=== PATIENT | female | born 1970 ===

== ENCOUNTER 2021-06-30 11:03 | Inpatient (IN) | payer OTHER, SELFPAY ==
--- NOTE | ~2021-06-30 | FL_ITS ---
EXAMINATION: XR FLUOROSCOPY WITH IMAGES CLINICAL INFORMATION: Left ureteral stone COMPARISON: None. TECHNIQUE: Fluoroscopy performed by Dr. Abner Michaud. Fluoroscopy time: 36.4 seconds Images: 2 FINDINGS: There is initially a wire extending into the left ureter. On the final image a left ureteral stent is partially visualized. FL/FL guidance in OR IMPRESSION: Fluoroscopic guidance a pyelogram with left ureteral stent placement.
--- NOTE | ~2021-06-30 | CT_ITS ---
EXAMINATION: CT ABDOMEN AND PELVIS WITHOUT CONTRAST CLINICAL INFORMATION: pt c left flank pain/hematuria hx of stones . COMPARISON: No pertinent prior studies are available for comparison. TECHNIQUE: Multidetector volumetric imaging was performed from the superior aspect of the liver through the pubic symphysis without contrast per renal stone protocol. Sagittal and coronal reformatted images were obtained on the technologist workstation. This CT examination was performed using dose optimization techniques as appropriate, variously including the following: *Automated exposure control *Adjustment of mA and/or kV according to patient size (this includes techniques or standardized protocols for targeted exams where dose is matched to indication/reason for exam; i.e. extremities or head) *Use of iterative reconstruction technique DLP: 895 mGy-cm. FINDINGS: LUNG BASES: The visualized lung bases are unremarkable. LIVER, GALLBLADDER, BILIARY TREE: The non-contrast liver is normal in size, shape, and attenuation. No focal hepatic lesion or biliary ductal dilatation is present. Gallbladder surgically absent PANCREAS: Unremarkable. SPLEEN: Unremarkable. ADRENAL GLANDS: Unremarkable. KIDNEYS AND URETERS: Left-sided hydronephrosis and hydroureter extending up to a 8 mm calcification in the mid left ureter at the level of L5/S1. Contralateral ureter is unremarkable. There are several small intrarenal calculi incidentally seen in the contralateral right kidney the largest of these measures 8 mm in maximal diameter in the mid calyx. BLADDER: Unremarkable. GASTROINTESTINAL TRACT: The small and large bowel are unremarkable. The appendix is nonvisualized and possibly surgically absent. ABDOMINAL WALL: No significant hernia is appreciated. LYMPHOVASCULAR STRUCTURES: No lymphadenopathy. The aorta is unremarkable.. PELVIC VISCERA: Surgically absent OSSEUS STRUCTURES: Multilevel degenerative changes in the spine CT/CT abdomen pelvis wo con IMPRESSION: Left-sided hydronephrosis and hydroureter extending up to an 8 mm calcification in the mid left ureter at the level of the pelvic brim. Nonobstructive intrarenal calculi seen in the contralateral right kidney..
[2021-06-30 12:24] VITALS: BP 156/96; PULSE 77; RESP 18; TEMP 35.9; O2SAT 98; BMI 44.9
[2021-06-30 12:40] LABS: MANUAL DIFF FLAG NO
[2021-06-30 12:46] LABS: Appearance Urine CLEAR; Color Urine YELLOW; Glucose Urine UA NEG (NEG); Leukocyte Esterase Urine NEG (NEG); Nitrite Urine NEG (NEG); Specific Gravity - Urine >= 1.030 (1.005-1.025); UACC Culture Trigger NO; Urine Blood 3+ (NEG); Urine Ketones NEG (NEG); Urine Protein 1+ MG/DL (NEG-TRACE)
[2021-06-30 12:47] LABS: Basophils Percent Auto 0.3 % (0-2); Eosinophils Absolute Auto 0.1 X10*3/uL (0.0-0.4); Hematocrit 41.4 % (37.0-47.0); Hemoglobin 13.4 g/dl (12.0-16.0); Imm Gran Abs Auto 0.04 X10*3/uL (0.00-0.03); Imm Gran Pct Auto 0.3 % (0.0-0.4); Lymphocytes Absolute Auto 2.5 X10*3/uL (1.2-4.9); Lymphocytes Percent Auto 18.2 % (20-40); Mean Corpuscular HGB Conc 32.4 g/dl (31.0-35.0); Mean Corpuscular Hemoglobin 27.5 pg (27.0-33.0); Mean Platelet Volume 10.3 fL (9.4-12.3); Monocytes Absolute Auto 0.7 X10*3/uL (0.1-1.2); Monocytes Percent Auto 5.4 % (2-11); Neutrophils Absolute Auto 10.2 x10*3/uL (2.0-8.3); Neutrophils Percent Auto 74.8 % (45-73); Platelet Count 320 X10*3/uL (160-400); Red Blood Count 4.87 X10*6/uL (4.20-5.50); Red Cell Distribution Width 12.9 % (11.0-16.0); White Blood Count 13.6 X10*3/uL (4.8-10.8)
[2021-06-30 12:58] LABS: Anion Gap 11 (12-20); Blood Urea Nitrogen 15 mg/dL (9-16); Calcium 9.7 mg/dL (8.4-10.2); Carbon Dioxide 27 mmol/L (22-29); Chloride 105 mmol/L (96-108); Creatinine Clr Calc Pharmacy 84.3; Estimated Glomerular Filt Rate > 60; Glucose Random 183 mg/dL (60-115); Potassium 4.2 mmol/L (3.3-5.1); Sodium 139 mmol/L (135-145)
[2021-06-30 13:11] LABS: RBC Urine 50-75 /HPF (0); Squamous Epithelial Cell Urine 2+ /LPF; UACC CULT YES
[2021-06-30 21:21] VITALS: BP 143/96; PULSE 79; RESP 18; TEMP 36.1; O2SAT 98
--- NOTE | 2021-06-30 21:28 | ED.ABDPAIN ---
HPI - Abdominal Pain General Chief Complaint: Abdominal Pain Stated Complaint: back and abd pain , nasuea Time Seen by Provider: 06/30/21 21:22 Source: patient Mode of arrival: ambulatory Limitations: no limitations History of Present Illness HPI narrative: 51-year-old Kitt[place]-speaking female with a past medical history of kidney stones, diabetes, hypertension, hyperlipidemia presenting to the ED with complaints of atraumatic left back/flank/left lower quadrant/left groin pain with associated nausea/vomiting for the past 2 days. Reports that she seen her primary care provider on Wednesday and was called reporting that she had blood in her urine and that if she developed any back pain or abdominal pain that she should come to the emergency department for further evaluation treatment. She denies any fevers, chills, dizziness, headaches, neck pain/stiffness, trouble swallowing or breathing, chest pain or shortness of breath, dyspnea on exertion, orthopnea, palpitations, paresthesias, dysuria, hematuria, abnormal vaginal discharge, black or bloody stools, rashes, recent falls, trauma, IV drug use, recent travel or sick contacts or any other symptoms complaints or concerns at this time. MD elicited complaint: abdominal pain and flank pain Pertinent past history: kidney stones Onset (ago): day(s) (2) Pain Consistency: constant Location: LLQ and L flank Severity: moderate Quality: sharp Radiation: back Exacerbating factors: nothing Relieving factors: nothing Associated symptoms: nausea and vomiting Related Data Allergies Allergy/AdvReac Type Severity Reaction Status Date / Time No Known Allergies Allergy Verified 06/30/21 12:23 [No Known Allergies*] Review of Systems Review of Systems Constitutional : No Fever, No Chills, No Night Sweats, No Fatigue, No Malaise Cardiovascular : No Chest Pain, No SOB Respiratory : No Cough, No Sputum, No Wheezing, No Dyspnea Gastrointestinal : + Nausea, + Vomiting, + abdominal Pain, + Flank pain, No Hematochezia, No Melena, No Diarrhea Genitourinary : No irregular bleeding, No Dysuria, No Urinary Frequency, No Hematuria,No Urinary Incontinence, No Urgency, No Flank Pain Musculoskeletal : No joint pain, No Myalgias, No Joint Swelling Skin : No Skin Lesions, No rash Neuro : No Weakness, No Numbness, No Paresthesias, No Loss of Consciousness, No Dizziness, No Headache Heme/Lymph: No Lymphadenopathy Endocrine : No Temperature Intolerance Yes all other systems are reviewed and are negative [facility] Past Medical History Attestation statement: The following information was validated with the patient. Social History Social History Advance Directives: No Advance Directives Information Provided: No Physical Exam ED Vital Signs: Vital Signs - 24 hr 06/30/21 12:24 06/30/21 21:21 Temperature 96.6 F L 97.0 F Pulse Rate 77 79 Respiratory Rate 18 18 Blood Pressure 156/96 H 143/96 H Pulse Oximetry 98 98 BMI result Body Mass Index 44.9 Vital signs have been reviewed and blood pressure 156/96. Pulse 77. Respiration 18. Temperature 96.6 degrees orally. Oxygen saturation 98% on room air. Appearance: Alert. Oriented X3. No acute distress. Head: Normal external exam. Normocephalic. Eyes: PERRLA. EOMI. Conjunctiva and sclera normal. Eyelids normal. ENT: Pharynx normal. Uvula midline. Moist mucous membranes. No trismus noted. No drooling noted. No muffled voice noted. Neck: Normal inspection. Neck supple. FROM. No adenopathy. No meningeal signs. CVS: Normal heart rate and rhythm. Heart sound normal. No murmurs noted. Pulses normal throughout. Respiratory: No respiratory distress. Painless inspiration. Breath sounds normal. No wheezes/rales/rhonchi noted. Chest nontender. No accessory muscle usage noted or decreased air movement noted. Abdomen: Soft and moderate tenderness palpation to the left flank/left lower quadrant/left groin with guarding. Nondistended. No rigidity. Bowel sounds normal in all 4 quadrants. No distention noted. No organomegaly noted. No visible injury noted. No rebound tenderness. Negative Rovsing sign. Negative obturator's sign. Negative psoas sign. Negative [place] sign. Back: + left sided CVA tenderness. No right-sided CVA tenderness noted. Full range of motion noted. No rashes/lesion/induration/fluctuance or signs of infection noted. Patient has a normal steady gait. Patient neuro intact bilateral and distally on all 4 extremities. Reflexes intact bilaterally and distally in all 4 extremities. Skin: Skin warm and dry. Normal skin color. Normal skin turgor. No rashes/lesions/lacerations noted. Extremities: Extremities exhibit normal range of motion. Extremities nontender. Neuro: Oriented X 3. No motor deficit. No sensory deficit. Reflexes normal. Normal steady gait. CN's II-XII intact bilaterally? Course Course Course Narrative: 21:20pm - 51-year-old [place]-speaking female with a past medical history of kidney stones, diabetes, hypertension, hyperlipidemia presenting to the ED with complaints of atraumatic left back/flank/left lower quadrant/left groin pain with associated nausea/vomiting for the past 2 days. Reports that she seen her primary care provider on Wednesday and was called reporting that she had blood in her urine and that if she developed any back pain or abdominal pain that she should come to the emergency department for further evaluation treatment Labs were obtained while the patient was in the waiting room and she had an elevated white blood cell count at 13,000. Anion gap 11. Random glucose 183. Otherwise all other labs are within normal limits. UA revealed +1 protein and lots of red blood cells and 5-white blood cells. Plan: Therefore at this time will obtain a CT scan abdomen pelvis without IV contrast. Provide p.o. Zofran and IM Toradol and re-evaluate. Reevaluation(s) Reevaluation #1: - WBC 13,000 otherwise all other labs WNL. UA revealed blood otherwise negative nitrates/negative leukocytes. She has 5-9 white blood cells and 2 epithelial cells she denies any dysuria therefore most likely not a UTI or pyelonephritis at this time. Patient is tolerating p.o. fluids she was able to drink orange juice. Although her CT scan of her abdomen and pelvis without IV contrast revealed a 8 mm stone with left-sided hydronephrosis and hydroureter therefore I consulted with Dr. Michaud and he recommended admitting the patient to the hospitalist service due to her history of diabetes and being over the age of 48. Therefore I spoke to Dr. Villanueva and he will admit at this time. Patient understands agrees with this plan. Will give a L of IV fluids, 125 mg of IV Solu-Medrol and 0.8 mg of Flomax and plan to admit. Time: 22:21 MDM - Abdominal Pain Medical Records Attestation: I reviewed the patient's medical records. Lab Data Attestation: I reviewed the patient's lab results. Result diagrams: 06/30/21 12:36 06/30/21 12:36 Labs: Lab Results 06/30/21 06/30/21 06/30/21 Range/Units 12:36 12:36 12:36 WBC 13.6 H (4.8-10.8) X10*3/uL RBC 4.87 (4.20-5.50) X10*6/uL Hgb 13.4 (12.0-16.0) g/dl Hct 41.4 (37.0-47.0) % MCV 85.0 (80.0-98.0) fL MCH 27.5 (27.0-33.0) pg MCHC 32.4 (31.0-35.0) g/dl RDW 12.9 (11.0-16.0) % Plt Count 320 (160-400) X10*3/uL MPV 10.3 (9.4-12.3) fL Immature Gran % (Auto) 0.3 (0.0-0.4) % Neut % (Auto) 74.8 H (45-73) % Lymph % (Auto) 18.2 L (20-40) % [place] % (Auto) 5.4 (2-11) % Eos % (Auto) 1.0 (0-4) % Baso % (Auto) 0.3 (0-2) % Lymph # (Auto) 2.5 (1.2-4.9) X10*3/uL [place] # (Auto) 0.7 (0.1-1.2) X10*3/uL Eos # (Auto) 0.1 (0.0-0.4) X10*3/uL Baso # (Auto) 0.0 (0.0-0.2) X10*3/uL Abs Immat Gran (auto) 0.04 H (0.00-0.03) X10*3/uL Absolute Neuts (auto) 10.2 H (2.0-8.3) x10*3/uL Absolute Nucleated RBC 0.000 (0.0-0.012) X10*3/uL Nucleated RBC % (auto) 0.0 (0.0-0.2) /100WBC Sodium 139 (135-145) mmol/L Potassium 4.2 (3.3-5.1) mmol/L Chloride 105 (96-108) mmol/L Carbon Dioxide 27 (22-29) mmol/L Anion Gap 11 L (12-20) BUN 15 (9-16) mg/dL Creatinine 0.84 (0.5-1.4) mg/dL Estim Creat Clear Calc 84.3 Estimated GFR > 60 Random Glucose 183 H (60-115) mg/dL Calcium 9.7 (8.4-10.2) mg/dL Urine Color YELLOW Urine Appearance CLEAR Urine pH 6.0 (5.0-8.0) Ur Specific [place] >= 1.030 H (1.005-1.025) Urine Protein 1+ H (NEG-TRACE) MG/DL Urine Glucose (UA) NEG (NEG) MG/DL Urine Ketones NEG (NEG) MG/DL Urine Blood 3+ H (NEG) Urine Nitrite NEG (NEG) Ur Leukocyte Esterase NEG (NEG) Urine RBC 50-75 H (0) /HPF Urine WBC 5-9 H (0-4) /HPF Ur Squamous Epith Cells 2+ /LPF Urine Bacteria NONE /LPF Imaging Data CT scan abdomen pelvis without IV contrast: Attestation: I personally reviewed and interpreted this imaging study as follows: Radiologist's impression: FINDINGS: LUNG BASES: The visualized lung bases are unremarkable. LIVER, GALLBLADDER, BILIARY TREE: The non-contrast liver is normal in size, shape, and attenuation. No focal hepatic lesion or biliary ductal dilatation is present.? Gallbladder surgically absent PANCREAS: Unremarkable. SPLEEN: Unremarkable. ADRENAL GLANDS: Unremarkable. KIDNEYS AND URETERS: Left-sided hydronephrosis and hydroureter extending up to a 8 mm calcification in the mid left ureter at the level of L5/S1. Contralateral ureter is unremarkable. There are several small intrarenal calculi incidentally seen in the contralateral right kidney the largest of these measures 8 mm in maximal diameter in the mid calyx. BLADDER: Unremarkable. GASTROINTESTINAL TRACT: The small and large bowel are unremarkable. The appendix is nonvisualized and possibly surgically absent. ABDOMINAL WALL: No significant hernia is appreciated. LYMPHOVASCULAR STRUCTURES: No lymphadenopathy.? The aorta is unremarkable.. PELVIC VISCERA: Surgically absent OSSEUS STRUCTURES: Multilevel degenerative changes in the spine CT/CT abdomen pelvis wo con IMPRESSION: Left-sided hydronephrosis and hydroureter extending up to an 8 mm calcification in the mid left ureter at the level of the pelvic brim. Nonobstructive intrarenal calculi seen in the contralateral right kidney.. Critical Care Time Critical Care Time Critical Care Time: Yes Total Critical Care Time: 60 Attestation: I personally attest to this time spent taking care of the patient Discharge Plan Discharge Clinical Impression: Kidney calculus, Hydronephrosis, Hydroureter on left Patient Disposition: Admitted As Inpatient
[2021-06-30] MEDS: Ketorolac Tromethamine 60 MG/2 ML VIAL IM (21:53)
[2021-06-30] MEDS: Ondansetron ODT 4 MG TAB.RAPDIS TRANSLINGU (21:53)
--- NOTE | 2021-06-30 22:27 | P.HPHOSP_ITS ---
History of Present Illness Date of Service: 06/30/21 Chief Complaint: flank pain/back pain 51-year-old female with a past medical history of hypertension, hyperlipidemia, diabetes, history of kidney stones presented to the hospital with a chief complaint of blood in the urine. Patient reported she went to PCP's office for routine blood work noted to have blood in the urine; when asked patient complained of low back pains his flank pain/ low back pain for the past 2 days. Denies any associated fevers. Denies any burning or frequency. Denies any lower abdominal pain. Patient denies any numbness tingling or focal weakness. Denies any chest pain or palpitations. Review of all other systems is negative except mentioned above ER course: Per ER team patient noted to have mild leukocytosis; on the CT abdomen noted to have left-sided hydronephrosis with hydroureter with 8 mm calcification in the left ureter; spoke to Dr. Michaud who suggested admission to the medicine service. PMFSH Pertinent family history: Denies any family history of kidney stones Social History Advance Directives: No Advance Directives Information Provided: No Meds Allergies Allergy/AdvReac Type Severity Reaction Status Date / Time No Known Allergies Allergy Verified 06/30/21 12:23 [No Known Allergies*] Active Medications: Current Medications Sodium Chloride (Ns) 1,000 mls @ 999 mls/hr IVCONT .Q1H1M MALI Stop: 06/30/21 23:30 Pharmacy Consult (Consult Rx Perform Med Rec) 1 each MISCELLANE ONCE PRN PRN Reason: Consult order Physical Exam Vital Signs and Narrative: Vital Signs: Last Vital Signs Temp 97.0 F 06/30/21 21:21 Pulse 79 06/30/21 21:21 Resp 18 06/30/21 21:21 BP 143/96 H 06/30/21 21:21 Pulse Ox 98 06/30/21 21:21 BMI result Body Mass Index 44.9 Results Labs CBC and Chem 7: 06/30/21 12:36 06/30/21 12:36 Labs: Laboratory Results - last 24 hr 06/30/21 06/30/21 06/30/21 12:36 12:36 12:36 MCV 85.0 MCH 27.5 MCHC 32.4 RDW 12.9 Plt Count 320 MPV 10.3 Immature Gran % (Auto) 0.3 Neut % (Auto) 74.8 H Lymph % (Auto) 18.2 L [place] % (Auto) 5.4 Eos % (Auto) 1.0 Baso % (Auto) 0.3 Lymph # (Auto) 2.5 [place] # (Auto) 0.7 Eos # (Auto) 0.1 Baso # (Auto) 0.0 Abs Immat Gran (auto) 0.04 H Absolute Neuts (auto) 10.2 H Absolute Nucleated RBC 0.000 Nucleated RBC % (auto) 0.0 Anion Gap 11 L Estim Creat Clear Calc 84.3 Estimated GFR > 60 Random Glucose 183 H Calcium 9.7 Urine Color YELLOW Urine Appearance CLEAR Urine pH 6.0 Ur Specific [place] >= 1.030 H Urine Protein 1+ H Urine Glucose (UA) NEG Urine Ketones NEG Urine Blood 3+ H Urine Nitrite NEG Ur Leukocyte Esterase NEG Urine RBC 50-75 H Urine WBC 5-9 H Ur Squamous Epith Cells 2+ Urine Bacteria NONE Imaging Radiologist's Impressions: Impressions Abdomen/Pelvis CT 06/30/21 21:35 IMPRESSION: Left-sided hydronephrosis and hydroureter extending up to an 8 mm calcification in the mid left ureter at the level of the pelvic brim. Nonobstructive intrarenal calculi seen in the contralateral right kidney.. Assessment and Plan (1) Kidney stones: Status: Acute Plan 51-year-old female with a past medical history of hypertension, hyperlipidemia, diabetes, history of kidney stones presented to the hospital with a chief complaint of blood in the urine/ Flank pain/back pain. Noted to have ureteral calculus with hydronephrosis. Admitted for further management. Left ureteral calculus/left hydroureteronephrosis; Dr. Michaud from urology was notified Pain control IV fluids NPO after midnight UA showed 5-9 wbc's dizzy but negative for leukocyte esterase and nitrite. Microscopic hematuria -the setting of Calculus. History of diabetes: Insulin sliding scale History of hypertension / hyperlipidemia: Continue home medications DVT prophylaxis: Subcu heparin Code status: Full code Quality Stroke Does the patient have a stroke diagnosis?: No VTE Prior VTE?: No VTE Risk Level:: Medical - moderate - high VTE Device Contraindication: Treatment Not Indicated VTE Drug Contraindication: N/A - Med Ordered
[2021-06-30] MEDS: 0.9 % Sodium Chloride 1,000 ML 999 ML IVCONT (22:32)
[2021-06-30] MEDS: methylPREDNISolone Sod Succ 125 MG/2 ML VIAL IVPUSH (22:41)
[2021-06-30 22:42] LABS: Glucose, Whole Blood 234 mg/dL (60-115)
[2021-06-30] MEDS: Tamsulosin HCL 0.4 MG CAPSULE 0.8 MG PO (22:42)
[2021-06-30] MEDS: Heparin Sodium,Porcine 5,000 UNIT/ML VIAL 5000 UNIT SUBCUT (22:42)
[2021-06-30 22:54] LABS: COVID-19 Test Negative (Negative)
[2021-07-01] VITALS (13 sets, daily range): BP systolic 132–160; BP diastolic 71–97; PULSE 82–144; RESP 16–28; TEMP 36.1–37.8; O2SAT 91–97; BMI 47.3
--- NOTE | 2021-07-01 | ECG_ITS ---
Test Reason : tachy Blood Pressure : / mmHG Vent. Rate : 133 BPM Atrial Rate : 133 BPM P-R Int : 150 ms QRS Dur : 076 ms QT Int : 288 ms P-R-T Axes : 040 031 022 degrees QTc Int : 428 ms Sinus tachycardia Otherwise normal ECG When compared with ECG of 18-FEB-2018 19:58, Vent. rate has increased BY 49 BPM Referred By: Katerin Mcdaniel Electronically Signed By:PAVEL BLANCO
[2021-07-01] MEDS: Dextrose 5 % and 0.9 % NaCl 1,000 ML 50 ML IVCONT (03:00)
[2021-07-01] MEDS: Morphine Sulfate 2 MG/ML CARTRIDGE 1 MG IVPUSH (06:53)
[2021-07-01] MEDS: 0.9 % Sodium Chloride 500 ML IV (07:05)
[2021-07-01 07:23] LABS: MANUAL DIFF FLAG NO
[2021-07-01 07:26] LABS: Hemoglobin 13.4 g/dl (12.0-16.0); Imm Gran Abs Auto 0.02 X10*3/uL (0.00-0.03); Imm Gran Pct Auto 0.2 % (0.0-0.4); Lymphocytes Absolute Auto 1.1 X10*3/uL (1.2-4.9); Lymphocytes Percent Auto 11.4 % (20-40); Mean Corpuscular HGB Conc 32.7 g/dl (31.0-35.0); Mean Corpuscular Hemoglobin 27.4 pg (27.0-33.0); Mean Corpuscular Volume 83.8 fL (80.0-98.0); Mean Platelet Volume 10.7 fL (9.4-12.3); Monocytes Percent Auto 0.4 % (2-11); Neutrophils Absolute Auto 8.3 x10*3/uL (2.0-8.3); Platelet Count 306 X10*3/uL (160-400); Red Blood Count 4.89 X10*6/uL (4.20-5.50); Red Cell Distribution Width 12.8 % (11.0-16.0); White Blood Count 9.5 X10*3/uL (4.8-10.8)
--- NOTE | 2021-07-01 07:33 | PC.NURSE ---
Patient brought to overflow at approx 0430. Patient awaiting bed assignment for C admit. Upon arrival, new IV inserted r/t 20 LAC positional. Patient c/o mild pain - headache & lower back pain upon arrival. HR initially 110-120, then went to bathroom after 0630am, and patient HR sustaining in 140's, appearing to be Sinus tach. Patient denies chest pain, talking / texting on phone. Dr Villanueva sent pic of rhythm from bedside - temp checked as well - [address] Villanueva ordered 500ml NS bolus & 1mg morphine. Morphine given with little effect. Bolus given. after 7am, HR went up to 150's - still appearing to be ST. Dr Mcdaniel made aware of current situation and orders from prev night MD. Dr Mcdaniel ordered EKG, ativan and lopressor. Report given to Rebekah JAIN - EKG done.
[2021-07-01 07:40] LABS: Anion Gap 11 (12-20); Blood Urea Nitrogen 12 mg/dL (9-16); Calcium 9.8 mg/dL (8.4-10.2); Carbon Dioxide 23 mmol/L (22-29); Chloride 107 mmol/L (96-108); Creatinine Clr Calc Pharmacy 90.9; Estimated Glomerular Filt Rate > 60; Glucose Random 302 mg/dL (60-115); Potassium 4.7 mmol/L (3.3-5.1); Sodium 136 mmol/L (135-145)
[2021-07-01 07:52] LABS: Glucose, Whole Blood 279 mg/dL (60-115)
[2021-07-01] MEDS: Metoprolol Tartrate 2.5 MG in 0.9 % Sodium Chloride 50 ML 210 MG IV (07:52)
[2021-07-01] MEDS: Heparin Sodium,Porcine 5,000 UNIT/ML VIAL 5000 UNIT SUBCUT (07:57)
[2021-07-01] MEDS: Insulin Lispro 100 UNIT/ML 3 ML VIAL SUBCUT (07:58)
--- NOTE | 2021-07-01 08:25 | PC.NURSE ---
Pt A&OX4, LCA, HR ST in the 130's during report, EKG shows ST at this time, MD made aware, medicated as per MAR orders. Pt denies pain at this time, NPO since midnight, abd soft, non tender +BS x4. Dr. Michaud saw pt this morning, awaiting plan. Call young within reach. Will continue to monitor.
--- NOTE | 2021-07-01 09:07 | PM.UROCN ---
History of Present Illness Consult details Consult date: 07/01/21 Narrative: Tejal is a pleasant female. Presents to hospital with left-sided flank pain Creatinine 0.78, elevated WBC Imaging - Left-sided hydronephrosis and hydroureter extending up to an 8 mm calcification in the mid left ureter at the level of the pelvic brim. Nonobstructive intrarenal calculi seen in the contralateral right kidney. Is not tolerating oral pain medication Background diabetes Plan for intervention with left ureteroscopy laser lithotripsy and stent placement Review of Systems Constitutional: Constitutional: Reports as per HPI and Reports no additional constitutional complaints Cardiovascular: Cardiovascular: Reports as per HPI and Reports no additional cardiovascular complaints Respiratory: Respiratory: Reports as per HPI and Reports no additional respiratory complaints Gastrointestinal: Gastrointestinal: Reports as per HPI and Reports no additional gastrointestinal complaints Genitourinary: Genitourinary: Reports as per HPI Musculoskeletal: Musculoskeletal: Reports no additional musculoskeletal complaints and Reports as per HPI Neurologic: Reports system reviewed and no additional complaints, except as documented and Reports as per HPI [facility] Social History Social History Advance Directives: No Advance Directives Information Provided: No Meds Allergies Allergy/AdvReac Type Severity Reaction Status Date / Time No Known Allergies Allergy Verified 06/30/21 12:23 [No Known Allergies*] Active Medications: Current Medications Acetaminophen (Acetaminophen 325 Mg Tablet) 650 mg PO Q6H PRN PRN Reason: Pain, Mild (Pain Scale 1-3) Dextrose (Dextrose 50 % 25 Gm/50 Ml Syringe) 25 gm IVPUSH Q15M PRN; Protocol PRN Reason: per Hypoglycemia Standing Ord. Glucose (Glucose Gel 15 Gm Gel..Gram.) 15 gm PO Q15M PRN; Protocol PRN Reason: per Hypoglycemia Standing Ord. Heparin Sodium (Porcine) (Heparin Sodium,Porcine 5,000 Unit/Ml Vial) 5,000 unit SUBCUT Q8H [facility] Last Admin: 07/01/21 07:57 Dose: 5,000 unit Documented by: Hydromorphone HCl (Hydromorphone Hcl 1 Mg/Ml Syringe) 0.5 mg IVPUSH Q4H PRN; Protocol PRN Reason: Pain, Severe (Pain Scale 7-10) Dextrose/Sodium Chloride (D5ns) 1,000 mls @ 50 mls/hr IVCONT .Q20H [facility] Last Admin: 07/01/21 03:00 Dose: 50 mls/hr Documented by: Insulin Human Lispro (Insulin Lispro 100 Unit/Ml 3 Ml Vial) 0 unit SUBCUT QIDACHS [facility]; Protocol Last Admin: 07/01/21 07:58 Dose: 6 unit Documented by: Melatonin (Melatonin 3 Mg Tablet) 6 mg PO BEDTIME PRN PRN Reason: Insomnia Pharmacy Consult (Consult Rx Perform Med Rec) 1 each MISCELLANE ONCE PRN PRN Reason: Consult order Senna (Sennosides 8.6 Mg Tablet) 17.2 mg PO BEDTIME PRN PRN Reason: Constipation Sodium Chloride (0.9 % Sodium Chloride Flush 3 Ml Syringe) [facility] Last Admin: 07/01/21 07:58 Dose: Not Given Documented by: Temazepam (Temazepam 15 Mg Capsule) 15 mg PO BEDTIME PRN PRN Reason: Insomnia Home Medications Medication Instructions Recorded Confirmed Last Taken Type ascorbic acid (vitamin C) 500 mg 500 mg PO DAILY 07/01/21 07/01/21 Unknown History tablet atorvastatin 40 mg tablet 1 tab DAILY 07/01/21 07/01/21 Unknown History buspirone 15 mg tablet 1 tab PO TID 07/01/21 07/01/21 Unknown History cholecalciferol (vitamin D3) 10 10 mcg PO DAILY 07/01/21 07/01/21 Unknown History mcg (400 unit) tablet clonazepam 2 mg tablet 1 tab PO BID PRN 07/01/21 07/01/21 Unknown History cyanocobalamin (vitamin B-12) 1,000 mcg PO DAILY 07/01/21 07/01/21 Unknown History 1,000 mcg tablet cyclobenzaprine 10 mg tablet 1 tab PO TID 07/01/21 07/01/21 Unknown History divalproex 500 mg tablet,extended 3 tab PO BEDTIME 07/01/21 07/01/21 Unknown History release 24 hr escitalopram oxalate 20 mg tablet 1 tab QAM 07/01/21 07/01/21 Unknown History eszopiclone 3 mg tablet 1 tab BEDTIME 07/01/21 07/01/21 Unknown History hydroxyzine pamoate 50 mg capsule 1 cap PO TID 07/01/21 07/01/21 Unknown History ibuprofen 600 mg tablet 1 tab PO TID 07/01/21 07/01/21 Unknown History lisinopril 5 mg tablet 1 tab PO DAILY 07/01/21 07/01/21 Unknown History montelukast 10 mg tablet 1 tab BEDTIME 07/01/21 07/01/21 Unknown History omega-3 fatty acids-vitamin E 1 cap PO DAILY 07/01/21 07/01/21 Unknown History 1,000 mg capsule prazosin 2 mg capsule 2 cap PO BEDTIME 07/01/21 07/01/21 Unknown History pyridoxine (vitamin B6) 100 mg 1 tab DAILY 07/01/21 07/01/21 Unknown History tablet quetiapine 400 mg tablet 2 tab PO BEDTIME 07/01/21 07/01/21 Unknown History ramelteon 8 mg tablet 2 tab PO BEDTIME 07/01/21 07/01/21 Unknown History topiramate 200 mg tablet 1 tab BEDTIME 07/01/21 07/01/21 Unknown History vitamin E 400 unit capsule 400 unit PO DAILY 07/01/21 07/01/21 Unknown History Physical Exam Vital Signs: Vital Signs: Last Vital Signs Temp 98 F 07/01/21 06:40 Pulse 121 H 07/01/21 08:03 Resp 18 07/01/21 08:03 BP 134/82 07/01/21 08:03 Pulse Ox 92 07/01/21 08:03 BMI result Body Mass Index 44.9 Const: General: cooperative, healthy appearing, comfortable and no acute distress Orientation/consciousness: patient oriented x3 HEENT: Face and sinus: Yes normal facial exam Mouth: moist mucous membranes Neck: Neck: Yes normal visual inspection, Yes full ROM and Yes trachea midline Chest: Chest palpation & inspection: normal inspection of the chest Resp: Effort & Inspection: normal respiratory effort, able to speak in complete sentences and no respiratory distress GI: Inspection: Yes normal to inspection Back/Spine/Pelvis: Cervical Spine: normal cervical lordosis Thoracic/Lumbar Spine: thoracic and lumbar spine normal to inspection Skin: General skin exam: no rashes or lesions noted Neuro: General: patient oriented x3, tone normal and moves all extremities Extrem: General: Yes normal to inspection and Yes capillary refill normal Results Labs Result diagrams: 07/01/21 07:05 07/01/21 07:05 Labs: Abnormal lab results 06/30/21 06/30/21 06/30/21 Range/Units 12:36 12:36 12:36 WBC 13.6 H (4.8-10.8) X10*3/uL Neut % (Auto) 74.8 H (45-73) % Lymph % (Auto) 18.2 L (20-40) % [place] % (Auto) (2-11) % Lymph # (Auto) (1.2-4.9) X10*3/uL [place] # (Auto) (0.1-1.2) X10*3/uL Abs Immat Gran (auto) 0.04 H (0.00-0.03) X10*3/uL Absolute Neuts (auto) 10.2 H (2.0-8.3) x10*3/uL Anion Gap 11 L (12-20) POC Glucose (60-115) mg/dL Random Glucose 183 H (60-115) mg/dL Ur Specific [place] >= 1.030 H (1.005-1.025) Urine Protein 1+ H (NEG-TRACE) MG/DL Urine Blood 3+ H (NEG) Urine RBC 50-75 H (0) /HPF Urine WBC 5-9 H (0-4) /HPF 06/30/21 07/01/21 07/01/21 Range/Units 22:25 07:05 07:05 WBC (4.8-10.8) X10*3/uL Neut % (Auto) 88.0 H (45-73) % Lymph % (Auto) 11.4 L (20-40) % [place] % (Auto) 0.4 L (2-11) % Lymph # (Auto) 1.1 L (1.2-4.9) X10*3/uL [place] # (Auto) 0.0 L (0.1-1.2) X10*3/uL Abs Immat Gran (auto) (0.00-0.03) X10*3/uL Absolute Neuts (auto) (2.0-8.3) x10*3/uL Anion Gap 11 L (12-20) POC Glucose 234 H (60-115) mg/dL Random Glucose 302 H (60-115) mg/dL Ur Specific [place] (1.005-1.025) Urine Protein (NEG-TRACE) MG/DL Urine Blood (NEG) Urine RBC (0) /HPF Urine WBC (0-4) /HPF 07/01/21 Range/Units 07:42 WBC (4.8-10.8) X10*3/uL Neut % (Auto) (45-73) % Lymph % (Auto) (20-40) % [place] % (Auto) (2-11) % Lymph # (Auto) (1.2-4.9) X10*3/uL [place] # (Auto) (0.1-1.2) X10*3/uL Abs Immat Gran (auto) (0.00-0.03) X10*3/uL Absolute Neuts (auto) (2.0-8.3) x10*3/uL Anion Gap (12-20) POC Glucose 279 H (60-115) mg/dL Random Glucose (60-115) mg/dL Ur Specific [place] (1.005-1.025) Urine Protein (NEG-TRACE) MG/DL Urine Blood (NEG) Urine RBC (0) /HPF Urine WBC (0-4) /HPF Short CBC 06/30/21 07/01/21 Range/Units 12:36 07:05 WBC 13.6 H 9.5 (4.8-10.8) X10*3/uL Hgb 13.4 13.4 (12.0-16.0) g/dl Hct 41.4 41.0 (37.0-47.0) % Plt Count 320 306 (160-400) X10*3/uL BMP 06/30/21 07/01/21 12:36 07:05 Sodium 139 136 Potassium 4.2 4.7 Chloride 105 107 Carbon Dioxide 27 23 BUN 15 12 Creatinine 0.84 0.78 Calcium 9.7 9.8 Urine 06/30/21 Range/Units 12:36 Urine Color YELLOW Urine Appearance CLEAR Urine pH 6.0 (5.0-8.0) Ur Specific [place] >= 1.030 H (1.005-1.025) Urine Protein 1+ H (NEG-TRACE) MG/DL Urine Glucose (UA) NEG (NEG) MG/DL All other labs normal. Assessment and Plan (1) Kidney stones: Status: Acute Plan Ureteroscopy We discussed the nature of the decision and reasonable alternatives for performing the above surgery. Interventions include chemical dissolution, ESWL, ureteroscopy with laser lithotripsy and stent placement, PCNL. Options such as medical therapy were discussed. The relative uncertainties and benefits related to each alternate procedure were adequately discussed. General surgical risks including, but not limited to, pain, bleeding, infection, myocardial infarction, pulmonary embolus, deep vein thrombosis and cerebrovascular accident which may result in further hospitalization were discussed. Full disclosure of the procedure as well as all major risks, benefits and complications were discussed including but not limited to damage to the urethra, bladder and kidney infection, damage to the ureter, stent migration or malposition, scarring to the renal pelvis, remnant stone fragments, subsequent stone passage with need for secondary procedures. The overall secondary procedure rate is approximately 10-15%. The success rate of the procedure was discussed. Success of the procedure in the short-term does not necessarily guarantee that long-term success will be maintained. Suitable follow up will need to be maintained. The patient showed understanding of discussion and wishes to proceed with - cystoscopy, retrograde, ureteroscopy, possible lithotripsy/stone basketing and stent on the left side - semi rigid Procedures Date of Service Date of Service: 07/01/21
--- NOTE | 2021-07-01 09:31 | HO.PM.IMPN ---
Subjective Subjective Date of Service: 07/01/21 Interval History: sinus tachycardia,renal stone Review of Systems Patient seems anxious ,has left-sided flank pain. Denies any nausea vomiting or fever or chills. Physical Exam Vital Signs: Vital Signs: Last Vital Signs Temp 98 F 07/01/21 06:40 Pulse 121 H 07/01/21 08:03 Resp 18 07/01/21 08:03 BP 134/82 07/01/21 08:03 Pulse Ox 92 07/01/21 08:03 BMI result Body Mass Index 44.9 Appearance: Alert.? Oriented X3.? seems has pain/anxious. cvs: rrr, [id number] , no murmur res: clear to auscultation ,no rhonchii or wheezing abd: no rebound or guarding ,left flank pain, bs present. ext pulses present , no cyanosis. neuro: axo3 , nonfocal. Objective Data Active Medications Acetaminophen (Acetaminophen 325 Mg Tablet) 650 mg PO Q6H PRN PRN Reason: Pain, Mild (Pain Scale 1-3) Dextrose (Dextrose 50 % 25 Gm/50 Ml Syringe) 25 gm IVPUSH Q15M PRN; Protocol PRN Reason: per Hypoglycemia Standing Ord. Glucose (Glucose Gel 15 Gm Gel..Gram.) 15 gm PO Q15M PRN; Protocol PRN Reason: per Hypoglycemia Standing Ord. Heparin Sodium (Porcine) (Heparin Sodium,Porcine 5,000 Unit/Ml Vial) 5,000 unit SUBCUT Q8H [facility] Last Admin: 07/01/21 07:57 Dose: 5,000 unit Documented by: JOHNNY Hydromorphone HCl (Hydromorphone Hcl 1 Mg/Ml Syringe) 0.5 mg IVPUSH Q4H PRN; Protocol PRN Reason: Pain, Severe (Pain Scale 7-10) Dextrose/Sodium Chloride (D5ns) 1,000 mls @ 50 mls/hr IVCONT .Q20H [facility] Last Admin: 07/01/21 03:00 Dose: 50 mls/hr Documented by: KEVIN Comments: given by prev RN in ER. Insulin Human Lispro (Insulin Lispro 100 Unit/Ml 3 Ml Vial) 0 unit SUBCUT QIDACHS [facility]; Protocol Last Admin: 07/01/21 07:58 Dose: 6 unit Documented by: JOHNNY Melatonin (Melatonin 3 Mg Tablet) 6 mg PO BEDTIME PRN PRN Reason: Insomnia Pharmacy Consult (Consult Rx Perform Med Rec) 1 each MISCELLANE ONCE PRN PRN Reason: Consult order Senna (Sennosides 8.6 Mg Tablet) 17.2 mg PO BEDTIME PRN PRN Reason: Constipation Sodium Chloride (0.9 % Sodium Chloride Flush 3 Ml Syringe) 3 ml IVFLUSH QSHIFT [facility] Last Admin: 07/01/21 07:58 Dose: Not Given Documented by: JOHNNY Non-Admin Reason: IV Running Temazepam (Temazepam 15 Mg Capsule) 15 mg PO BEDTIME PRN PRN Reason: Insomnia Labs CBC & Chem 7: 07/01/21 07:05 07/01/21 07:05 Labs: Laboratory Results - last 24 hr 06/30/21 06/30/21 06/30/21 12:36 12:36 12:36 MCV 85.0 MCH 27.5 MCHC 32.4 RDW 12.9 Plt Count 320 MPV 10.3 Immature Gran % (Auto) 0.3 Neut % (Auto) 74.8 H Lymph % (Auto) 18.2 L [place] % (Auto) 5.4 Eos % (Auto) 1.0 Baso % (Auto) 0.3 Lymph # (Auto) 2.5 [place] # (Auto) 0.7 Eos # (Auto) 0.1 Baso # (Auto) 0.0 Abs Immat Gran (auto) 0.04 H Absolute Neuts (auto) 10.2 H Absolute Nucleated RBC 0.000 Nucleated RBC % (auto) 0.0 Anion Gap 11 L Estim Creat Clear Calc 84.3 Estimated GFR > 60 POC Glucose Random Glucose 183 H Calcium 9.7 Urine Color YELLOW Urine Appearance CLEAR Urine pH 6.0 Ur Specific [place] >= 1.030 H Urine Protein 1+ H Urine Glucose (UA) NEG Urine Ketones NEG Urine Blood 3+ H Urine Nitrite NEG Ur Leukocyte Esterase NEG Urine RBC 50-75 H Urine WBC 5-9 H Ur Squamous Epith Cells 2+ Urine Bacteria NONE COVID-19 ([facility]) COVID-19 Clin Com 06/30/21 06/30/21 07/01/21 22:25 22:35 07:05 MCV 83.8 MCH 27.4 MCHC 32.7 RDW 12.8 Plt Count 306 MPV 10.7 Immature Gran % (Auto) 0.2 Neut % (Auto) 88.0 H Lymph % (Auto) 11.4 L [place] % (Auto) 0.4 L Eos % (Auto) 0.0 Baso % (Auto) 0.0 Lymph # (Auto) 1.1 L [place] # (Auto) 0.0 L Eos # (Auto) 0.0 Baso # (Auto) 0.0 Abs Immat Gran (auto) 0.02 Absolute Neuts (auto) 8.3 Absolute Nucleated RBC 0.000 Nucleated RBC % (auto) 0.0 Anion Gap Estim Creat Clear Calc Estimated GFR POC Glucose 234 H Random Glucose Calcium Urine Color Urine Appearance Urine pH Ur Specific [place] Urine Protein Urine Glucose (UA) Urine Ketones Urine Blood Urine Nitrite Ur Leukocyte Esterase Urine RBC Urine WBC Ur Squamous Epith Cells Urine Bacteria COVID-19 ([facility]) Negative COVID-19 Clin Com See Note 07/01/21 07/01/21 07:05 07:42 MCV MCH MCHC RDW Plt Count MPV Immature Gran % (Auto) Neut % (Auto) Lymph % (Auto) [place] % (Auto) Eos % (Auto) Baso % (Auto) Lymph # (Auto) [place] # (Auto) Eos # (Auto) Baso # (Auto) Abs Immat Gran (auto) Absolute Neuts (auto) Absolute Nucleated RBC Nucleated RBC % (auto) Anion Gap 11 L Estim Creat Clear Calc 90.9 Estimated GFR > 60 POC Glucose 279 H Random Glucose 302 H Calcium 9.8 Urine Color Urine Appearance Urine pH Ur Specific [place] Urine Protein Urine Glucose (UA) Urine Ketones Urine Blood Urine Nitrite Ur Leukocyte Esterase Urine RBC Urine WBC Ur Squamous Epith Cells Urine Bacteria COVID-19 ([facility]) COVID-19 Clin Com Assessment and Plan (1) Kidney stones: Status: Acute (2) Sinus tachycardia: Status: Acute Plan ?51-year-old female with a past medical history of hypertension, hyperlipidemia, diabetes,? history of kidney stones presented to the hospital with a chief complaint of blood in the urine/? Flank pain/back pain.? Noted to have ureteral calculus with hydronephrosis.? Admitted for further management.? Left ureteral calculus/left hydroureteronephrosis; Dr. Michaud from urology was notified Pain control,IV fluids,NPO after midnight ? UA showed 5-9 wbc's dizzy but negative for leukocyte esterase and nitrite.? urine cultures -mixed miguel angel Microscopic hematuria -the setting of Cal[place].? no fevers or leucocytosis -will defer antibiotics for now. History of diabetes:? Insulin sliding scale. History of hypertension / hyperlipidemia:? Continue home medications asthma: stable sinus tachycardia: Probably related to pain and anxiety. ekg sinus tachy Added ativan, given dilaudid tsh normal tachycardia improivng DVT prophylaxis:? Subcu heparin Quality Stroke Does the patient have a stroke diagnosis?: No VTE Prior VTE?: No VTE Risk Level:: Medical - moderate - high VTE Device Contraindication: Treatment Not Indicated VTE Drug Contraindication: N/A - Med Ordered
[2021-07-01] MEDS: Atorvastatin Calcium 40 MG TABLET PO (09:54)
[2021-07-01] MEDS: LORazepam 0.5 MG TABLET PO (09:54)
[2021-07-01] MEDS: Cyanocobalamin (Vitamin B-12) 1,000 MCG TABLET 1000 MCG PO (09:54)
[2021-07-01] MEDS: Escitalopram Oxalate 20 MG TABLET PO (09:54)
[2021-07-01] MEDS: HYDROmorphone HCl 1 MG/ML SYRINGE 0.5 MG IVPUSH ×3 (09:57→19:39)
[2021-07-01 10:18] LABS: Thyroid Stimulating Hormone 0.42 uIU/mL (0.32-4.0)
--- NOTE | 2021-07-01 10:41 | P.CDIC_ITS ---
CDI Concurrent Query Documentation Clarification: PHYSICIAN'S DOCUMENTATION REQUEST Date of Query: 07/01/21 1042 Patient Name: Tejal Goldstein Admit Date: 06/30/21 Dear Doctor, A review of the medical record indicates additional documentation may be needed. Please review below and update the documentation accordingly. Clinical Indicators: Height: [] 5 FT Weight: [] 104.326 kg BMI: [] 44.9 Other Clinical Notes Supporting Significance of the BMI: Risk Factors/Clinical Indicators/Treatments If possible, please provide an associated diagnosis related to the abnormal BMI, such as: For a BMI >= 40: * Overweight * Obesity * Due to excess calories * Drug induced * Due to other cause * Severe or Morbid Obesity * With alveolar hypoventilation * Without alveolar hypoventilation Or: * BMI is not significant * Other (please specify) * Unable to determine Use of terms such as suspected, likely, concern for, or probable (associated with a specific diagnosis that is being evaluated, monitored, or treated as if it exists) are acceptable and can be coded in the inpatient setting, when documented at the time of discharge. Thank you, Alise Reyes RN Extension: [phone] Please use your independent medical judgment in providing your response. THIS QUERY IS PART OF THE PERMANENT MEDICAL RECORD Provider Response: Other Other Diagnosis: morbid obesity
--- NOTE | 2021-07-01 11:22 | MHC.CM.PN ---
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
[2021-07-01] MEDS: busPIRone HCl 5 MG TABLET 15 MG PO (11:49)
[2021-07-01] MEDS: Pyridoxine HCl (Vitamin B6) 50 MG TABLET 100 MG PO (11:49)
[2021-07-01] MEDS: Cholecalciferol (Vitamin D3) 10 MCG TABLET PO (11:49)
[2021-07-01] MEDS: Ascorbic Acid 500 MG TABLET PO (11:49)
[2021-07-01 13:22] LABS: Glucose, Whole Blood 170 mg/dL (60-115)
--- NOTE | 2021-07-01 15:25 | PC.NURSE ---
this leader writer assumed care of this pt at 1430. report given to Short Stay by previous nurse. pt will be picked up around 1600 and will transfer to room 462 after procedure. Nurse to nurse report given to SUSY Randolph.
[2021-07-01 17:54] LABS: Glucose, Whole Blood 154 mg/dL (60-115)
[2021-07-01] MEDS: 0.9 % Sodium Chloride Flush 3 ML SYRINGE IVFLUSH (19:40)
[2021-07-01 19:48] LABS: Glucose, Whole Blood 168 mg/dL (60-115)
--- NOTE | 2021-07-01 22:09 | MHC.SHP ---
Pre-Procedural Eval Section A Date of Service: 07/01/21 The patient is an INPATIENT: Yes Changes since office visit: No Cold of Flu in the past 2 weeks, No New Medical Problems, No Changes in Medication and No Patient answered all questions The History & Physical has been completed within 30 days and I have reviewed it.: Yes Section B Chief Complaint: Renal Stone Allergies: Allergies Allergy/AdvReac Type Severity Reaction Status Date / Time No Known Allergies Allergy Verified 06/30/21 12:23 [No Known Allergies*] Plan Diagnosis/Plan: Unchanged (left retro, ureteroscopy, laser, stent) I have reviewed the history and physical and performed a pertinent physical examination on my patient. No changes have occurred unless specified.
--- NOTE | 2021-07-01 22:35 | P.CONAN_ITS ---
[facility] Active Problems Active Problems: All Active Problems (Updated 07/01/21 @ 16:46 by Katerin Mcdaniel MD) Sinus tachycardia (Acute) Diabetes (Acute) Asthma (Acute) Hyperlipidemia (Acute) Hypertension (Acute) Kidney stones (Acute) Family History Family history of problems with anesthesia: No Surgical History History of Problems with Anesthesia: No Social History Social History Household Members: Spouse Housing: Apartment Do you presently have visiting nurse or other home services: No Patient Tobacco Use Status: Never used Tobacco Advance Directives Date on File: 07/01/21 service: No Meds Allergies Allergy/AdvReac Type Severity Reaction Status Date / Time No Known Allergies Allergy Verified 06/30/21 12:23 [No Known Allergies*] Active Medications: Current Medications Acetaminophen (Acetaminophen 325 Mg Tablet) 650 mg PO Q6H PRN PRN Reason: Pain, Mild (Pain Scale 1-3) Ascorbic Acid (Ascorbic Acid 500 Mg Tablet) 500 mg PO DAILY [facility] Last Admin: 07/01/21 11:49 Dose: 500 mg Documented by: Atorvastatin Calcium (Atorvastatin Calcium 40 Mg Tablet) 40 mg PO DAILY [facility] Last Admin: 07/01/21 09:54 Dose: 40 mg Documented by: Buspirone HCl (Buspirone Hcl 5 Mg Tablet) 15 mg PO TID [facility] Last Admin: 07/01/21 14:12 Dose: Not Given Documented by: Clonazepam (Clonazepam 1 Mg Tablet) 2 mg PO BID PRN PRN Reason: Anxiety Cyanocobalamin (Cyanocobalamin (Vitamin B-12) 1,000 Mcg Tablet) 1,000 mcg PO DAILY [facility] Last Admin: 07/01/21 09:54 Dose: 1,000 mcg Documented by: Cyclobenzaprine HCl (Cyclobenzaprine Hcl 10 Mg Tablet) 10 mg PO TID [facility] Last Admin: 07/01/21 14:13 Dose: Not Given Documented by: Dextrose (Dextrose 50 % 25 Gm/50 Ml Syringe) 25 gm IVPUSH Q15M PRN; Protocol PRN Reason: per Hypoglycemia Standing Ord. Divalproex Sodium (Divalproex Sodium Er 500 Mg Tab.Er.24h) 1,500 mg PO BEDTIME [facility] Escitalopram Oxalate (Escitalopram Oxalate 20 Mg Tablet) 20 mg PO DAILY [facility] Last Admin: 07/01/21 09:54 Dose: 20 mg Documented by: Glucose (Glucose Gel 15 Gm Gel..Gram.) 15 gm PO Q15M PRN; Protocol PRN Reason: per Hypoglycemia Standing Ord. Heparin Sodium (Porcine) (Heparin Sodium,Porcine 5,000 Unit/Ml Vial) 5,000 unit SUBCUT Q8H [facility] Last Admin: 07/01/21 14:11 Dose: Not Given Documented by: Hydromorphone HCl (Hydromorphone Hcl 1 Mg/Ml Syringe) 0.5 mg IVPUSH Q4H PRN; Protocol PRN Reason: Pain, Severe (Pain Scale 7-10) Last Admin: 07/01/21 19:39 Dose: 0.5 mg Documented by: Hydroxyzine HCl (Hydroxyzine Hcl 50 Mg Tablet) 50 mg PO TID [facility] Last Admin: 07/01/21 14:12 Dose: Not Given Documented by: Dextrose/Sodium Chloride (D5ns) 1,000 mls @ 50 mls/hr IVCONT .Q20H [facility] Last Admin: 07/01/21 03:00 Dose: 50 mls/hr Documented by: Insulin Human Lispro (Insulin Lispro 100 Unit/Ml 3 Ml Vial) 0 unit SUBCUT QIDACHS [facility]; Protocol Last Admin: 07/01/21 17:59 Dose: Not Given Documented by: Melatonin (Melatonin 3 Mg Tablet) 6 mg PO BEDTIME PRN PRN Reason: Insomnia Montelukast Sodium (Montelukast Sodium 10 Mg Tablet) 10 mg PO BEDTIME [facility] Non-Formulary Medication (Eszopiclone) 1 tab PO BEDTIME [facility] Non-Formulary Medication (Ramelteon) 2 tab PO BEDTIME [facility] Pharmacy Consult (Consult Rx Perform Med Rec) 1 each MISCELLANE ONCE PRN PRN Reason: Consult order Prazosin HCl (Prazosin Hcl 1 Mg Capsule) 4 mg PO BEDTIME [facility]; Protocol Pyridoxine HCl (Pyridoxine Hcl (Vitamin B6) 50 Mg Tablet) 100 mg PO DAILY [facility] Last Admin: 07/01/21 11:49 Dose: 100 mg Documented by: Quetiapine Fumarate (Quetiapine Fumarate 400 Mg Tablet) 800 mg PO BEDTIME [facility] Senna (Sennosides 8.6 Mg Tablet) 17.2 mg PO BEDTIME PRN PRN Reason: Constipation Sodium Chloride (0.9 % Sodium Chloride Flush 3 Ml Syringe) 3 ml IVFLUSH QSHIFT [facility] Last Admin: 07/01/21 19:40 Dose: 3 ml Documented by: Temazepam (Temazepam 15 Mg Capsule) 15 mg PO BEDTIME PRN PRN Reason: Insomnia Topiramate (Topiramate 100 Mg Tablet) 200 mg PO BEDTIME [facility] Vitamin D (Cholecalciferol (Vitamin D3) 10 Mcg Tablet) 10 mcg PO DAILY [facility] Last Admin: 07/01/21 11:49 Dose: 10 mcg Documented by: Vitamin E (Vitamin E (Dl,Tocopheryl Acet) 180 Mg (400 Unit) Capsule) 180 mg PO DAILY [facility] Home Medications Medication Instructions Recorded Confirmed Last Taken Type ascorbic acid (vitamin C) 500 mg 500 mg PO DAILY 07/01/21 07/01/21 Unknown History tablet atorvastatin 40 mg tablet 1 tab DAILY 07/01/21 07/01/21 Unknown History buspirone 15 mg tablet 1 tab PO TID 07/01/21 07/01/21 Unknown History cholecalciferol (vitamin D3) 10 10 mcg PO DAILY 07/01/21 07/01/21 Unknown History mcg (400 unit) tablet clonazepam 2 mg tablet 1 tab PO BID PRN 07/01/21 07/01/21 Unknown History cyanocobalamin (vitamin B-12) 1,000 mcg PO DAILY 07/01/21 07/01/21 Unknown History 1,000 mcg tablet cyclobenzaprine 10 mg tablet 1 tab PO TID 07/01/21 07/01/21 Unknown History divalproex 500 mg tablet,extended 3 tab PO BEDTIME 07/01/21 07/01/21 Unknown History release 24 hr escitalopram oxalate 20 mg tablet 1 tab QAM 07/01/21 07/01/21 Unknown History eszopiclone 3 mg tablet 1 tab BEDTIME 07/01/21 07/01/21 Unknown History hydroxyzine pamoate 50 mg capsule 1 cap PO TID 07/01/21 07/01/21 Unknown History ibuprofen 600 mg tablet 1 tab PO TID 07/01/21 07/01/21 Unknown History lisinopril 5 mg tablet 1 tab PO DAILY 07/01/21 07/01/21 Unknown History montelukast 10 mg tablet 1 tab BEDTIME 07/01/21 07/01/21 Unknown History omega-3 fatty acids-vitamin E 1 cap PO DAILY 07/01/21 07/01/21 Unknown History 1,000 mg capsule prazosin 2 mg capsule 2 cap PO BEDTIME 07/01/21 07/01/21 Unknown History pyridoxine (vitamin B6) 100 mg 1 tab DAILY 07/01/21 07/01/21 Unknown History tablet quetiapine 400 mg tablet 2 tab PO BEDTIME 07/01/21 07/01/21 Unknown History ramelteon 8 mg tablet 2 tab PO BEDTIME 07/01/21 07/01/21 Unknown History topiramate 200 mg tablet 1 tab BEDTIME 07/01/21 07/01/21 Unknown History vitamin E 400 unit capsule 400 unit PO DAILY 07/01/21 07/01/21 Unknown History Exam Exam Date and Time: July 01, [id number] Height,Weight and Vital Signs: Height 5 ft Weight 109.9 kg Last Vital Signs Temp 100.1 F 07/01/21 21:51 Pulse 82 07/01/21 21:51 Resp 18 07/01/21 21:51 BP 145/86 H 07/01/21 21:51 Pulse Ox 94 07/01/21 21:51 Pertinent Lab Results Pertinent Lab Results: Laboratory Tests 06/30/21 06/30/21 06/30/21 12:36 12:36 12:36 WBC 13.6 H RBC 4.87 Hgb 13.4 Hct 41.4 MCV 85.0 MCH 27.5 MCHC 32.4 RDW 12.9 Plt Count 320 MPV 10.3 Immature Gran % (Auto) 0.3 Neut % (Auto) 74.8 H Lymph % (Auto) 18.2 L Mcdonough % (Auto) 5.4 Eos % (Auto) 1.0 Baso % (Auto) 0.3 Lymph # (Auto) 2.5 Mcdonough # (Auto) 0.7 Eos # (Auto) 0.1 Baso # (Auto) 0.0 Abs Immat Gran (auto) 0.04 H Absolute Neuts (auto) 10.2 H Absolute Nucleated RBC 0.000 Nucleated RBC % (auto) 0.0 Sodium 139 Potassium 4.2 Chloride 105 Carbon Dioxide 27 Anion Gap 11 L BUN 15 Creatinine 0.84 Estim Creat Clear Calc 84.3 Estimated GFR > 60 POC Glucose Random Glucose 183 H Calcium 9.7 TSH Urine Color YELLOW Urine Appearance CLEAR Urine pH 6.0 Ur Specific Leeper >= 1.030 H Urine Protein 1+ H Urine Glucose (UA) NEG Urine Ketones NEG Urine Blood 3+ H Urine Nitrite NEG Ur Leukocyte Esterase NEG Urine RBC 50-75 H Urine WBC 5-9 H Ur Squamous Epith Cells 2+ Urine Bacteria NONE COVID-19 ([facility]) COVID-19 Clin Com 06/30/21 06/30/21 07/01/21 22:25 22:35 07:05 WBC 9.5 RBC 4.89 Hgb 13.4 Hct 41.0 MCV 83.8 MCH 27.4 MCHC 32.7 RDW 12.8 Plt Count 306 MPV 10.7 Immature Gran % (Auto) 0.2 Neut % (Auto) 88.0 H Lymph % (Auto) 11.4 L Mcdonough % (Auto) 0.4 L Eos % (Auto) 0.0 Baso % (Auto) 0.0 Lymph # (Auto) 1.1 L Mcdonough # (Auto) 0.0 L Eos # (Auto) 0.0 Baso # (Auto) 0.0 Abs Immat Gran (auto) 0.02 Absolute Neuts (auto) 8.3 Absolute Nucleated RBC 0.000 Nucleated RBC % (auto) 0.0 Sodium Potassium Chloride Carbon Dioxide Anion Gap BUN Creatinine Estim Creat Clear Calc Estimated GFR POC Glucose 234 H Random Glucose Calcium TSH Urine Color Urine Appearance Urine pH Ur Specific Leeper Urine Protein Urine Glucose (UA) Urine Ketones Urine Blood Urine Nitrite Ur Leukocyte Esterase Urine RBC Urine WBC Ur Squamous Epith Cells Urine Bacteria COVID-19 ([facility]) Negative COVID-19 Clin Com See Note 07/01/21 07/01/21 07/01/21 07:05 07:42 13:18 WBC RBC Hgb Hct MCV MCH MCHC RDW Plt Count MPV Immature Gran % (Auto) Neut % (Auto) Lymph % (Auto) Mcdonough % (Auto) Eos % (Auto) Baso % (Auto) Lymph # (Auto) Mcdonough # (Auto) Eos # (Auto) Baso # (Auto) Abs Immat Gran (auto) Absolute Neuts (auto) Absolute Nucleated RBC Nucleated RBC % (auto) Sodium 136 Potassium 4.7 Chloride 107 Carbon Dioxide 23 Anion Gap 11 L BUN 12 Creatinine 0.78 Estim Creat Clear Calc 90.9 Estimated GFR > 60 POC Glucose 279 H 170 H Random Glucose 302 H Calcium 9.8 TSH 0.42 Urine Color Urine Appearance Urine pH Ur Specific Lee[place] Urine Protein Urine Glucose (UA) Urine Ketones Urine Blood Urine Nitrite Ur Leukocyte Esterase Urine RBC Urine WBC Ur Squamous Epith Cells Urine Bacteria COVID-19 ([facility]) COVID-19 Clin Com 07/01/21 07/01/21 17:47 19:43 WBC RBC Hgb Hct MCV MCH MCHC RDW Plt Count MPV Immature Gran % (Auto) Neut % (Auto) Lymph % (Auto) Mcdonough % (Auto) Eos % (Auto) Baso % (Auto) Lymph # (Auto) Mcdonough # (Auto) Eos # (Auto) Baso # (Auto) Abs Immat Gran (auto) Absolute Neuts (auto) Absolute Nucleated RBC Nucleated RBC % (auto) Sodium Potassium Chloride Carbon Dioxide Anion Gap BUN Creatinine Estim Creat Clear Calc Estimated GFR POC Glucose 154 H 168 H Random Glucose Calcium TSH Urine Color Urine Appearance Urine pH Ur Specific Lee[place] Urine Protein Urine Glucose (UA) Urine Ketones Urine Blood Urine Nitrite Ur Leukocyte Esterase Urine RBC Urine WBC Ur Squamous Epith Cells Urine Bacteria COVID-19 ([facility]) COVID-19 Clin Com Airway Mallampati Class: III TM Dist: >3cm Neck ROM: Full Assessment and Plan Assessment Anesthesia Assessment: Anesthesia Plan Discussed and Chart Reviewed Final Anesthetic Review Family History of Problems with Anesthesia: No History of Problems with Anesthesia: No ASA Class: III and Emergency Final Preanesthetic Review: No Changes in Pt Med Stat, Meds/Allgs Chart Reviewed, Consent Obtained/Reviewed and Anes Risks/Benef Reviewed Patient Risk: Intermediate Procedure Risk: Low Anesthetic Plan Anesthetic Plan: GA Disposition: Standard PACU
--- NOTE | 2021-07-01 23:08 | W.PM.OPN ---
Operative Note Operative Note Date of Service: 07/01/21 Narrative: PreOperative Diagnosis: left ureteric stone Post Operative Diagnosis: left ureteric tone Procedure: - cystoscopy, left retrograde - left dilatation of ureteric orifice under fluoroscopy - left ureteroscopy, laser lithotripsy, stone basketing - left stent placement Surgeon: Dr Abner Michaud Anesthesia: General Indications for procedure: left ureteric stone setting of diabetes with elevated WBC responding to IV antibiotics Procedure: After informed consent was verified patient was brought to the operating placed in supine position. Anesthesia was administered per protocol. Patient was placed in modified dorsal lithotomy position and prepped and draped in a sterile fashion. Safety pause time-out and side of surgery confirmed. Antibiotics confirmed. A 22 [place] cystoscope was inserted per urethra. Bladder was normal in its entirety. Both ureteric orifices were in normal position. The left ureteric orifice was cannulated and a retrograde examination was performed. filling defects seen in junction between mid and distal 3rd of ureter . A Sensor guidewire was placed up to the level of the renal pelvis under fluoroscopy. The rigid cystoscope was removed. A [place] dilator was placed over the Sensor guidewire and used to dilate the ureteric orifice under fluoroscopy. The dilator was removed. The semi rigid ureteral scope was placed alongside the Sensor guidewire. stone was encountered and using a 365 micron laser fiber was broken into small pieces. A Zero tip 2.7 [place] basket was used to remove fragments with multiple passes. A 6 [place] by Twenty 4 cm double-J stent was placed into the renal pelvis and bladder under a combination of fluoroscopy and direct visualization. The bladder was emptied. The patient tolerated the procedure well and was extubated in the operating room, and transferred in stable condition to the recovery area. Pathology: stone Drains: 6 [place] by 24 cm double-J stent
[2021-07-01] MEDS: Phenazopyridine HCL 100 MG TABLET PO (23:20)
[2021-07-01 23:54] LABS: Glucose, Whole Blood 168 mg/dL (60-115)
[2021-07-02] VITALS: BP 127/58; PULSE 81; RESP 16; TEMP 36.9; O2SAT 96
[2021-07-02] MEDS: Insulin Lispro 100 UNIT/ML 3 ML VIAL SUBCUT ×3 (00:01→12:51)
[2021-07-02] MEDS: oxyCODONE HCl Immed Release 5 MG TABLET PO (00:02)
[2021-07-02] MEDS: Divalproex Sodium ER 500 MG TAB.ER.24H 1500 MG PO (01:15)
[2021-07-02] MEDS: Topiramate 100 MG TABLET 200 MG PO (01:15)
[2021-07-02] MEDS: 0.9 % Sodium Chloride Flush 3 ML SYRINGE IVFLUSH ×3 (01:15→08:00)
[2021-07-02 03:24] VITALS: BP 142/67; PULSE 90; RESP 18; TEMP 36.8; O2SAT 95
[2021-07-02] MEDS: HYDROmorphone HCl 1 MG/ML SYRINGE 0.5 MG IVPUSH ×2 (03:26→07:58)
[2021-07-02] MEDS: Heparin Sodium,Porcine 5,000 UNIT/ML VIAL 5000 UNIT SUBCUT (06:33)
[2021-07-02 07:29] VITALS: BP 138/76; PULSE 85; RESP 17; TEMP 36.7; O2SAT 97
[2021-07-02] MEDS: Pyridoxine HCl (Vitamin B6) 50 MG TABLET 100 MG PO (07:59)
[2021-07-02] MEDS: Atorvastatin Calcium 40 MG TABLET PO (07:59)
[2021-07-02] MEDS: busPIRone HCl 5 MG TABLET 15 MG PO (07:59)
[2021-07-02] MEDS: Vitamin E (Dl,Tocopheryl Acet) 180 MG (400 UNIT) CAPSULE PO (07:59)
[2021-07-02] MEDS: hydrOXYzine HCL 50 MG TABLET PO (07:59)
[2021-07-02 08:00] LABS: Glucose, Whole Blood 169 mg/dL (60-115)
[2021-07-02] MEDS: Cyanocobalamin (Vitamin B-12) 1,000 MCG TABLET 1000 MCG PO (08:00)
[2021-07-02] MEDS: Cyclobenzaprine HCl 10 MG TABLET PO (08:00)
[2021-07-02] MEDS: Ascorbic Acid 500 MG TABLET PO (08:00)
[2021-07-02] MEDS: Cholecalciferol (Vitamin D3) 10 MCG TABLET PO (08:00)
[2021-07-02] MEDS: Escitalopram Oxalate 20 MG TABLET PO (08:00)
[2021-07-02] MEDS: Dextrose 5 % and 0.9 % NaCl 1,000 ML 50 ML IVCONT (08:13)
--- NOTE | 2021-07-02 09:25 | PM.DS ---
DS: Providers Provider Date of Service: 07/02/21 Date of admission: 06/30/21 22:25 Primary care physician: Unknown Physician Consults: 07/01/21 06:39 Consult to Urology Routine Consulting Provider: Abner Michaud Reason for consultation: renal calculus DS: Diagnosis Discharge Diagnosis (1) Kidney stones: Status: Acute (2) Sinus tachycardia: Status: Acute DS: Summary Hospital Course Hospital Course: 51-year-old female with a past medical history of hypertension, hyperlipidemia, diabetes,? history of kidney stones presented to the hospital with a chief complaint of blood in the urine.? Patient reported she went to PCP's office for routine blood work noted to have blood in the urine;? when asked patient complained of low back pains his flank pain/ low back pain for the past 2 days.? Denies any associated fevers.? Denies any burning or frequency.? Denies any lower abdominal pain.? Patient denies any numbness tingling or focal weakness.? Denies any chest pain or palpitations. Hospital course: Patient came with left-sided flank pain-probably related to renal stone-seen by Urology and cystoscopy, left ureteroscopy, laser lithotripsy and stone basketing done along with left sided stent placement. Patient pain is improved and going home with pain medication. Urology added antibiotic for possible UTI. Above management discussed with the patient in detail length she understand and in agreement with the above plan, time spent 50 minutes and 50% time spent on counseling. Significant findings: As above. Procedures performed: None. Treatment and response: As above. Complications: None. Time Spent with Patient Time attestation: Total time spent providing and/or coordinating discharge services: Discharge coordination time: Greater than 30 minutes Quality: Safe Use of Opioids Does Pt have an Active Cancer Diagnosis on the Problem List?: No Quality: Stroke Does the patient have a stroke diagnosis?: No Physical Exam Vital Signs: Vital Signs: Last Vital Signs Temp 98.1 F 07/02/21 07:29 Pulse 85 07/02/21 07:29 Resp 17 07/02/21 07:29 BP 138/76 07/02/21 07:29 Pulse Ox 97 07/02/21 07:29 BMI result Body Mass Index 47.3 Appearance: Alert.? Oriented X3.? cvs: rrr, [id number] , no murmur res: clear to auscultation ,no rhonchii or wheezing abd: no rebound or guarding ,left flank pain improved , bs present. ext pulses present , no cyanosis. neuro: axo3 , nonfocal. DS: Data Data Completed and Pending Pending studies at discharge: Pending at discharge 07/01/21 23:26 Surgical [PTH] Routine Labs on day of discharge: Laboratory Results - last 24 hr 07/01/21 07/01/21 07/01/21 07:05 13:18 17:47 POC Glucose 170 H 154 H TSH 0.42 07/01/21 07/01/21 07/02/21 19:43 23:50 07:56 POC Glucose 168 H 168 H 169 H TSH Additional Comments Additional comments: CT/CT abdomen pelvis wo con IMPRESSION: Left-sided hydronephrosis and hydroureter extending up to an 8 mm calcification in the mid left ureter at the level of the pelvic brim. Nonobstructive intrarenal calculi seen in the contralateral right kidney.. Discharge Plan Discharge Patient Disposition: Home, Self-Care Discharge Diagnosis: Renal stone. Referrals: Abner Michaud MD [Physician] - 1 Week (follow up outpatiently) PhysicianElia [Primary Care Provider] - 1 Week Discharge Medications: New phenazopyridine [Pyridium] 100 mg tablet 100 mg PO TID PRN (Reason: spasm) 4 Days Qty: 12 0RF sulfamethoxazole-trimethoprim [Bactrim DS] 800-160 mg tablet 1 tab PO BID 3 Days Qty: 6 0RF tramadol 50 mg tablet 50 mg PO Q6H PRN (Reason: pain (scale score 1-3)) Qty: 8 0RF tamsulosin 0.4 mg capsule 0.4 mg PO BEDTIME 14 Days Qty: 14 0RF Continued cyclobenzaprine 10 mg tablet 1 tab PO TID 0RF atorvastatin 40 mg tablet 1 tab DAILY 0RF hydroxyzine pamoate 50 mg capsule 1 cap PO TID 0RF divalproex 500 mg tablet extended release 24 hr 3 tab PO BEDTIME 0RF clonazepam 2 mg tablet 1 tab PO BID PRN (Reason: Anxiety) 0RF montelukast 10 mg tablet 1 tab BEDTIME 0RF topiramate 200 mg tablet 1 tab BEDTIME 0RF lisinopril 5 mg tablet 1 tab PO DAILY 0RF pyridoxine (vitamin B6) 100 mg tablet 1 tab DAILY 0RF ibuprofen 600 mg tablet 1 tab PO TID 0RF prazosin 2 mg capsule 2 cap PO BEDTIME 0RF buspirone 15 mg tablet 1 tab PO TID 0RF escitalopram oxalate 20 mg tablet 1 tab QAM 0RF eszopiclone 3 mg tablet 1 tab BEDTIME 0RF ramelteon 8 mg tablet 2 tab PO BEDTIME 0RF quetiapine 400 mg tablet 2 tab PO BEDTIME 0RF cyanocobalamin (vitamin B-12) 1,000 mcg Tablet 1,000 mcg PO DAILY 0RF ascorbic acid (vitamin C) 500 mg Tablet 500 mg PO DAILY 0RF cholecalciferol (vitamin D3) 10 mcg (400 unit) Tablet 10 mcg PO DAILY 0RF vitamin E 400 unit Capsule 400 unit PO DAILY 0RF omega-3 fatty acids-vitamin E 1,000 mg Capsule 1 cap PO DAILY 0RF Discharge Orders: Discharge Order (Routine); Ordered 07/02/21 Ordered By: Katerin Mcdaniel Diet: advance to usual diet Activity on Discharge: As tolerated Stand Alone Forms: Patient Portal Discharge page Care Plan Goals: Patient came with left-sided flank pain-probably related to renal stone-seen by Urology and cystoscopy, left ureteroscopy, laser lithotripsy and stone basketing done along with left sided stent placement. Patient pain is improved and going home. Health Concerns: As above. Plan of Treatment: As above. Assessment: As above.
[2021-07-02 10:59] LABS: Glucose, Whole Blood 270 mg/dL (60-115)
[2021-07-02 11:13] VITALS: BP 139/72; PULSE 98; RESP 18; TEMP 36.9; O2SAT 93
[2021-07-02 11:15] LABS: Anion Gap 13 (12-20); Blood Urea Nitrogen 15 mg/dL (9-16); Calcium 9.5 mg/dL (8.4-10.2); Carbon Dioxide 22 mmol/L (22-29); Chloride 107 mmol/L (96-108); Creatinine Clr Calc Pharmacy 84.1; Estimated Glomerular Filt Rate > 60; Glucose Random 263 mg/dL (60-115); Potassium 4.3 mmol/L (3.3-5.1); Sodium 138 mmol/L (135-145)
--- NOTE | 2021-07-02 11:40 | MHC.CM.PN ---
Patient has been medically cleared for dc to home today, self care. Last IMM addressed yesterday.
--- NOTE | 2021-07-02 14:09 | HO.POSTANES ---
Post Anesthesia Evaluation Post Anesthesia Evaluation Vital Signs: Vital Signs Temp Pulse Resp BP Pulse Ox 07/02/21 11:13 98.4 F 98 18 139/72 93 07/02/21 07:29 98.1 F 85 17 138/76 97 07/02/21 03:24 98.3 F 90 18 142/67 H 95 Anesthesia: General Mental Status: Awake Pain Control: Satisfactory Nausea/Vomiting: None Hydration: Adequate Anesthesia-Related Issues: No Anes. Related Issues Comments: Patient seen at 630am this morning
[2021-07-05 22:52] LABS: Stone Source URETERAL STONE
== END 2021-07-02 15:57 | disposition home or self-care (01) | DRG 660 ==
LOC: HO.ED 22:28 → HO.EDOVER 22:31 → HO.IMC 07-01 14:04
PROVIDERS: Physician Assistant Medical; Urology; Admitting Provider Hospitalist; Emergency Provider Internal Medicine; Visit Provider Internal Medicine
PROC: 0T778DZ Dilation of Left Ureter with Intraluminal Device, Via Natural or Artificial Opening Endoscopic (ICD-10-PCS; principal; 2021-07-01 17:10)
DX: N13.6 Pyonephrosis (principal); Z68.42 Body mass index [BMI] 45.0-49.9, adult; E78.5 Hyperlipidemia, unspecified; R00.0 Tachycardia, unspecified; F41.9 Anxiety disorder, unspecified; E66.01 Morbid (severe) obesity due to excess calories; I10 Essential (primary) hypertension; E11.9 Type 2 diabetes mellitus without complications; R31.29 Other microscopic hematuria; Z20.822 Contact with and (suspected) exposure to COVID-19; Z87.442 Personal history of urinary calculi; Z79.899 Other long term (current) drug therapy
CPT/HCPCS: 36415; 74176; 80048; 81001; 82365; 82947; 84443; 85025; 87086; 87635; 88300; 93005; 96361; 96372; 96374; 99285; 99291; C1758; C1769; C2617; J1100; J1170; J1885; J1956; J2250; J2270; J2405; J2930; J3010; Q9967

== ENCOUNTER → 2021-07-15 14:42 | Outpatient (BNVA) | payer OTHER, SELFPAY | PROVIDERS: PCP Internal Medicine; Visit Provider Urology | DX: N20.0 Calculus of kidney (principal) | CPT/HCPCS: 52310; 99212 ==

== ENCOUNTER → 2021-08-20 08:48 | Outpatient (BNVA) | payer OTHER, SELFPAY | PROVIDERS: PCP Internal Medicine; Visit Provider Nurse Practitioner Family | DX: M47.816 Spondylosis without myelopathy or radiculopathy, lumbar region (principal); M25.552 Pain in left hip; M53.3 Sacrococcygeal disorders, not elsewhere classified; M62.838 Other muscle spasm | CPT/HCPCS: 99202 ==

== ENCOUNTER 2021-09-02 15:30 | Outpatient (REF) | payer OTHER, SELFPAY ==
--- NOTE | ~2021-09-02 | US_ITS ---
EXAMINATION: US RETROPERITONEAL LIMITED (RENAL ONLY) CLINICAL INFORMATION: Calculus of kidney. COMPARISON: CT abdomen and pelvis 06/30/2021. TECHNIQUE: Real-time imaging of the kidneys. Technically difficult study secondary to body habitus. FINDINGS: RIGHT KIDNEY: 14.0 x 5.3 x 6.4 cm (SAG x AP x TRV). The kidney is normal in size, contour, and echogenicity. Renal cortical thickness is normal. No focal parenchymal lesions or hydronephrosis. Two 1 cm nonobstructing lower pole renal stones which appear to correspond to the stone clusters on prior CT. LEFT KIDNEY: 12.3 x 5.1 x 5.8 cm (SAG x AP x TRV). The kidney is normal in size, contour, and echogenicity. Renal cortical thickness is normal. No calculi or focal parenchymal lesions. No hydronephrosis. US/US renal BI IMPRESSION: Resolution of previously seen left hydronephrosis. Two 1 cm nonobstructing lower pole renal stones which appear to correspond to the stone clusters on prior CT.
== END 2021-09-02 15:31 | disposition home or self-care (01) ==
LOC: HO.US 15:30
PROVIDERS: Visit Provider Urology
DX: N20.0 Calculus of kidney (principal)
CPT/HCPCS: 76775

== ENCOUNTER → 2021-09-12 08:20 | Outpatient (BNVA) | payer OTHER, SELFPAY | PROVIDERS: PCP Internal Medicine; Visit Provider Urology | DX: N20.0 Calculus of kidney (principal) | CPT/HCPCS: Q3014 ==

== ENCOUNTER → 2021-09-17 07:50 | Outpatient (BNVA) | payer OTHER, SELFPAY | PROVIDERS: PCP Internal Medicine; Referring Provider Internal Medicine; Visit Provider Physician Assistant Surgical | DX: E66.01 Morbid (severe) obesity due to excess calories (principal); Z71.3 Dietary counseling and surveillance; Z79.899 Other long term (current) drug therapy; Z68.42 Body mass index [BMI] 45.0-49.9, adult | CPT/HCPCS: 99202; 99211; 99212 ==

== ENCOUNTER 2021-09-17 16:55 | Outpatient (REF) | payer OTHER, SELFPAY ==
[2021-09-18 13:15] LABS: H Pylori Breath Test Negative (Negative)
== END 2021-09-17 16:56 | disposition home or self-care (01) ==
LOC: HO.LNP 16:55
PROVIDERS: Visit Provider Physician Assistant Surgical
DX: E66.01 Morbid (severe) obesity due to excess calories (principal)
CPT/HCPCS: 83013

== ENCOUNTER 2021-10-01 07:06 | Day surgery (SDC) | payer OTHER, SELFPAY ==
--- NOTE | 2021-09-30 10:49 | HO.ANESPROP2 ---
Documented by User: Stephany Olivarez NP 09/30/21 10:52 HPI - Anesthesia Eval Consult details Narrative: 51yo F for Right ESWL s/p cysto, etc 06/2021 with GA-LMA 4 No previous ESWL on record. PMFSH Active Problems Active Problems: All Active Problems (Updated 09/17/21 @ 08:45 by NINFA Martinez) Morbid obesity (Acute) Muscle spasm (Acute) Sacroiliac joint pain (Acute) Left hip pain (Acute) Spondylosis of lumbar spine (Acute) Sinus tachycardia (Acute) Diabetes (Acute) Asthma (Acute) Hyperlipidemia (Acute) Hypertension (Acute) Kidney stones (Acute) Past Medical History Medical History (Updated 09/30/21 @ 10:52 by Stephany Olivarez NP) Asthma Diabetes Hyperlipidemia Hypertension Kidney stones Morbid obesity Family History Family History Mother Asthma Diabetes Hypertension Breast cancer Hypercholesteremia Hypothyroid Father Diabetes Hypercholesteremia Hypertension Heart abnormality Gangrene associated with diabetes mellitus FHx: cancer of prostate Sister Hypothyroid Diabetes Anemia Family history of problems with anesthesia: No Surgical History Surgical History Hx of section Hx of colonoscopy History of Problems with Anesthesia: No Social History Social History Household Members: Spouse Housing: Apartment Do you presently have visiting nurse or other home services: No Alcohol intake: never Patient Tobacco Use Status: Never used Tobacco Use of substances other than those prescribed or required for medical reasons: No Are you DNR?: No Advance Directives: Yes Advance Directives on File: Yes Advance Directives Date on File: 07/01/21 service: No Meds Allergies Allergy/AdvReac Type Severity Reaction Status Date / Time No Known Allergies Allergy Verified 09/17/21 08:20 [No Known Allergies*] Home Medications Medication Instructions Recorded Confirmed Last Taken Type ascorbic acid (vitamin C) 500 mg 500 mg PO DAILY 07/01/21 09/17/21 Unknown History tablet atorvastatin 40 mg tablet 1 tab DAILY 07/01/21 09/17/21 Unknown History buspirone 15 mg tablet 1 tab PO TID 07/01/21 09/17/21 Unknown History clonazepam 2 mg tablet 1 tab PO BID PRN Anxiety 07/01/21 09/17/21 Unknown History escitalopram oxalate 20 mg tablet 1 tab QAM 07/01/21 09/17/21 Unknown History eszopiclone 3 mg tablet 1 tab BEDTIME 07/01/21 09/17/21 Unknown History hydroxyzine pamoate 50 mg capsule 1 cap PO TID 07/01/21 09/17/21 Unknown History ibuprofen 600 mg tablet 1 tab PO TID 07/01/21 09/17/21 Unknown History montelukast 10 mg tablet 1 tab BEDTIME 07/01/21 09/17/21 Unknown History prazosin 2 mg capsule 2 cap PO BEDTIME 07/01/21 09/17/21 Unknown History quetiapine 400 mg tablet 2 tab PO BEDTIME 07/01/21 09/17/21 Unknown History topiramate 200 mg tablet 1 tab BEDTIME 07/01/21 09/17/21 Unknown History blood sugar diagnostic (FreeStyle #10 ea 07/15/21 09/17/21 Unknown History Lite Strips) lisinopril 2.5 mg tablet 5 mg PO DAILY 09/09/21 09/09/21 Unknown History glipizide 2.5 mg tablet, extended 2.5 mg PO DAILY 09/11/21 09/17/21 Unknown History release 24 hr Exam Exam Date and Time: September 30, 2021 1049 Pertinent Lab Results Pertinent Lab Results: Laboratory Tests 07/01/21 07/02/21 07:05 10:33 WBC 9.5 Hgb 13.4 Hct 41.0 Plt Count 306 Sodium 138 Potassium 4.3 Chloride 107 Carbon Dioxide 22 BUN 15 Creatinine 0.87 Narrative Narrative: EKG 06/2021 (in ED with renal stone) Vent. Rate : 133 BPM ? ? Atrial Rate : 133 BPM ?? P-R Int : 150 ms? QRS Dur : 076 ms ? ? QT Int : 288 ms ? ? ? P-R-T Axes : 040 031 022 degrees ?? QTc Int : 428 ms ? Sinus tachycardia Otherwise normal ECG When compared with ECG of 18-FEB-2018 19:58, Vent. rate has increased BY? 49 BPM Assessment and Plan Assessment Anesthesia Assessment: Chart Reviewed Final Anesthetic Review Family History of Problems with Anesthesia: No History of Problems with Anesthesia: No Documented by User: Ankur Magdaleno MD 10/01/21 08:40 PMFSH Past Medical History Medical History (Updated 09/30/21 @ 10:52 by Stephany Olivarez NP) Asthma Diabetes Hyperlipidemia Hypertension Kidney stones Morbid obesity Family History Family History Mother Asthma Diabetes Hypertension Breast cancer Hypercholesteremia Hypothyroid Father Diabetes Hypercholesteremia Hypertension Heart abnormality Gangrene associated with diabetes mellitus FHx: cancer of prostate Sister Hypothyroid Diabetes Anemia Family history of problems with anesthesia: No Surgical History Surgical History Hx of section Hx of colonoscopy History of Problems with Anesthesia: No Social History Social History Household Members: Spouse Housing: Apartment Do you presently have visiting nurse or other home services: No Alcohol intake: never Patient Tobacco Use Status: Never used Tobacco Use of substances other than those prescribed or required for medical reasons: No Are you DNR?: No Advance Directives: Yes Advance Directives on File: Yes Advance Directives Date on File: 07/01/21 service: No Meds Allergies Allergy/AdvReac Type Severity Reaction Status Date / Time No Known Allergies Allergy Verified 09/17/21 08:20 [No Known Allergies*] Home Medications Medication Instructions Recorded Confirmed Last Taken Type ascorbic acid (vitamin C) 500 mg 500 mg PO DAILY 07/01/21 09/17/21 Unknown History tablet atorvastatin 40 mg tablet 1 tab DAILY 07/01/21 09/17/21 Unknown History buspirone 15 mg tablet 1 tab PO TID 07/01/21 09/17/21 Unknown History clonazepam 2 mg tablet 1 tab PO BID PRN Anxiety 07/01/21 09/17/21 Unknown History escitalopram oxalate 20 mg tablet 1 tab QAM 07/01/21 09/17/21 Unknown History eszopiclone 3 mg tablet 1 tab BEDTIME 07/01/21 09/17/21 Unknown History hydroxyzine pamoate 50 mg capsule 1 cap PO TID 07/01/21 09/17/21 Unknown History ibuprofen 600 mg tablet 1 tab PO TID 07/01/21 09/17/21 Unknown History montelukast 10 mg tablet 1 tab BEDTIME 07/01/21 09/17/21 Unknown History prazosin 2 mg capsule 2 cap PO BEDTIME 07/01/21 09/17/21 Unknown History quetiapine 400 mg tablet 2 tab PO BEDTIME 07/01/21 09/17/21 Unknown History topiramate 200 mg tablet 1 tab BEDTIME 07/01/21 09/17/21 Unknown History blood sugar diagnostic (FreeStyle #10 ea 07/15/21 09/17/21 Unknown History Lite Strips) lisinopril 2.5 mg tablet 5 mg PO DAILY 09/09/21 09/09/21 Unknown History glipizide 2.5 mg tablet, extended 2.5 mg PO DAILY 09/11/21 09/17/21 Unknown History release 24 hr Exam Airway Mallampati Class: III TM Dist: <=3cm Neck ROM: Full Loose/Missing/Broken Teeth: No Heart: ok Lungs: ok Assessment and Plan Final Anesthetic Review Family History of Problems with Anesthesia: No History of Problems with Anesthesia: No NPO: Yes ASA Class: III Final Preanesthetic Review: No Changes in Pt Med Stat, Meds/Allgs Chart Reviewed, Consent Obtained/Reviewed and Anes Risks/Benef Reviewed Patient Risk: High Procedure Risk: Low Anesthetic Plan Anesthetic Plan: GA and Agree w/ Assess. and Plan Disposition: Standard PACU
--- NOTE | ~2021-10-01 | XR_ITS ---
EXAMINATION: XR ABDOMEN KUB CLINICAL INDICATION: Stones. COMPARISON: None TECHNIQUE: AP view of the abdomen. FINDINGS: There are surgical cindy in the right upper quadrant. Scattered stool is seen in the right colon. No organomegaly. No gross bony abnormality. XR/XR KUB IMPRESSION: Mild constipation.
[2021-10-01 07:39] VITALS: BP 150/83; PULSE 90; RESP 18; TEMP 36.9; O2SAT 96; BMI 45.7
[2021-10-01 07:46] LABS: Glucose, Whole Blood 145 mg/dL (60-115)
[2021-10-01] MEDS: Lactated Ringers 1,000 ML 100 ML IVCONT (07:58)
[2021-10-01] MEDS: Acetaminophen 325 MG TABLET 650 MG PO (08:09)
--- NOTE | 2021-10-01 08:12 | MHC.SHP ---
Pre-Procedural Eval Section A Date of Service: 10/01/21 The patient is an INPATIENT: No Changes since office visit: No Cold of Flu in the past 2 weeks, No New Medical Problems, No Changes in Medication and No Patient answered all questions The History & Physical has been completed within 30 days and I have reviewed it.: Yes Section B Chief Complaint: kidney stone Details of Present Illness: right 10mm lower pole stones Allergies: Allergies Allergy/AdvReac Type Severity Reaction Status Date / Time No Known Allergies Allergy Verified 09/17/21 08:20 [No Known Allergies*] Plan Diagnosis/Plan: Unchanged I have reviewed the history and physical and performed a pertinent physical examination on my patient. No changes have occurred unless specified.
--- NOTE | 2021-10-01 09:02 | P.OP_ITS ---
Operative Note Operative Note Date of Service: 10/01/21 Narrative: PreOperative Diagnosis: Right Renal stones Post Operative Diagnosis: Right Renal stones Procedure: Right ESWL Surgeon: Dr Abner Michaud Anesthesia: mac/sedation Indications for procedure: The patient understands ESWL may be a staged procedure and subsequent intervention may be required based on imaging after ESWL. They also understand there is a risk of bleeding to the kidney, infection, damage to adjacent organs, and stone migration following the procedure. - Imaging right lower pole 10 mm x2 Procedure: After informed consent was verified the patient was brought to the operating room and placed in a supine position. Anesthesia was performed per protocol. Safety pause time-out was performed. Imaging was displayed in the room and laterality confirmed. ESWL was performed. The 1st 500 shocks were performed at 60 hertz. These were performed with increasing power. Once maximum power was reached the rate was increased to 180 hertz. A total of 2500 shocks were given. Targetted imaging with ultrasound/fluoroscopy showed stone smudging suggestive of disintegration. The patient tolerated the procedure well and was transferred to the recovery area upon completion. Post procedure imaging will be organized. There was no ev idence for flank discoloration.
[2021-10-01 09:38] VITALS: BP 129/68; PULSE 91; RESP 20; TEMP 36.7; O2SAT 97
[2021-10-01 09:43] VITALS: BP 102/57; PULSE 80; RESP 18; O2SAT 97
[2021-10-01 09:48] VITALS: BP 105/61; PULSE 78; RESP 18; O2SAT 98
[2021-10-01] MEDS: traMADoL HCL 50 MG TABLET PO (09:48)
[2021-10-01] MEDS: Phenazopyridine HCL 100 MG TABLET PO (09:48)
[2021-10-01 09:53] VITALS: BP 120/65; PULSE 70; RESP 18; O2SAT 98
[2021-10-01 10:08] VITALS: BP 125/68; PULSE 89; RESP 18; TEMP 36.6; O2SAT 97
== END 2021-10-01 10:45 | disposition home or self-care (01) ==
PROVIDERS: Visit Provider Urology
PROC: (CPT 50590; principal; 2021-10-01 08:50)
DX: N20.0 Calculus of kidney (principal); Z87.442 Personal history of urinary calculi; E11.9 Type 2 diabetes mellitus without complications; J45.909 Unspecified asthma, uncomplicated; E78.00 Pure hypercholesterolemia, unspecified; E03.9 Hypothyroidism, unspecified; E66.01 Morbid (severe) obesity due to excess calories; Z79.84 Long term (current) use of oral hypoglycemic drugs; Z79.899 Other long term (current) drug therapy
CPT/HCPCS: 50590; 74018; 82947; J2250; J2405; J3010

== ENCOUNTER 2021-10-08 11:55 | Outpatient (REF) | payer OTHER, SELFPAY ==
--- NOTE | ~2021-10-08 | US_ITS ---
EXAMINATION: US RETROPERITONEAL LIMITED (RENAL ONLY) CLINICAL INFORMATION: Kidney stones. COMPARISON: KUB 10/01/2021. Ultrasound renal 09/02/2021. CT abdomen pelvis 06/30/2021. TECHNIQUE: Real-time imaging of the kidneys. FINDINGS: RIGHT KIDNEY: 12.1 x 5.3 x 5.8 cm (SAG x AP x TRV). The kidney is normal in size, contour, and echogenicity. Renal cortical thickness is normal. There are 3 stones measuring 4 and 6 mm in the upper pole and 4 mm in the lower pole. There is a 1.1 x 1.3 cm cortical cyst in the midpole. No renal hydronephrosis. LEFT KIDNEY: 11.7 x 5.2 x 4.7 cm (SAG x AP x TRV). The kidney is normal in size, contour, and echogenicity. Renal cortical thickness is normal. No calculi or focal parenchymal lesions. No hydronephrosis. US/US renal BI IMPRESSION: Right renal stones.
== END 2021-10-08 11:56 | disposition home or self-care (01) ==
LOC: HO.US 11:55
PROVIDERS: Visit Provider Urology
DX: N20.0 Calculus of kidney (principal)
CPT/HCPCS: 76775

== ENCOUNTER → 2021-10-15 08:07 | Outpatient (BNVA) | payer OTHER, SELFPAY | PROVIDERS: Visit Provider Physician Assistant Surgical | DX: E66.01 Morbid (severe) obesity due to excess calories (principal); M47.816 Spondylosis without myelopathy or radiculopathy, lumbar region; M25.552 Pain in left hip; M53.3 Sacrococcygeal disorders, not elsewhere classified; M62.838 Other muscle spasm; Z68.42 Body mass index [BMI] 45.0-49.9, adult | CPT/HCPCS: 99212 ==

== ENCOUNTER → 2021-10-16 15:00 | Outpatient (BNVA) | payer OTHER, SELFPAY | PROVIDERS: Visit Provider Urology | DX: N20.0 Calculus of kidney (principal); E66.01 Morbid (severe) obesity due to excess calories | CPT/HCPCS: Q3014 ==

== ENCOUNTER 2021-10-28 09:16 | Day surgery (SDC) | payer OTHER, SELFPAY ==
--- NOTE | ~2021-10-28 | FL_ITS ---
EXAMINATION: XR FLUOROSCOPY WITH IMAGES CLINICAL INFORMATION: Sprint implant lumbar. COMPARISON: CT abdomen and pelvis 06/30/2021 TECHNIQUE: Fluoroscopy performed by Dr. Joseph Barrow. Fluoroscopy time: 0.1 minutes. Cumulative Dose: 5.29 mGy. DAP: 1.23 Gy-cm2. Images: 1. FINDINGS: There is a needle/electrode with tip overlying the left lamina mid lumbar spine. FL/FL guidance in OR IMPRESSION: Fluoroscopy for pain management procedure.
[2021-10-28 09:58] VITALS: BMI 45.7
--- NOTE | 2021-10-28 11:08 | MHC.SHP ---
Pre-Procedural Eval Section A Date of Service: 10/28/21 The patient is an INPATIENT: No Changes since office visit: Yes Patient answered all questions Section B Chief Complaint: spondylosis Details of Present Illness: as above Relevant Family History (Specify if Yes): No Relevant Social History: Other (specify) Present Medications: see Short Stay Collaborative assessment Medical History: No relevant PMH History of Previous Operations: Relevant previous surgery/procedure and date(s) Allergies: Allergies Allergy/AdvReac Type Severity Reaction Status Date / Time No Known Allergies Allergy Verified 10/16/21 11:31 [No Known Allergies*] Review of Systems Sugical H&P ROS: Negative: Cardiovascular, Respiratory, Neurological, Psychiatric, Hem-Onc, Allergic/Immunologic, Gastrointestinal, Genitourinary, Musculoskeletal, Integumentary, Endocrine and Eyes/Ears/Nose/Throat and Yes, Specify: Constitution (obesity) Exam Surgical H&P Exam: Normal: HEENT, Normal: Heart, Normal: Lungs, Normal: Extremities, Normal: Skin and Normal: Neurological and Significant Findings: Abdomen (enlargedged 2 to i/a and s/q fat) Plan Diagnosis/Plan: Unchanged I have reviewed the history and physical and performed a pertinent physical examination on my patient. No changes have occurred unless specified.
--- NOTE | 2021-10-28 11:12 | P.OP_ITS ---
Operative Note Operative Note Date of Service: 10/28/21 Narrative: Percutaneous implantation of peripheral nerve stimulation Sprint system. After the risks, benefits and alternatives were discussed with the patient and informed consent was obtained, patient was brought to the operating room and placed in the prone position. Time out was performed delineating correct site and side of the procedure , name and of the patient, patient participated in time out procedure. Patient received antibiotics 2 g cefazolin approximately 30 minutes before the onset of the procedure. C-arm was brought over the operating field and clear picture of the L3 lamina on the left was delineated on the screen. The lower back of the patient was prepped with ChloraPrep and draped with full body fenestrated drape. The upper central portion of the lamina was chosen as a target of the needle tip insertion . After identifying and marking the intended target, the skin around the planned entry point and the subcutaneous tissues were injected with local anesthetic forming skin wheal..A percutaneous sleeve and stimulating probe lead introduction system were assembled, inserted and advanced through the skin wheal to the? point of interest under C-arm view in tunnel vision fashion, the introducer needle was delivered to a location in proximity to the nerve. multiple stimulations were performed and Nerve target acquisition was confirmed noting generation of? in the? corresponding to the nerve being stimulated. Various electrical parameter combinations were tested overlapping the distribution of the patient?s typical region of pain. The stimulating probe was removed from the introducer and a percutaneous lead was guided through the needle and delivered to a location in similar proximity to the nerve. Final location was verified with electrical stimulation. The introducer needle was re moved, and the exposed end of the percutaneous lead was attached to an external stimulator unit. Various electrical parameter combinations were again tested until the patient indicated paresthesia or muscle tension overlapping the distribution of the patient?s typical region of pain. After confirming that lead impedance was in the normal range, the external unit was detached, the needle was removed, and the lead was anchored at the skin. The lead was threaded into the connector block and electrical continuity and desired patient response was confirmed. The connector block was attached to the external stimulator unit. The site was covered with a sterile occlusive dressing . Upon completion of the procedure the patient was taken outside the OR where she recovered uneventfully she went home without immediate complications.
--- NOTE | 2021-10-28 11:39 | PM.OP ---
Brief Operative Note Date of Service: 10/28/21 Pre-op diagnosis: spondylosis lumbar spine Post-op diagnosis: same Procedure: Sprint PNS left L3 Implants: none permanent Surgeon: Joseph Barrow MD Anesthesia: local Was an [employer] To [employer] Sales Representative used for this Procedure?: No Estimated blood loss (mL): 0 Pathology: none sent Condition: stable Disposition: PACU
[2021-10-28 11:40] VITALS: BP 140/86; PULSE 86; RESP 16; TEMP 36.6; O2SAT 100
== END 2021-10-28 12:16 ==
LOC: HO.SSS 09:17
PROVIDERS: Visit Provider Anesthesiology
PROC: (CPT 64555; principal; 2021-10-28 11:00)
DX: M47.816 Spondylosis without myelopathy or radiculopathy, lumbar region (principal); G89.29 Other chronic pain; M25.552 Pain in left hip; M53.3 Sacrococcygeal disorders, not elsewhere classified; M62.838 Other muscle spasm; R20.0 Anesthesia of skin; J45.909 Unspecified asthma, uncomplicated; E11.9 Type 2 diabetes mellitus without complications; E78.5 Hyperlipidemia, unspecified; I10 Essential (primary) hypertension; E66.01 Morbid (severe) obesity due to excess calories; Z68.42 Body mass index [BMI] 45.0-49.9, adult
CPT/HCPCS: 64555; C1778; J0690

== ENCOUNTER → 2021-11-03 08:02 | Outpatient (BNVA) | payer OTHER, SELFPAY | PROVIDERS: Visit Provider Anesthesiology | DX: Z48.01 Encounter for change or removal of surgical wound dressing (principal); E66.01 Morbid (severe) obesity due to excess calories; Z68.41 Body mass index [BMI] 40.0-44.9, adult | CPT/HCPCS: 99211; 99212 ==

== ENCOUNTER 2021-11-05 07:53 | Outpatient (REF) | payer OTHER, SELFPAY ==
--- NOTE | ~2021-11-05 | US_ITS ---
EXAMINATION: US COMPLETE ABDOMEN WITH LIVER ELASTOGRAPHY CLINICAL INFORMATION: Obesity COMPARISON: Previous knee CT of the abdomen and pelvis June 2021 TECHNIQUE: Real-time imaging of the abdominal viscera. Noninvasive ultrasound liver fibrosis assessment is performed using Caroline ElastPQ point quantification shear wave elastography (2D-SWE) with a C5-2 MHz transducer. Multiple elastography samples are obtained. FINDINGS: PANCREAS: The visualized pancreatic head and body are normal in appearance. The remainder of the pancreas is obscured from visualization by the overlying bowel gas. ABDOMINAL AORTA: The proximal, middle, and distal aortic segments are normal in caliber. INFERIOR VENA CAVA: Visualized portions are normal. LIVER: Normal. The liver demonstrates normal size, contour and echogenicity. No focal lesion or intrahepatic biliary duct dilatation. The right lobe measures 17 cm in length. The left lobe measures 13 cm in length. Portal flow is normal/hepatopedal Shear wave liver elastography median stiffness is 1.8 m/s (reference: normal median stiffness is 1.3 m/s or less). IQR/median stiffness to assess sampling precision is 0.28 (reference: good quality data set is IQR/median stiffness of 0.15 or less). GALLBLADDER: Surgically removed COMMON BILE DUCT: Normal in caliber measuring 0.2 cm in diameter. RIGHT KIDNEY: There are 2 small 3 mm stones in the lower pole. There is a 1.1 cm cyst in the midpole.. No hydronephrosis. No hydronephrosis. The kidney measures 13.5 cm in maximum dimension. LEFT KIDNEY: Normal. No hydronephrosis. No renal calculi or focal parenchymal lesions. The kidney measures 12.4 cm in maximum dimension. SPLEEN: Upper normal in size. The spleen measures 12.5 cm in maximum dimension. FREE FLUID: None. US/US abdomen comp w elastography IMPRESSION: 1. Impression: Normal-appearing liver. Right renal stones and small cysts. Limited visualization of the pancreas. 2. Liver elastography: Nondiagnostic due to sampling error. REFERENCE: Society of Radiologists in Ultrasound Liver Stiffness Thresholds (2019): LIVER STIFFNESS THRESHOLDS: *Liver Stiffness equal or less than 1.3 m/s: High probability of being normal. *Liver Stiffness less than 1.7 m/s: In the absence of other known clinical signs, rules out compensated advanced chronic liver disease. *Liver Stiffness 1.7-2.1 m/s: Suggestive of compensated advanced chronic liver disease but need further test for confirmation. *Liver Stiffness over 2.1 m/s: Rules in compensated advanced chronic liver disease. *Liver Stiffness over 2.4 m/s: Suggestive of clinically significant portal hypertension. QUALITY OF DATA SET: *IQR/Median value equal or less than 0.15 implies a quality data set. *IQR/Median value over 0.15 implies a poor quality data set. SIGNIFICANT CHANGE FROM PRIOR EXAM: Significant change if liver stiffness measurement is 10% or greater from prior exam. OTHER CONSIDERATIONS: The stage of liver fibrosis may be overestimated in the setting of acute hepatitis, liver inflammation, elevated liver function tests, hepatic vascular congestion, obstructive cholestasis, non-fasting state, and infiltrative diseases such as amyloidosis and lymphoma. In some patients with NAFLD, the liver stiffness thresholds for compensated advanced chronic liver disease may be lower. In causes other than viral hepatitis and NAFLD, liver stiffness thresholds are not well established.
--- NOTE | ~2021-11-05 | FL_ITS ---
EXAMINATION: XR FLUOROSCOPY UPPER GI WITH AIR CLINICAL INFORMATION: Morbid obesity. COMPARISON: 10/13/2016. TECHNIQUE: Air-contrast upper gastrointestinal examination. FINDINGS: There is normal apposition of the vocal cords while saying E. There is normal elevation of the soft palate while saying candy. The patient swallowed thin and thick barium and a half-inch diameter barium tablet without difficulty. No nasopharyngeal reflux or tracheal aspiration was identified. There is normal tracheal motility without persistent stricture or mucosal erosions. No hiatal hernia. There was free spontaneous gastroesophageal reflux to the level of the thoracic inlet. The stomach demonstrates normal distensibility without persistent stricture or abnormal mass. No ulceration identified. There was no delay in gastric emptying. The duodenal bulb and sweep appear unremarkable. FLUOROSCOPY TIME: 1.7 minutes. DOSE AREA PRODUCT: 22.327 Gy-cm2 (moran-centimeter squared). FL/FL upper GI w air IMPRESSION: Free gastroesophageal reflux to the level of the thoracic inlet. Otherwise unremarkable air-contrast upper gastrointestinal examination.
--- NOTE | ~2021-11-05 | XR_ITS ---
EXAMINATION: XR CHEST CLINICAL INFORMATION: Obesity COMPARISON: Previous chest x-ray February 2018 TECHNIQUE: 2 views of the chest were obtained. FINDINGS: No significant abnormality is noted involving the heart, lungs, mediastinum, bony thorax or soft tissues. XR/XR chest 2V IMPRESSION: Unremarkable examination.
[2021-11-05 09:31] LABS: MANUAL DIFF FLAG NO
[2021-11-05 09:43] LABS: Basophils Absolute Auto 0.1 X10*3/uL (0.0-0.2); Basophils Percent Auto 0.5 % (0-2); Eosinophils Absolute Auto 0.1 X10*3/uL (0.0-0.4); Eosinophils Percent Auto 1.2 % (0-4); Hematocrit 40.2 % (37.0-47.0); Imm Gran Abs Auto 0.03 X10*3/uL (0.00-0.03); Imm Gran Pct Auto 0.3 % (0.0-0.4); Lymphocytes Absolute Auto 2.3 X10*3/uL (1.2-4.9); Lymphocytes Percent Auto 22.7 % (20-40); Mean Corpuscular HGB Conc 32.3 g/dl (31.0-35.0); Mean Corpuscular Hemoglobin 27.3 pg (27.0-33.0); Mean Corpuscular Volume 84.5 fL (80.0-98.0); Mean Platelet Volume 10.6 fL (9.4-12.3); Monocytes Absolute Auto 0.5 X10*3/uL (0.1-1.2); Monocytes Percent Auto 5.1 % (2-11); Neutrophils Absolute Auto 7.1 x10*3/uL (2.0-8.3); Neutrophils Percent Auto 70.2 % (45-73); Platelet Count 337 X10*3/uL (160-400); Red Blood Count 4.76 X10*6/uL (4.20-5.50); Red Cell Distribution Width 13.8 % (11.0-16.0); White Blood Count 10.2 X10*3/uL (4.8-10.8)
[2021-11-05 10:08] LABS: Estimated Average Glucose 143 mg/dL; Hemoglobin A1c % 6.6 %
[2021-11-05 10:11] LABS: Alanine Aminotransferase 30 U/L (0-31); Albumin Level 4.5 g/dL (3.5-5.0); Alkaline Phosphatase 136 U/L (39-117); Anion Gap 15 (12-20); Aspartate Amino Transferase 21 U/L (5-31); Bilirubin Total 0.5 mg/dL (0.0-1.0); Blood Urea Nitrogen 15 mg/dL (9-16); C Reactive Protein 1.26 mg/dL (< or = 0.50); Calcium 9.5 mg/dL (8.4-10.2); Carbon Dioxide 22 mmol/L (22-29); Chloride 107 mmol/L (96-108); Cholesterol 128 mg/dL; Estimated Glomerular Filt Rate > 60; Glucose Random 143 mg/dL (60-115); HDL Cholesterol 36 mg/dL; Iron 62 mcg/dL (30-160); LDL Cholesterol Calculated 74 mg/dl; Percent Iron Saturation 20 % (15-50); Sodium 140 mmol/L (135-145); Total Iron Binding Capacity 314 mcg/dL (228-428); Total Protein 7.9 g/dL (6.5-8.0); Triglycerides 93 mg/dL; Unsaturated Iron Binding 252 ug/dL
[2021-11-05 10:37] LABS: Ferritin 102 ng/mL (10-250); TSH reflex Free T4 1.42 uIU/mL (0.32-4.0); Vitamin D 25-OH Total 37.7 ng/mL (>30)
[2021-11-05 10:52] LABS: Folate > 20.0 ng/mL (> or = 4.0); Vitamin B12 423 pg/mL (200-900)
[2021-11-05 11:08] LABS: Insulin 22 uU/mL (2-29)
[2021-11-06 14:57] LABS: Calcium (PTHI) 9.3 mg/dL (8.6-10.4); PTHI 69 pg/mL (16-77)
[2021-11-09 16:06] LABS: Zinc 86 mcg/dL (60-130)
[2021-11-10 06:21] LABS: Vitamin B1 13 nmol/L (8-30)
[2021-11-11 17:27] LABS: Vitamin A 53 mcg/dL (38-98)
== END 2021-11-05 07:54 | disposition home or self-care (01) ==
LOC: HO.US 07:53
PROVIDERS: Physician Assistant Surgical; Visit Provider Pediatrics
DX: E66.01 Morbid (severe) obesity due to excess calories (principal)
CPT/HCPCS: 36415; 71046; 74246; 76705; 76981; 80053; 80061; 82306; 82607; 82728; 82746; 83036; 83525; 83540; 83970; 84425; 84443; 84590; 84630; 85025; 86140

== ENCOUNTER → 2021-11-10 13:25 | Outpatient (BNVA) | payer OTHER, SELFPAY | PROVIDERS: Visit Provider Anesthesiology | DX: M47.816 Spondylosis without myelopathy or radiculopathy, lumbar region (principal); M25.552 Pain in left hip; M53.3 Sacrococcygeal disorders, not elsewhere classified; M62.838 Other muscle spasm | CPT/HCPCS: 99212 ==

== ENCOUNTER → 2021-11-11 14:24 | Outpatient (BNVA) | payer OTHER, SELFPAY | PROVIDERS: Referring Provider Physician Assistant Surgical; Visit Provider Dietitian, Registered | DX: E66.01 Morbid (severe) obesity due to excess calories (principal); Z71.3 Dietary counseling and surveillance | CPT/HCPCS: 97802 ==

== ENCOUNTER → 2021-11-26 12:42 | Outpatient (BNVA) | payer OTHER, SELFPAY | PROVIDERS: PCP Internal Medicine; Referring Provider Internal Medicine; Visit Provider Physician Assistant Surgical | DX: E66.01 Morbid (severe) obesity due to excess calories (principal); Z68.42 Body mass index [BMI] 45.0-49.9, adult; Z71.3 Dietary counseling and surveillance | CPT/HCPCS: 99212 ==

== ENCOUNTER → 2021-12-17 15:50 | Outpatient (BNVA) | payer OTHER, SELFPAY | PROVIDERS: PCP Internal Medicine; Visit Provider Anesthesiology | DX: M47.816 Spondylosis without myelopathy or radiculopathy, lumbar region (principal); M25.552 Pain in left hip; M53.3 Sacrococcygeal disorders, not elsewhere classified; M62.838 Other muscle spasm; E66.01 Morbid (severe) obesity due to excess calories; Z68.42 Body mass index [BMI] 45.0-49.9, adult | CPT/HCPCS: 99212 ==

== ENCOUNTER 2022-02-03 06:10 | Outpatient (REF) | payer OTHER, SELFPAY ==
--- NOTE | ~2022-02-03 | FL_ITS ---
EXAMINATION: XR FLUOROSCOPY WITH IMAGES CLINICAL INFORMATION: Spondylosis without myelopathy or radiculopathy lumbar region. COMPARISON: 10/28/2021 TECHNIQUE: Fluoroscopy Supervised By: Dr. Joseph Barrow. Fluoroscopy Time: 1.1 minutes. Cumulative Dose: 75.4 mGy. DAP: 20.5 Gy-cm2. Images: 6. FINDINGS: [place] and contrast are seen overlying the region of the lamina of L4 and L5 bilaterally. FL/FL guidance in treatment room IMPRESSION: Intraoperative fluoroscopy for pain management procedure.
== END 2022-02-03 06:11 | disposition home or self-care (01) ==
LOC: CF 06:10
PROVIDERS: Visit Provider Anesthesiology
DX: M47.816 Spondylosis without myelopathy or radiculopathy, lumbar region (principal); M53.3 Sacrococcygeal disorders, not elsewhere classified; M62.838 Other muscle spasm; M25.552 Pain in left hip
CPT/HCPCS: 64493; 64494; J3301

== ENCOUNTER → 2022-03-18 08:32 | Outpatient (BNVA) | payer OTHER, SELFPAY | PROVIDERS: PCP Internal Medicine; Visit Provider Anesthesiology | DX: M47.816 Spondylosis without myelopathy or radiculopathy, lumbar region (principal); M25.552 Pain in left hip; M53.3 Sacrococcygeal disorders, not elsewhere classified; M62.838 Other muscle spasm | CPT/HCPCS: 99212 ==

== ENCOUNTER 2022-03-25 06:57 | Outpatient (REF) | payer OTHER, SELFPAY ==
--- NOTE | ~2022-03-25 | US_ITS ---
EXAMINATION: US RETROPERITONEAL LIMITED (RENAL ONLY) CLINICAL INFORMATION: Calculus of kidney. COMPARISON: US abdomen complete with liver elastography 11/05/2021. Ultrasound retroperitoneal limited (renal only) 10/08/2021. X-ray abdomen KUB 10/01/2021. CT abdomen and pelvis without contrast 04/30/2021. X-ray abdomen KUB 06/20/2020. TECHNIQUE: Real-time imaging of the kidneys. FINDINGS: RIGHT KIDNEY: 12.2 x 5.4 x 6.6 cm (SAG x AP x TRV). The kidney is normal in size, contour, and echogenicity. Renal cortical thickness is normal. No hydronephrosis. Benign appearing 1.0 cm cyst. 0.7 cm nonobstructing stone. LEFT KIDNEY: 12.1 x 5.9 x 5.6 cm (SAG x AP x TRV). The kidney is normal in size, contour, and echogenicity. Renal cortical thickness is normal. No focal parenchymal lesions or hydronephrosis. 0.6 cm nonobstructing stone. US/US renal BI IMPRESSION: Bilateral nonobstructing stones. Benign appearing renal cyst. Followup imaging is not routinely recommended for benign appearing cysts.
== END 2022-03-25 06:58 | disposition home or self-care (01) ==
LOC: HO.US 06:57
PROVIDERS: PCP Internal Medicine; Visit Provider Urology
DX: N20.0 Calculus of kidney (principal)
CPT/HCPCS: 76775

== ENCOUNTER → 2022-04-01 12:22 | Outpatient (BNVA) | payer OTHER, SELFPAY | PROVIDERS: PCP Internal Medicine; Visit Provider Nurse Practitioner Family | DX: N20.0 Calculus of kidney (principal); E11.9 Type 2 diabetes mellitus without complications; I10 Essential (primary) hypertension; E78.5 Hyperlipidemia, unspecified; E66.01 Morbid (severe) obesity due to excess calories | CPT/HCPCS: 99212 ==

== ENCOUNTER 2022-04-29 05:53 | Day surgery (SDC) | payer OTHER, SELFPAY ==
[2022-04-23 14:24] VITALS: BMI 45.7
--- NOTE | 2022-04-28 13:44 | HO.ANESPROP2 ---
Documented by User: Stephany Olivarez NP 04/28/22 13:47 HPI - Anesthesia Eval Consult details Narrative: 52yo F for Right ESWL Last ESWL 09/2021 with GA-LMA 3 PMFSH Active Problems Active Problems: All Active Problems (Updated 10/15/21 @ 08:49 by NINFA Martinez) Sinus tachycardia (Acute) Spondylosis of lumbar spine (Acute) Left hip pain (Acute) Sacroiliac joint pain (Acute) Muscle spasm (Acute) Morbid obesity (Acute) Kidney stones (Acute) Past Medical History Medical History Asthma Diabetes Hyperlipidemia Hypertension Kidney stones Morbid obesity Family History Family History Mother Asthma Diabetes Hypertension Breast cancer Hypercholesteremia Hypothyroid Father Diabetes Hypercholesteremia Hypertension Heart abnormality Gangrene associated with diabetes mellitus FHx: cancer of prostate Sister Hypothyroid Diabetes Anemia Family history of problems with anesthesia: No Surgical History Surgical History (Updated 04/23/22 @ 14:23 by Liya Rivera RN) Hx of section Hx of colonoscopy Hx of lithotripsy S/P placement of nerve stimulator History of Problems with Anesthesia: No Social History Social History Household Members: Spouse Housing: Apartment Do you presently have visiting nurse or other home services: No Alcohol intake: never Patient Tobacco Use Status: Never used Tobacco Second Hand Smoke Exposure: No Use of substances other than those prescribed or required for medical reasons: No Are you DNR?: No Advance Directives: Yes Advance Directives Information Provided: No Advance Directives on File: Yes Advance Directives Date on File: 07/01/21 service: No Meds Allergies Allergy/AdvReac Type Severity Reaction Status Date / Time No Known Allergies Allergy Verified 04/01/22 13:30 [No Known Allergies*] Home Medications Medication Instructions Recorded Confirmed Last Taken Type ascorbic acid (vitamin C) 500 mg 500 mg PO DAILY 07/01/21 04/23/22 Unknown History tablet atorvastatin 40 mg tablet 1 tab DAILY 07/01/21 04/23/22 Unknown History buspirone 15 mg tablet 1 tab PO TID 07/01/21 04/23/22 Unknown History clonazepam 2 mg tablet 1 tab PO BID PRN Anxiety 07/01/21 04/23/22 Unknown History escitalopram oxalate 20 mg tablet 1 tab QAM 07/01/21 04/23/22 Unknown History hydroxyzine pamoate 50 mg capsule 1 cap PO TID 07/01/21 04/23/22 Unknown History montelukast 10 mg tablet 1 tab BEDTIME 07/01/21 04/23/22 Unknown History prazosin 2 mg capsule 2 cap PO BEDTIME 07/01/21 04/23/22 Unknown History quetiapine 400 mg tablet 2 tab PO BEDTIME 07/01/21 04/23/22 Unknown History topiramate 200 mg tablet 1 tab BEDTIME 07/01/21 04/23/22 Unknown History blood sugar diagnostic (Jordy #10 ea 07/15/21 03/18/22 Unknown History Lite Strips) divalproex 500 mg tablet,extended 1,500 mg PO BEDTIME 10/16/21 04/23/22 Unknown History release 24 hr albuterol sulfate 90 mcg/actuation 90 mcg inhalation Q4H PRN wheezing 04/01/22 04/23/22 Unknown History aerosol inhaler (Ventolin HFA) dulaglutide 0.75 mg/0.5 mL 0.75 mg subcut QWEEK 04/01/22 04/23/22 Unknown History subcutaneous pen injector (Trulicity) fluoxetine 40 mg capsule 40 mg PO DAILY 04/01/22 04/23/22 Unknown History lisinopril 10 mg tablet 10 mg PO DAILY 04/01/22 04/23/22 Unknown History mirtazapine 15 mg tablet 15 mg PO BEDTIME 04/01/22 04/23/22 Unknown History Exam Exam Date and Time: April 28, 2022 1344 Height,Weight and Vital Signs: Height 5 ft Weight 106.141 kg Pertinent Lab Results Pertinent Lab Results: Laboratory Tests 11/05/21 11/05/21 09:28 09:28 WBC 10.2 Hgb 13.0 Hct 40.2 Plt Count 337 Sodium 140 Potassium 4.0 Chloride 107 Carbon Dioxide 22 BUN 15 Creatinine 0.91 Narrative Narrative: EKG 06/2021 (in ED with renal stone) Vent. Rate : 133 BPM ? ? Atrial Rate : 133 BPM ?? P-R Int : 150 ms? QRS Dur : 076 ms ? ? QT Int : 288 ms ? ? ? P-R-T Axes : 040 031 022 degrees ?? QTc Int : 428 ms ? Sinus tachycardia Otherwise normal ECG When compared with ECG of 18-FEB-2018 19:58, Vent. rate has increased BY? 49 BPM Assessment and Plan Assessment Anesthesia Assessment: Chart Reviewed Final Anesthetic Review Family History of Problems with Anesthesia: No History of Problems with Anesthesia: No Documented by User: Ankur Magdaleno MD 04/29/22 08:58 PMF Past Medical History Medical History Asthma Diabetes Hyperlipidemia Hypertension Kidney stones Morbid obesity Family History Family History Mother Asthma Diabetes Hypertension Breast cancer Hypercholesteremia Hypothyroid Father Diabetes Hypercholesteremia Hypertension Heart abnormality Gangrene associated with diabetes mellitus FHx: cancer of prostate Sister Hypothyroid Diabetes Anemia Surgical History Surgical History (Updated 04/23/22 @ 14:23 by Liya Rivera RN) Hx of section Hx of colonoscopy Hx of lithotripsy S/P placement of nerve stimulator Social History Social History Household Members: Spouse Housing: Apartment Do you presently have visiting nurse or other home services: No Alcohol intake: never Patient Tobacco Use Status: Never used Tobacco Second Hand Smoke Exposure: No Use of substances other than those prescribed or required for medical reasons: No Are you DNR?: No Advance Directives: Yes Advance Directives Information Provided: No Advance Directives on File: Yes Advance Directives Date on File: 07/01/21 service: No Meds Allergies Allergy/AdvReac Type Severity Reaction Status Date / Time No Known Allergies Allergy Verified 04/01/22 13:30 [No Known Allergies*] Home Medications Medication Instructions Recorded Confirmed Last Taken Type ascorbic acid (vitamin C) 500 mg 500 mg PO DAILY 07/01/21 04/23/22 Unknown History tablet atorvastatin 40 mg tablet 1 tab DAILY 07/01/21 04/23/22 Unknown History buspirone 15 mg tablet 1 tab PO TID 07/01/21 04/23/22 Unknown History clonazepam 2 mg tablet 1 tab PO BID PRN Anxiety 07/01/21 04/23/22 Unknown History escitalopram oxalate 20 mg tablet 1 tab QAM 07/01/21 04/23/22 Unknown History hydroxyzine pamoate 50 mg capsule 1 cap PO TID 07/01/21 04/23/22 Unknown History montelukast 10 mg tablet 1 tab BEDTIME 07/01/21 04/23/22 Unknown History prazosin 2 mg capsule 2 cap PO BEDTIME 07/01/21 04/23/22 Unknown History quetiapine 400 mg tablet 2 tab PO BEDTIME 07/01/21 04/23/22 Unknown History topiramate 200 mg tablet 1 tab BEDTIME 07/01/21 04/23/22 Unknown History blood sugar diagnostic (FreeStyle #10 ea 07/15/21 03/18/22 Unknown History Lite Strips) divalproex 500 mg tablet,extended 1,500 mg PO BEDTIME 10/16/21 04/23/22 Unknown History release 24 hr albuterol sulfate 90 mcg/actuation 90 mcg inhalation Q4H PRN wheezing 04/01/22 04/23/22 Unknown History aerosol inhaler (Ventolin HFA) dulaglutide 0.75 mg/0.5 mL 0.75 mg subcut QWEEK 04/01/22 04/23/22 Unknown History subcutaneous pen injector (Trulicity) fluoxetine 40 mg capsule 40 mg PO DAILY 04/01/22 04/23/22 Unknown History lisinopril 10 mg tablet 10 mg PO DAILY 04/01/22 04/23/22 Unknown History mirtazapine 15 mg tablet 15 mg PO BEDTIME 04/01/22 04/23/22 Unknown History Exam Airway Mallampati Class: II TM Dist: <=3cm Neck ROM: Full Loose/Missing/Broken Teeth: Yes and Upper Heart: ok Lungs: ok Assessment and Plan Assessment Anesthesia Assessment: Anesthesia Plan Discussed Final Anesthetic Review NPO: Yes ASA Class: III Final Preanesthetic Review: No Changes in Pt Med Stat, Meds/Allgs Chart Reviewed, Consent Obtained/Reviewed and Anes Risks/Benef Reviewed Patient Risk: High Procedure Risk: Low Anesthetic Plan Anesthetic Plan: MAC: and Agree w/ Assess. and Plan Disposition: Standard PACU
[2022-04-29] VITALS (7 sets, daily range): BP systolic 128–141; BP diastolic 72–96; PULSE 82–98; RESP 16–20; TEMP 36.3–36.6; O2SAT 90–97
--- NOTE | ~2022-04-29 | XR_ITS ---
EXAMINATION: XR ABDOMEN KUB CLINICAL INDICATION: Preop right sided lithotripsy COMPARISON: Renal ultrasound dated 03/23/2022. TECHNIQUE: 2 views of the abdomen. FINDINGS: No sufficiently radiodense calculi are evident radiographically. The bowel gas pattern is normal with no evidence of ileus or obstruction. Stool present throughout the colon. No unusual soft tissue calcifications are noted. The bones are unremarkable. XR/XR KUB IMPRESSION: * No sufficiently radiodense calculi are evident radiographically. * Mild constipation.
[2022-04-29 06:53] LABS: Glucose, Whole Blood 161 mg/dL (60-115)
[2022-04-29] MEDS: Lactated Ringers 1,000 ML 999 ML IV (06:58)
[2022-04-29] MEDS: Acetaminophen 325 MG TABLET 975 MG PO (07:01)
--- NOTE | 2022-04-29 09:20 | W.PM.OPN ---
Operative Note Operative Note Date of Service: 04/29/22 Narrative: PreOperative Diagnosis: right Renal stones Post Operative Diagnosis: right Renal stones Procedure: right ESWL Surgeon: Dr Abner Michaud Anesthesia: mac/sedation Indications for procedure: The patient understands ESWL may be a staged procedure and subsequent intervention may be required based on imaging after ESWL. Quoted stone clearance rates for a solitary procedure are in the 70-80% range based primarily on stone location. They also understand there is a risk of bleeding to the kidney, infection, damage to adjacent organs, and stone migration following the procedure. - Imaging right 7 mm Procedure: After informed consent was verified the patient was brought to the operating room and placed in a supine position. Anesthesia was performed per protocol. Prehydration with lactated ringers Safety pause time-out was performed. Imaging was displayed in the room and laterality confirmed. ESWL was performed. The 1st 500 shocks were performed at 60 hertz. These were performed with increasing power. Once maximum power was reached the rate was increased to 180 hertz. Lasix given A total of 2500 shocks were given. Targeted imaging with ultrasound/fluoroscopy showed stone smudging suggestive of disintegration. The patient tolerated the procedure well and was transferred to the recovery area upon completion. Post procedure imaging will be organized. There was no evidence for flank discoloration.
[2022-04-29] MEDS: fentaNYL citrate/PF 100 MCG/2 ML VIAL 50 MCG IVPUSH (09:30)
[2022-04-29] MEDS: Ketorolac Tromethamine 15 MG/ML VIAL IVPUSH (09:31)
== END 2022-04-29 10:55 | disposition home or self-care (01) ==
PROVIDERS: PCP Internal Medicine; Visit Provider Urology
PROC: (CPT 50590; principal; 2022-04-29 08:10)
DX: N20.0 Calculus of kidney (principal); Z87.442 Personal history of urinary calculi; I10 Essential (primary) hypertension; E78.5 Hyperlipidemia, unspecified; J45.909 Unspecified asthma, uncomplicated; E11.9 Type 2 diabetes mellitus without complications; E66.01 Morbid (severe) obesity due to excess calories; Z79.85 Long-term (current) use of injectable non-insulin antidiabetic drugs; Z79.899 Other long term (current) drug therapy
CPT/HCPCS: 50590; 74018; 82947; J1885; J2250; J3010

== ENCOUNTER 2022-06-02 12:01 | Outpatient (REF) | payer OTHER, SELFPAY ==
--- NOTE | ~2022-06-02 | US_ITS ---
EXAMINATION: US RETROPERITONEAL LIMITED (RENAL ONLY) CLINICAL INFORMATION: Calculus of kidney. COMPARISON: Ultrasound renal 03/25/2022 TECHNIQUE: Real-time imaging of the kidneys. FINDINGS: RIGHT KIDNEY: 10.6 x 4.6 x 5.6 cm (SAG x AP x TRV). The kidney is normal in size, contour, and echogenicity. Renal cortical thickness is normal. No renal calculi or hydronephrosis although evaluation is suboptimal. A 0.9 cm benign-appearing renal cyst. LEFT KIDNEY: 11.4 x 4.9 x 6.2 cm (SAG x AP x TRV). The kidney is normal in size, contour, and echogenicity. Renal cortical thickness is normal. No calculi or focal parenchymal lesions. No hydronephrosis. Pelviectasis without shelly hydronephrosis. Few echogenic foci without shadowing or twinkle artifact may reflect vascular reflectors. US/US renal BI IMPRESSION: 1. Left renal pelviectasis without shelly hydronephrosis. 2. Few echogenic foci without shadowing or twinkle artifact in the left kidney may reflect vascular reflectors. No definite renal stones.
== END 2022-06-02 12:02 | disposition home or self-care (01) ==
LOC: HO.US 12:01
PROVIDERS: Visit Provider Urology
DX: N20.0 Calculus of kidney (principal)
CPT/HCPCS: 76775

== ENCOUNTER → 2022-06-10 11:11 | Outpatient (BNVA) | payer OTHER, SELFPAY | PROVIDERS: PCP Internal Medicine; Visit Provider Urology | DX: N20.0 Calculus of kidney (principal) | CPT/HCPCS: 99212 ==

== ENCOUNTER 2022-07-14 06:02 | Outpatient (REF) | payer OTHER, SELFPAY ==
--- NOTE | ~2022-07-14 | FL_ITS ---
EXAMINATION: XR FLUOROSCOPY WITH IMAGES CLINICAL INFORMATION: M47.816 - Spondylosis without myelopathy or radiculopathy, lumbar region COMPARISON: [facility] 04/29/2022 TECHNIQUE: Fluoroscopy Supervised By: Dr. Joseph Barrow. Fluoroscopy Time: 0.7 minutes. Cumulative Dose: 46.9 mGy. DAP: 0.551 Gycm2. Images: 6. FINDINGS: There are spinal needles overlying the bilateral outer L3, L4, and L5 neural foramen. There is contrast seen in the respective nerve sheaths. Some early transforaminal epidural extension is suggested. No visible vascular communication. FL/FL guidance in treatment room IMPRESSION: Fluoroscopy for pain management procedures.
== END 2022-07-14 06:03 | disposition home or self-care (01) ==
LOC: CF 06:02
PROVIDERS: Visit Provider Anesthesiology
DX: M47.816 Spondylosis without myelopathy or radiculopathy, lumbar region (principal); M25.552 Pain in left hip; M53.3 Sacrococcygeal disorders, not elsewhere classified; M62.838 Other muscle spasm
CPT/HCPCS: 64493; 64494; J2795; J3301

== ENCOUNTER → 2022-08-10 08:09 | Outpatient (BNVA) | payer OTHER, SELFPAY | PROVIDERS: PCP Internal Medicine; Visit Provider Anesthesiology | DX: M47.26 Other spondylosis with radiculopathy, lumbar region (principal); M25.552 Pain in left hip; M53.3 Sacrococcygeal disorders, not elsewhere classified; M62.838 Other muscle spasm; M51.36 Other intervertebral disc degeneration, lumbar region | CPT/HCPCS: 99212 ==

== ENCOUNTER 2023-01-21 15:17 | Outpatient (REF) | payer OTHER, SELFPAY ==
--- NOTE | ~2023-01-21 | US_ITS ---
EXAMINATION: US RETROPERITONEAL LIMITED (RENAL ONLY) CLINICAL INFORMATION: Calculus of kidney. COMPARISON: Renal ultrasound 06/02/2022. TECHNIQUE: Real-time imaging of the kidneys. Technically limited study secondary to bowel gas and body habitus. FINDINGS: RIGHT KIDNEY: 12.9 x 4.5 x 4.8 cm (SAG x AP x TRV). The kidney is normal in size, contour, and echogenicity. Renal cortical thickness is normal. No hydronephrosis. Benign-appearing renal cyst measuring 1.3 cm. No follow up imaging is recommended. 5 mm echogenic focus in the right lower pole without clinical or shadowing may reflect a vascular reflector though the differential consideration would include a nonobstructing stone. LEFT KIDNEY: 12.1 x 4.9 x 5.4 cm (SAG x AP x TRV). The kidney is normal in size, contour, and echogenicity. Renal cortical thickness is normal. No calculi or focal parenchymal lesions. No hydronephrosis. Echogenic focus without twinkle artifact or shadowing may reflect a vascular reflector. No definite nephrolithiasis. US/US renal BI IMPRESSION: 5 mm echogenic focus in the right lower pole without clinical or shadowing may reflect a vascular reflector though the differential consideration would include a nonobstructing stone.
== END 2023-01-21 15:18 | disposition home or self-care (01) ==
LOC: HO.US 15:17
PROVIDERS: PCP Internal Medicine; Visit Provider Urology
DX: N20.0 Calculus of kidney (principal)
CPT/HCPCS: 76775

== ENCOUNTER 2023-01-25 07:58 | Outpatient (REF) | payer OTHER, SELFPAY ==
--- NOTE | ~2023-01-25 | MR_ITS ---
EXAMINATION: MR LUMBAR SPINE WITHOUT CONTRAST CLINICAL INFORMATION: Spondylosis. Low back pain and left leg pain COMPARISON: Lumbar radiographs 12/01/2015 TECHNIQUE: MRI of the lumbar spine was obtained using routine sequences without the administration of intravenous contrast. FINDINGS: This examination assumes the presence of 5 lumbar type vertebral bodies. For the purposes of this examination, the L5-S1 intervertebral disc space is visualized on axial series 7 image 23. The normal lumbar lordosis is preserved. No significant spondylolisthesis. Lumbar vertebral body heights are maintained. Multilevel degenerative endplate changes are noted including endplate edema along the inferior aspect of L4 and superior aspect of L5. Scattered intraosseous hemangiomas are noted. The conus medullaris and cauda equina nerve roots are unremarkable; the conus terminates at the level of L2. L1-L2: Facet arthropathy with ligamentum flavum redundancy. The spinal canal is patent. There is mild narrowing of the left neural foramen. L2-L3: No significant spinal canal stenosis. The neural foramen remain patent. Facet arthropathy. L3-L4: Facet arthropathy. The spinal canal and neural foramen are not significantly narrowed. L4-L5: Facet arthropathy. The spinal canal and neural foramen are not significantly narrowed. L5-S1: Small left foraminal disc protrusion. Facet arthropathy with ligamentum flavum redundancy. Early tapering of the thecal sac with prominent epidural fat. There is mild narrowing of the bilateral neural foramen with abutment of the exiting left L5 nerve root. Subcentimeter T2 hyperintense right renal lesion is too small to fully characterize but likely represents a cyst. MR/MR lumbar spine wo con IMPRESSION: Mild multilevel degenerative changes of the lumbar spine as described above. No high-grade spinal canal or neural foraminal stenosis.
== END 2023-01-25 07:59 | disposition home or self-care (01) ==
LOC: HO.MRI 07:58
PROVIDERS: PCP Internal Medicine; Visit Provider Anesthesiology
DX: M47.816 Spondylosis without myelopathy or radiculopathy, lumbar region (principal); M51.36 Other intervertebral disc degeneration, lumbar region; M54.16 Radiculopathy, lumbar region; M53.3 Sacrococcygeal disorders, not elsewhere classified; M62.838 Other muscle spasm
CPT/HCPCS: 72148; 99212

== ENCOUNTER 2023-01-25 14:27 | Outpatient (AMB) | payer OTHER, SELFPAY ==
--- NOTE | 2023-01-25 14:31 | MHC.OFFVIS ---
Intake Vital Signs 01/25/23 14:39 Height 5 ft Weight 236 lb BMI 46.1 BP 136/84 Blood Pressure Location Lt radial Position Sitting Respiration 16 Pulse 61 Pulse Source Pulse Oximeter Pulse Oximetry (%) 96 Oxygen Delivery Method Room Air Intake Visit Reasons: discuss alternative for muscle relaxer/confirmed Allergies No Known Allergies [No Known Allergies*] Allergy (Verified 01/25/23 14:39) HPI HPI Comments History of Present Illness Details Ms. Tejal Goldstein is very pleasant Yi-speaking morbidly obese female who is back in my office with complains on pain in the lumbar spine was radiation to the left lower extremity to level of the knee as well as sensation of the muscular cramps to the area of the lower leg. She went for MRI today and she reports that the MRI aggravated her pain. I decided to wait 1 more week until her MRI reading is completed and have an appointment with MRI evaluation for this patient. Possibility exist to treat her pain with transforaminal epidural steroid injections if it is indicative on MRI. I will see her in 7 days. Previously she complain on axial pain in the lower back with radiation to the left flank it minimal radiation to the extremities. This is a new pain developed and on physical exam as below SLR appears to be positive on the left and Lassegue test on the left seem to be positive as well. Her MRI dictated as below was performed more than 5 years ago. We decided that I will send her for MRI of the lumbar spine. Prior: She was a subject of multiple injections at [facility] and radiofrequency ablation at the [facility] which resulted at 8 months of the pain relief.? She came to this office and she received LOFTY PNS attempted stimulation which resulted at fracture of the stimulating cable.? The claims representative the [employer] because of the severe obesity of this patient could not guarantee that the repeating lozano of the procedure would not result in another fracture of the device.? She was asking me what can be offered to her today.? I recommended her most importantly to work on her weight loss.? She is currently engaged with bariatric program.? On 02/03/2022 she received therapeutic medial branch block L3-L4 does ramus L5.? She reported about 50% pain improvement, she reported better mobility and better activities of daily living.? [facility] Medical History (Updated 08/10/22 @ 08:40 by Joseph Barrow MD) Morbid obesity Diabetes Asthma Hyperlipidemia Hypertension Kidney stones Surgical History (Updated 04/23/22 @ 14:23 by Liya Rivera RN) S/P placement of nerve stimulator Hx of lithotripsy Hx of section Hx of colonoscopy Family History Mother Asthma Diabetes Hypertension Breast cancer Hypercholesteremia Hypothyroid Father Diabetes Hypercholesteremia Hypertension Heart abnormality Gangrene associated with diabetes mellitus FHx: cancer of prostate Sister Hypothyroid Diabetes Anemia Social History Household Members: Spouse Housing: Apartment Do you presently have visiting nurse or other home services: No Alcohol intake: never Patient Tobacco Use Status: Never used Tobacco Second Hand Smoke Exposure: No Advance Directives Date on File: 07/01/21 service: No Review of Systems Const All systems reviewed & are unremarkable except as noted in HPI and below Physical Exam Vital Signs: Last Vital Signs Pulse 61 01/25/23 14:39 Resp 16 01/25/23 14:39 BP 136/84 01/25/23 14:39 Pulse Ox 96 01/25/23 14:39 Oxygen Delivery Method Room Air 01/25/23 14:39 BMI result Body Mass Index 46.1 Const General: healthy appearing and no acute distress Resp Effort & Inspection: normal respiratory effort Auscultation: clear to auscultation bilaterally Cardio Rate: regular rate Rhythm: regular rhythm GI Auscultation: normal bowel sounds Back/Spine/Pelvis Other: Tenderness on palpation in paraspinal left and midline spinal region of the lumbar spine. SLR is positive on the left. Lassegue test is positive on the left as well. Extrem General: Yes normal to inspection Results Reviewed Results Reviewed: Assessment & Plan Assessment & Plan (1) Spondylosis of lumbar spine: Code(s): M47.816 - Spondylosis without myelopathy or radiculopathy, lumbar region (2) Left hip pain: Code(s): M25.552 - Pain in left hip (3) Sacroiliac joint pain: Code(s): M53.3 - Sacrococcygeal disorders, not elsewhere classified (4) Muscle spasm: Code(s): M62.838 - Other muscle spasm (5) Disc degeneration, lumbar: Code(s): M51.36 - Other intervertebral disc degeneration, lumbar region (6) Radiculopathy, lumbar region: Code(s): M54.16 - Radiculopathy, lumbar region Plan The pain most likely is multifactorial, however this patient she started to develop new pain with radiation to the left lower extremity and cramping sensation in the left lower leg and foot. SLR and dorsiflexion of the left foot at maximal SLR result in pain increase in the back. She had MRI long time ago dictated as above. We decided to send her for the MRI of the lumbar spine. She went for MRI today and she reason reports exacerbation of the pain. I will see her in 1 week when MRI report is ready. I probably will offer her some injections after that. [employer] stimulation was not successful for this patient. Her stimulating electrode was fractured and removed few days after insertion. Unfortunately the [employer] claims representative cannot guarantee that this would not happen if patient would go for repeat of the procedure. Unfortunately I cannot offer her RFA because the longest needles here I am afraid will not be long enough to reach the target. Therapeutic medial branch block L3-L4 does ramus L5 resulted in 50% pain improvement which was performed on 02/05/2022. However following therapeutic injection performed in 07/14/2022 resulted in no pain improvement. Coding Level of Care Code Est Pt Level 3 (76893) Diagnoses Spondylosis of lumbar spine M47.816 Left hip pain M25.552 Sacroiliac joint pain M53.3 Muscle spasm M62.838 Disc degeneration, lumbar M51.36 Radiculopathy, lumbar region M54.16
[2023-01-25 14:39] VITALS: BP 136/84; PULSE 61; RESP 16; O2SAT 96; BMI 46.1
== END 2023-01-25 14:52 | disposition home or self-care (01) ==
PROVIDERS: PCP Internal Medicine; Visit Provider Anesthesiology
DX: M47.816 Spondylosis without myelopathy or radiculopathy, lumbar region (principal); M25.552 Pain in left hip; M53.3 Sacrococcygeal disorders, not elsewhere classified; M62.838 Other muscle spasm; M51.36 Other intervertebral disc degeneration, lumbar region; M54.16 Radiculopathy, lumbar region
CPT/HCPCS: 99213

== ENCOUNTER 2023-01-29 14:12 | Outpatient (AMB) | payer OTHER, SELFPAY ==
--- NOTE | 2023-01-29 15:10 | A.OFFVIS_ITS ---
Intake Intake Visit Reasons: 6m follow up/US(set) Intake Note: Patient is present for follow up ultrasound/kidney stones (imaging 01/21/23) Urology Medications: allopurinol, vitamin B6, tamsulosin Blood Thinner: none Photocopy Operator Required: Yes Photocopy Operator Name: JOSE LANTIGUAJonatan RAPP Accompanied by: Self / Same As Patient Allergies No Known Allergies [No Known Allergies*] Allergy (Verified 01/29/23 15:45) Medication List - Last Reconciled 01/29/23 by MORRIS Carcamo albuterol sulfate 90 mcg/actuation (Ventolin HFA) 90 mcg inhalation Q4H PRN allopurinol 100 mg PO DAILY 90 days ascorbic acid (vitamin C) 500 mg PO DAILY atorvastatin 1 tab DAILY blood sugar diagnostic (FreeStyle Lite Strips) As directed buspirone 1 tab PO TID clonazepam 1 tab PO BID PRN cyclobenzaprine 5 mg PO BID PRN 30 days divalproex ER 1,500 mg PO BEDTIME dulaglutide (Trulicity) 0.75 mg subcut QWEEK escitalopram oxalate 1 tab QAM fluoxetine 40 mg PO DAILY hydroxyzine pamoate 1 cap PO TID lisinopril 10 mg PO DAILY mirtazapine 15 mg PO BEDTIME montelukast 1 tab BEDTIME naproxen 500 mg PO BID PRN 7 days prazosin 2 caps PO BEDTIME pyridoxine (vitamin B6) 50 mg PO DAILY 90 days quetiapine 2 tabs PO BEDTIME tamsulosin 0.4 mg PO BEDTIME 14 days tamsulosin 0.4 mg PO BEDTIME 14 days tizanidine 2 mg PO TID PRN 30 days topiramate 1 tab BEDTIME tramadol 50 mg PO Q6H PRN HPI HPI Comments History of Present Illness Details Tejal is a pleasant 52-year-old Cook Islander-speaking female patient of Dr. Bryant. She has a past medical history of obesity, diabetes, asthma, hyperlipidemia, hypertension, and nephrolithiasis. She presents to the office today for follow-up of her nephrolithiasis. In discussion with the patient today she discuss at length following up with pain management here at [facility] for her ongoing back issues she has been experiencing. She reports recently having an MRI and is due to follow-up with pain management early next week. Recent renal imaging results reviewed with the patient today. Right kidney with no hydronephrosis. Benign-appearing renal cysts measuring 1.3 cm. No follow-up imaging is recommended per radiology report. 5 mm echogenic focus in the right lower pole may reflect a vascular reflector or nonobstructing stone. Left kidney with no calculi, lesions, and or hydronephrosis noted. In office urinalysis results reviewed with the patient today. When asked she does report noting intermittent episodes of dysuria over the last month. However, she reports relief of dysuria with [place]. She otherwise denies urinary urgency, urinary frequency, incontinence, nocturia, hematuria, foul smelling urine, changes to urinary stream, fever, and or chills. Prior intervention: Has been on topiramate for headaches - stones likely idiosyncratic to topiramate use Background diabetes Stone composition - 07/06 mixed - calcium oxalate dihydrate 40% and carbonate apatite 60% Imaging - 07/06 left mid ureter 8 mm, small stone s in right renal pelvis - 09/05 renal ultrasound left kidney jennifer r, 2 x 8 mm stones right kidney - 11/06 renal ultrasound left kidney jennifer red, 4 mm fragment on right side -04/09 renal ultrasound left kidney 6mm , right kidney 7mm nonobstructing stone. -02/06 renal ultrasound right kidney pos sible 5 mm nonobstructing stone. PFSH Medical History Morbid obesity Diabetes Asthma Hyperlipidemia Hypertension Kidney stones Surgical History S/P placement of nerve stimulator Hx of lithotripsy Hx of section Hx of colonoscopy Family History Mother Asthma Diabetes Hypertension Breast cancer Hypercholesteremia Hypothyroid Father Diabetes Hypercholesteremia Hypertension Heart abnormality Gangrene associated with diabetes mellitus FHx: cancer of prostate Sister Hypothyroid Diabetes Anemia Social History Household Members: Spouse Housing: Apartment Do you presently have visiting nurse or other home services: No Alcohol intake: never Patient Tobacco Use Status: Never used Tobacco Second Hand Smoke Exposure: No Advance Directives Date on File: 07/01/21 service: No Review of Systems Const Reports as per [facility] Eyes Reports no additional complaints ENT Reports no additional complaints Card Reports as per [facility] Resp Reports no additional complaints GI Reports no additional complaints Reports as per [facility] Musc Reports as per [facility] Neuro Reports no additional complaints Psych Reports no additional complaints Endo Reports as per HPI Brennan/Lymph Reports no additional complaints Aller/Immun Reports no additional complaints Physical Exam Const General: cooperative, comfortable, no acute distress, well developed, alert and awake Nutritional Appearance: overweight Orientation/consciousness: patient oriented x3 HEENT Head: Yes normal to inspection, Yes normocephalic and Yes atraumatic Ears: hearing grossly normal bilaterally Eyes General: appearance normal, both eyes and all related structures Neck Neck: Yes normal visual inspection and Yes trachea midline Chest Chest palpation & inspection: normal inspection of the chest Resp Effort & Inspection: normal respiratory effort and able to speak in complete sentences Cardio Rate: regular rate GI Inspection: Yes normal to inspection (round) General: Yes no CVA tenderness Back/Spine/Pelvis Back: no CVA tenderness Skin General skin exam: no rashes or lesions noted Neuro General: patient oriented x3 Extrem General: Yes normal to inspection Psych Appearance: grossly normal and well kempt Mental Status: mental status grossly normal Speech and movement: Normal speech and movement present and Clear speech present Affect: normal affect Attitude: cooperative Thought process: Normal thought process present Thought content: Normal thought content present Insight: Fair insight present (Psych) Judgement: Fair judgement present (Psych) Results AMB Urinalysis, Automated UA Leukoctes 70 Elaine/uL Last Edit by Acumen on 01/29/23 15:22 UA Nitrite Last Edit by Acumen on 01/29/23 15:22 UA Urobilinogen 0.2 mg/dL Last Edit by [employer] on 01/29/23 15:22 UA Protein 0 mg/dL Last Edit by [employer] on 01/29/23 15:22 UA pH 6.0 Last Edit by Ac[employer] on 01/29/23 15:22 UA Blood 0 Stanley/uL Last Edit by Acumen on 01/29/23 15:22 UA Specific [place] 1.025 Last Edit by Acumen on 01/29/23 15:22 UA Ketone Negative Last Edit by Isamar Nam on 01/29/23 15:22 UA Bilirubin 0 mg/dL Last Edit by Isamar Nam on 01/29/23 15:22 UA Glucose 0 mg/dL Last Edit by Isamar Nam on 01/29/23 15:22 Results Reviewed Results Reviewed: Laboratory Last Values Urine pH (Auto) 6.0 01/29/23 15:12 Specific [place] (Auto) 1.025 01/29/23 15:12 Urine Protein (Auto) 0 mg/dL 01/29/23 15:12 Glucose (UA)(Auto) 0 mg/dL 01/29/23 15:12 Urine Ketones (Auto) Negative 01/29/23 15:12 Urine Blood (Auto) 0 Stanley/uL 01/29/23 15:12 Urine Bilirubin (Auto) 0 mg/dL 01/29/23 15:12 Urine Urobilinogen (Auto) 0.2 mg/dL 01/29/23 15:12 Leukocyte Esterase (Auto) 70 Elaine/uL 01/29/23 15:12 Date of Service: 01/21/23 EXAMINATION: US RETROPERITONEAL LIMITED (RENAL ONLY) FINDINGS: RIGHT KIDNEY: 12.9 x 4.5 x 4.8 cm (SAG x AP x TRV). The kidney is normal in size, contour, and echogenicity. Renal cortical thickness is normal. No hydronephrosis. Benign-appearing renal cyst measuring 1.3 cm. No follow up imaging is recommended. 5 mm echogenic focus in the right lower pole without clinical or shadowing may reflect a vascular reflector though the differential consideration would include a nonobstructing stone. LEFT KIDNEY: 12.1 x 4.9 x 5.4 cm (SAG x AP x TRV). The kidney is normal in size, contour, and echogenicity. Renal cortical thickness is normal. No calculi or focal parenchymal lesions. No hydronephrosis. Echogenic focus without twinkle artifact or shadowing may reflect a vascular reflector. No definite nephrolithiasis. IMPRESSION: 5 mm echogenic focus in the right lower pole without clinical or shadowing may reflect a vascular reflector though the differential consideration would include a nonobstructing stone. Assessment & Plan Assessment & Plan (1) Dysuria: Code(s): R30.0 - Dysuria (2) Kidney stones: Comment: Mixed calcium oxalate Code(s): N20.0 - Calculus of kidney Plan In office urinalysis results reviewed with the patient today; as noted above; will send for urine culture. Recent renal imaging results reviewed with the patient today; as noted above. Start Macrobid as discussed and prescribed. Discussed, educated, encouraged on the importance of drinking plenty of water daily. Continue adding 1 oz of lemon juice to water daily. Continue vitamin B6 and allopurinol as prescribed Discussed at length importance of managing diabetes for improvement in lower urinary tract symptoms as well as overall health and well-being. Continue following up with pain management as planned. Follow-up in 3 months; or sooner with any issues, concerns, and or questions. Orders: Orders AMB Urinalysis Automated 01/29/23 Z13.9 - Encounter for screening, unspecified Urine Culture 01/29/23 Z13.9 - Encounter for screening, unspecified Medications: New nitrofurantoin macrocrystal 100 mg PO BID 20 caps 0RF 10 days R32 - Unspecified urinary incontinence Discontinued tamsulosin Discontinued Reason: Patient Completed Course 0.4 mg PO BEDTIME 14 caps 0RF 14 days tamsulosin Discontinued Reason: Patient Completed Course 0.4 mg PO BEDTIME 14 caps 0RF 14 days tramadol Discontinued Reason: Patient Completed Course 50 mg PO Q6H PRN 8 tabs 0RF pain (scale score 1-3) Patient Instructions: The patient had an opportunity to ask questions regarding the treatment plan. All questions were answered. Physical exam, labs, and imaging were discussed and reviewed in detail. As well as risks, benefits, and discussion of treatment choices. No major barriers to understanding were identified. The patient expressed understanding and agreement with the above treatment plan. The patient was made aware they should contact our office by phone for worsening of their current condition, the appearance of new symptoms, or with any questions or concerns. Compliance is encouraged with any medications and follow up testing that is ordered. It is a privilege to be allowed the opportunity to participate in? your urological care.? Again, if you have any questions or concerns If you have any questions or concerns please do not hesitate to contact me. The office is [phone]. This note is constructed using voice recognition software. While every effort has been made to ensure accuracy specialist physicians errors may have been included. Yours sincerely, Lynda Sepulveda, FACTORY MANAGER-BC Coding Level of Care Code Est Pt Level 4 (59136) Diagnoses Dysuria R30.0 Kidney stones N20.0
== END 2023-01-29 15:51 | disposition home or self-care (01) ==
PROVIDERS: Visit Provider Nurse Practitioner Family
DX: R30.0 Dysuria (principal); N20.0 Calculus of kidney
CPT/HCPCS: 99214

== ENCOUNTER 2023-01-29 14:12 | Outpatient (REF) | payer OTHER, SELFPAY | END 2023-01-29 14:13 | disposition home or self-care (01) | LOC: HO.LNP 14:12 | PROVIDERS: Visit Provider Nurse Practitioner Family | DX: R30.0 Dysuria (principal); N20.0 Calculus of kidney; Z79.899 Other long term (current) drug therapy | CPT/HCPCS: 81003; 87086; 99212 ==

== ENCOUNTER 2023-02-01 14:38 | Outpatient (AMB) | payer OTHER, SELFPAY ==
--- NOTE | 2023-02-01 14:40 | MHC.OFFVIS ---
Intake Vital Signs 02/01/23 14:43 Height 5 ft Weight 236 lb BMI 46.1 BP 146/90 H Blood Pressure Location Lt brachial Position Sitting Respiration 14 Pulse 104 H Pulse Source Pulse Oximeter Pulse Oximetry (%) 96 Oxygen Delivery Method Room Air Intake Visit Reasons: 1 Week Follow Up Allergies No Known Allergies [No Known Allergies*] Allergy (Verified 02/01/23 14:44) HPI HPI Comments History of Present Illness Details Ms. Tejal Goldstein is very pleasant Burmese-speaking morbidly obese female who is back in my office to discuss the results of MRI. On the MRI there are changes in the lower lumbar spine which could result in left-sided radiculopathy she corresponds to this patient's left-sided pain. I offered this patient transforaminal L5-S1 epidural steroid injection I will perform this procedure without sedation. Risks and benefits were explained very carefully to the patient, she is diabetic risk of he yatrogenic increase of the blood sugar was explained to the patient. Also side effects of the steroids resulting in osteoporosis were explained to the patient. Patient agreed to go for the procedure. Prior: She was a subject of multiple injections at [facility] and radiofrequency ablation at the [facility] which resulted at 8 months of the pain relief.? She came to this office and she received [employer] PNS attempted stimulation which resulted at fracture of the stimulating cable.? The auto service representative the [employer] because of the severe obesity of this patient could not guarantee that the repeating lozano of the procedure would not result in another fracture of the device.? She was asking me what can be offered to her today.? I recommended her most importantly to work on her weight loss.? She is currently engaged with bariatric program.? On 02/03/2022 she received therapeutic medial branch block L3-L4 does ramus L5.? She reported about 50% pain improvement, she reported better mobility and better activities of daily living.? PFSH Medical History Morbid obesity Diabetes Asthma Hyperlipidemia Hypertension Kidney stones Surgical History S/P placement of nerve stimulator Hx of lithotripsy Hx of section Hx of colonoscopy Family History Mother Asthma Diabetes Hypertension Breast cancer Hypercholesteremia Hypothyroid Father Diabetes Hypercholesteremia Hypertension Heart abnormality Gangrene associated with diabetes mellitus FHx: cancer of prostate Sister Hypothyroid Diabetes Anemia Social History Household Members: Spouse Housing: Apartment Do you presently have visiting nurse or other home services: No Alcohol intake: never Patient Tobacco Use Status: Never used Tobacco Second Hand Smoke Exposure: No Advance Directives Date on File: 07/01/21 service: No Review of Systems Const All systems reviewed & are unremarkable except as noted in HPI and below Physical Exam Const General: healthy appearing and no acute distress Resp Effort & Inspection: normal respiratory effort Auscultation: clear to auscultation bilaterally Cardio Rate: regular rate Rhythm: regular rhythm GI Auscultation: normal bowel sounds Back/Spine/Pelvis Other: Tenderness on palpation in paraspinal left and midline spinal region of the lumbar spine. SLR is positive on the left. [place] test is positive on the left as well. Extrem General: Yes normal to inspection Results Reviewed Results Reviewed: MR LUMBAR SPINE WITHOUT CONTRAST CLINICAL INFORMATION: Spondylosis. Low back pain and left leg pain COMPARISON: Lumbar radiographs 12/01/2015 TECHNIQUE: MRI of the lumbar spine was obtained using routine sequences without the administration of intravenous contrast. FINDINGS: This examination assumes the presence of 5 lumbar type vertebral bodies. For the purposes of this examination, the L5-S1 intervertebral disc space is visualized on axial series 7 image 23. The normal lumbar lordosis is preserved. No significant spondylolisthesis. Lumbar vertebral body heights are maintained. Multilevel degenerative endplate changes are noted including endplate edema along the inferior aspect of L4 and superior aspect of L5. Scattered intraosseous hemangiomas are noted. The conus medullaris and cauda equina nerve roots are unremarkable; the conus terminates at the level of L2. L1-L2: Facet arthropathy with ligamentum flavum redundancy. The spinal canal is patent. There is mild narrowing of the left neural foramen. L2-L3: No significant spinal canal stenosis. The neural foramen remain patent. Facet arthropathy. L3-L4: Facet arthropathy. The spinal canal and neural foramen are not significantly narrowed. L4-L5: Facet arthropathy. The spinal canal and neural foramen are not significantly narrowed. L5-S1: Small left foraminal disc protrusion. Facet arthropathy with ligamentum flavum redundancy. Early tapering of the thecal sac with prominent epidural fat. There is mild narrowing of the bilateral neural foramen with abutment of the exiting left L5 nerve root. Subcentimeter T2 hyperintense right renal lesion is too small to fully characterize but likely represents a cyst. Assessment & Plan Assessment & Plan (1) Spondylosis of lumbar spine: Code(s): M47.816 - Spondylosis without myelopathy or radiculopathy, lumbar region (2) Left hip pain: Code(s): M25.552 - Pain in left hip (3) Sacroiliac joint pain: Code(s): M53.3 - Sacrococcygeal disorders, not elsewhere classified (4) Muscle spasm: Code(s): M62.838 - Other muscle spasm (5) Disc degeneration, lumbar: Code(s): M51.36 - Other intervertebral disc degeneration, lumbar region (6) Radiculopathy, lumbar region: Code(s): M54.16 - Radiculopathy, lumbar region Plan [employer] stimulation was not successful for this patient. Her stimulating electrode was fractured and removed few days after insertion. Unfortunately the [employer] auto service representative cannot guarantee that this would not happen if patient would go for repeat of the procedure. Unfortunately I cannot offer her RFA because the longest needles here I am afraid will not be long enough to reach the target. Therapeutic medial branch block L3-L4 does ramus L5 resulted in 50% pain improvement which was performed on 02/05/2022. However following therapeutic injection performed in 07/14/2022 resulted in no pain improvement. The pain most likely is multifactorial, however this patient she started to develop new pain with radiation to the left lower extremity and cramping sensation in the left lower leg and foot. SLR and dorsiflexion of the left foot at maximal SLR result in pain increase in the back. She had MRI long time ago dictated as above. She went for MRI of the lumbar spine and results of MRI dictated as above. Combine with patient's history and complaints, the results of MRI may point to possibility of treating this pain with transforaminal L5-S1 left-sided epidural steroid injection. I will schedule this procedure accordingly. It will be done without sedation. Coding Level of Care Code Est Pt Level 3 (62862) Diagnoses Spondylosis of lumbar spine M47.816 Left hip pain M25.552 Sacroiliac joint pain M53.3 Muscle spasm M62.838 Disc degeneration, lumbar M51.36 Radiculopathy, lumbar region M54.16
[2023-02-01 14:43] VITALS: BP 146/90; PULSE 104; RESP 14; O2SAT 96; BMI 46.1
== END 2023-02-01 14:57 | disposition home or self-care (01) ==
PROVIDERS: PCP Internal Medicine; Visit Provider Anesthesiology
DX: M47.816 Spondylosis without myelopathy or radiculopathy, lumbar region (principal); M25.552 Pain in left hip; M53.3 Sacrococcygeal disorders, not elsewhere classified; M62.838 Other muscle spasm; M51.36 Other intervertebral disc degeneration, lumbar region; M54.16 Radiculopathy, lumbar region
CPT/HCPCS: 99213

== ENCOUNTER → 2023-02-01 14:38 | Outpatient (BNVA) | payer OTHER, SELFPAY | PROVIDERS: PCP Internal Medicine; Visit Provider Anesthesiology | DX: M47.816 Spondylosis without myelopathy or radiculopathy, lumbar region (principal); M25.552 Pain in left hip; M53.3 Sacrococcygeal disorders, not elsewhere classified; M62.838 Other muscle spasm; M51.36 Other intervertebral disc degeneration, lumbar region; M54.16 Radiculopathy, lumbar region | CPT/HCPCS: 99212 ==

== ENCOUNTER 2023-03-16 06:19 | Outpatient (REF) | payer OTHER, SELFPAY ==
--- NOTE | ~2023-03-16 | FL_ITS ---
EXAMINATION: XR FLUOROSCOPY WITH IMAGES CLINICAL INFORMATION: Lumbar radiculopathy. COMPARISON: Intraoperative fluoroscopy, most recently 07/14/2022; lumbar spine radiographs dated 12/01/2015. TECHNIQUE: Fluoroscopy Supervised By: Dr. Vero Juárez. Fluoroscopy Time: 0.2 minutes. Cumulative Dose: 16.1 mGy. DAP: 0.279 mGym2. Images: 1. FINDINGS: A spinal needle and injected contrast is seen in the vicinity of the left L1 neural foramen, with contrast present in the nerve sheath. FL/FL guidance in treatment room IMPRESSION: Intraoperative fluoroscopic guidance is provided during pain management procedure. Please see the patient's Operative Report for full procedural details.
== END 2023-03-16 06:20 | disposition home or self-care (01) ==
LOC: CF 06:19
PROVIDERS: Visit Provider Anesthesiology
DX: M47.26 Other spondylosis with radiculopathy, lumbar region (principal); M53.3 Sacrococcygeal disorders, not elsewhere classified; M62.838 Other muscle spasm; M51.36 Other intervertebral disc degeneration, lumbar region; M25.552 Pain in left hip
CPT/HCPCS: 64483; J3301; Q9967

== ENCOUNTER 2023-03-16 10:00 | Outpatient (AMB) | payer OTHER, SELFPAY ==
[2023-03-16 10:11] VITALS: BP 118/80; BP 124/88; PULSE 79; PULSE 82; RESP 16; O2SAT 97; O2SAT 98; BMI 46.1
--- NOTE | 2023-03-16 10:11 | A.OFFVIS_ITS ---
Intake Vital Signs 03/16/23 10:11 03/16/23 10:11 Height 5 ft 5 ft Weight 236 lb 236 lb BMI 46.1 46.1 BP 118/80 124/88 Blood Pressure Location Lt brachial Lt brachial Position Sitting Sitting Respiration 16 16 Pulse 79 82 Pulse Source Pulse Oximeter Pulse Oximeter Pulse Oximetry (%) 98 97 Oxygen Delivery Method Room Air Room Air Comment pre-op post-op Intake Visit Reasons: LEFT L5, S1 TFESI Allergies No Known Allergies [No Known Allergies*] Allergy (Verified 03/16/23 10:11) PFSH Medical History Morbid obesity Diabetes Asthma Hyperlipidemia Hypertension Kidney stones Surgical History S/P placement of nerve stimulator Hx of lithotripsy Hx of section Hx of colonoscopy Family History Mother Asthma Diabetes Hypertension Breast cancer Hypercholesteremia Hypothyroid Father Diabetes Hypercholesteremia Hypertension Heart abnormality Gangrene associated with diabetes mellitus FHx: cancer of prostate Sister Hypothyroid Diabetes Anemia Social History Household Members: Spouse Housing: Apartment Do you presently have visiting nurse or other home services: No Alcohol intake: never Patient Tobacco Use Status: Never used Tobacco Second Hand Smoke Exposure: No Advance Directives Date on File: 07/01/21 service: No Physical Exam Vital Signs: Last Vital Signs Pulse 82 03/16/23 10:11 Resp 16 03/16/23 10:11 BP 124/88 03/16/23 10:11 Pulse Ox 97 03/16/23 10:11 Oxygen Delivery Method Room Air 03/16/23 10:11 BMI result Body Mass Index 46.1 Assessment & Plan Assessment & Plan (1) Spondylosis of lumbar spine: Code(s): M47.816 - Spondylosis without myelopathy or radiculopathy, lumbar region Plan: Transforaminal left L5-S1 epidural steroid injection Informed consent was thoroughly explained to the patient before the procedure.? The patient came to the operating room.? He was positioned prone on operating table with a pillow under his abdomen.? Time-out was performed delineating corre ct site and side of the procedure, nature of the injection, name and date of of the patient. The lower back of the patient was prepped with ChloraPrep and draped with sterile utility towels.? C-arm was brought over the operating field and sq picture of L5 and S1 vertebra were demonstrated on the screen.? The left side was chosen as the side of the injection.? Tilting machine ipsilateral to the left at the level of L5 -S1 the most prominent picture of the left pedicle of L5 vertebra was obtained on the screen.? 3 mm below the level of the lowest point of the pedicle projection to the skin small amount of lidocaine 1% 3-4 cc was injected to anesthetize the skin.? After that 5 in 22 gauge Quincke point needle was inserted through the skin wheal and was advanced to were the L4-5 foramina on anterior posterior and oblique views intermittently.? When tip of the needle entered foramina projection on AP view injection of the contrast was performed demonstrating epidural and perineural spread of the contrast.? After that injection of the treatment medicine 4 cc of lidocaine 1% mixed with Kenalog 40 mg was injected into the foramina.? Injection of the contrast and injection of the treatment medicine was observed live on the screen.? No intrathecal and no intravascular spread of the contrast was noted. Upon completion of the procedure needle was removed and sterile Band-Aids were applied. Patient tolerated procedure well she was taken outside of the operating room where she recovered uneventfully.? She went home without immediate complications. (2) Left hip pain: Code(s): M25.552 - Pain in left hip (3) Sacroiliac joint pain: Code(s): M53.3 - Sacrococcygeal disorders, not elsewhere classified (4) Muscle spasm: Code(s): M62.838 - Other muscle spasm (5) Disc degeneration, lumbar: Code(s): M51.36 - Other intervertebral disc degeneration, lumbar region (6) Radiculopathy, lumbar region: Code(s): M54.16 - Radiculopathy, lumbar region Plan Sprint stimulation was not successful for this patient. Her stimulating electrode was fractured and removed few days after insertion. Unfortunately the [employer] patient intake representative cannot guarantee that this would not happen if patient would go for repeat of the procedure. Unfortunately I cannot offer her RFA because the longest needles here I am afraid will not be long enough to reach the target. Therapeutic medial branch block L3-L4 does ramus L5 resulted in 50% pain improvement which was performed on 02/05/2022. However following therapeutic injection performed in 07/14/2022 resulted in no pain improvement. The pain most likely is multifactorial, however this patient she started to develop new pain with radiation to the left lower extremity and cramping sensa tion in the left lower leg and foot. SLR and dorsiflexion of the left foot at maximal SLR result in pain increase in the back. She had MRI long time ago dictated as above. She went for MRI of the lumbar spine and results of MRI dictated as above. Combine with patient's history and complaints, the results of MRI may point to possibility of treating this pain with transforaminal L5-S1 left-sided epidural steroid injection. I will schedule this procedure accordingly. It will be done without sedation. Orders: Orders FL guidance in treatment room 03/16/23 M54.16 - Radiculopathy, lumbar region Coding Level of Care Code Procedure Only Diagnoses Spondylosis of lumbar spine M47.816 Left hip pain M25.552 Sacroiliac joint pain M53.3 Muscle spasm M62.838 Disc degeneration, lumbar M51.36 Radiculopathy, lumbar region M54.16
== END 2023-03-16 11:02 | disposition home or self-care (01) ==
LOC: HO.PMCPRC 10:00
PROVIDERS: PCP Internal Medicine; Visit Provider Anesthesiology
DX: M54.16 Radiculopathy, lumbar region (principal)
CPT/HCPCS: 64483

== ENCOUNTER 2023-04-12 13:50 | Outpatient (AMB) | payer OTHER, SELFPAY ==
--- NOTE | 2023-04-12 13:51 | A.OFFVIS_ITS ---
Intake Vital Signs 04/12/23 14:09 Height 5 ft Weight 246 lb 6 oz BMI 48.1 BP 140/90 H Blood Pressure Location Lt brachial Position Sitting Respiration 16 Pulse 102 H Pulse Source Pulse Oximeter Pulse Oximetry (%) 95 Oxygen Delivery Method Room Air Intake Visit Reasons: LEFT L5, S1 TFESI/03/16/23 Allergies No Known Allergies [No Known Allergies*] Allergy (Verified 04/12/23 14:09) HPI HPI Comments History of Present Illness Details Ms. Tejal Goldstein is very pleasant Romanian-speaking morbidly obese female who is back in my office after therapeutic transforaminal L5-S1 epidural steroid injection. Patient reported only 2 days of pain relief after the injection. She also stated that she was treated with steroid taper before the treatment with epidural steroid injection. This is very dangerous and very high doses of steroids yet those approaches did not help her pain. Due to severe morbid obesity of the neuromodulation could be cumbersome for this patient. In the past she had multiple injections and radiofrequency ablation at [facility]. She tried sprint PNS here and due to very high BMI she fractured her lead. This will be very difficult case to treat. I offered her conservative treatment. I prescribed her methocarbamol 750 mg t.i.d. to help her spastic sensations. I also recommended her to obtain nxzy-oha-sggkhwy magnesium glycinate and take it twice a day to help her spastic sensation in the left lower extremity. Treatment of this condition for the patient would have to be very carefully planned, ideally she may be better off losing at least 30% of her weight. Prior: She was a subject of multiple injections at [facility] and radiofrequency ablation at the [facility] which resulted at 8 months of the pain relief.? She came to this office and she received sprint PNS attempted stimulation which resulted at fracture of the stimulating cable.? The compliance representative dealer the [employer] because of the severe obesity of this patient could not guarantee that the repeating lozano of the procedure would not result in another fracture of the device.? She was asking me what can be offered to her today.? I recommended her most importantly to work on her weight loss.? She is currently engaged with bariatric program.? On 02/03/2022 she received therapeutic medial branch block L3-L4 does ramus L5.? She reported about 50% pain improvement, she reported better mobility and better activities of daily living.? [facility] Medical History Morbid obesity Diabetes Asthma Hyperlipidemia Hypertension Kidney stones Surgical History S/P placement of nerve stimulator Hx of lithotripsy Hx of section Hx of colonoscopy Family History Mother Asthma Diabetes Hypertension Breast cancer Hypercholesteremia Hypothyroid Father Diabetes Hypercholesteremia Hypertension Heart abnormality Gangrene associated with diabetes mellitus FHx: cancer of prostate Sister Hypothyroid Diabetes Anemia Social History Household Members: Spouse Housing: Apartment Do you presently have visiting nurse or other home services: No Alcohol intake: never Patient Tobacco Use Status: Never used Tobacco Second Hand Smoke Exposure: No Advance Directives Date on File: 07/01/21 service: No Review of Systems Const All systems reviewed & are unremarkable except as noted in HPI and below Physical Exam Vital Signs: Last Vital Signs Pulse 102 H 04/12/23 14:09 Resp 16 04/12/23 14:09 BP 140/90 H 04/12/23 14:09 Pulse Ox 95 04/12/23 14:09 Oxygen Delivery Method Room Air 04/12/23 14:09 BMI result Body Mass Index 48.1 Const General: healthy appearing and no acute distress Resp Effort & Inspection: normal respiratory effort Auscultation: clear to auscultation bilaterally Cardio Rate: regular rate Rhythm: regular rhythm GI Auscultation: normal bowel sounds Back/Spine/Pelvis Other: Tenderness on palpation in paraspinal left and midline spinal region of the lumbar spine. SLR is positive on the left. Lassegue test is positive on the left as well. Extrem General: Yes normal to inspection Results Reviewed Results Reviewed: MR LUMBAR SPINE WITHOUT CONTRAST CLINICAL INFORMATION: Spondylosis. Low back pain and left leg pain COMPARISON: Lumbar radiographs 12/01/2015 TECHNIQUE: MRI of the lumbar spine was obtained using routine sequences without the administration of intravenous contrast. FINDINGS: This examination assumes the presence of 5 lumbar type vertebral bodies. For the purposes of this examination, the L5-S1 intervertebral disc space is visualized on axial series 7 image 23. The normal lumbar lordosis is preserved. No significant spondylolisthesis. Lumbar vertebral body heights are maintained. Multilevel degenerative endplate changes are noted including endplate edema along the inferior aspect of L4 and superior aspect of L5. Scattered intraosseous hemangiomas are noted. The conus medullaris and cauda equina nerve roots are unremarkable; the conus terminates at the level of L2. L1-L2: Facet arthropathy with ligamentum flavum redundancy. The spinal canal is patent. There is mild narrowing of the left neural foramen. L2-L3: No significant spinal canal stenosis. The neural foramen remain patent. Facet arthropathy. L3-L4: Facet arthropathy. The spinal canal and neural foramen are not significantly narrowed. L4-L5: Facet arthropathy. The spinal canal and neural foramen are not significantly narrowed. L5-S1: Small left foraminal disc protrusion. Facet arthropathy with ligamentum flavum redundancy. Early tapering of the thecal sac with prominent epidural fat. There is mild narrowing of the bilateral neural foramen with abutment of the exiting left L5 nerve root. Subcentimeter T2 hyperintense right renal lesion is too small to fully characterize but likely represents a cyst. Assessment & Plan Assessment & Plan (1) Spondylosis of lumbar spine: Code(s): M47.816 - Spondylosis without myelopathy or radiculopathy, lumbar region (2) Left hip pain: Code(s): M25.552 - Pain in left hip (3) Sacroiliac joint pain: Code(s): M53.3 - Sacrococcygeal disorders, not elsewhere classified (4) Muscle spasm: Code(s): M62.838 - Other muscle spasm (5) Disc degeneration, lumbar: Code(s): M51.36 - Other intervertebral disc degeneration, lumbar region (6) Radiculopathy, lumbar region: Code(s): M54.16 - Radiculopathy, lumbar region Plan Sprint stimulation was not successful for this patient. Her stimulating electrode was fractured and removed few days after insertion. Unfortunately the sprint compliance representative dealer cannot guarantee that this would not happen if patient would go for repeat of the procedure. Unfortunately I cannot offer her RFA because the longest needles here I am afraid will not be long enough to reach the target. Therapeutic medial branch block L3-L4 does ramus L5 resulted in 50% pain improvement which was performed on 02/05/2022. However following therapeutic injection performed in 07/14/2022 resulted in no pain improvement. The pain most likely is multifactorial, however this patient she started to develop new pain with radiation to the left lower extremity and cramping sensation in the left lower leg and foot. SLR and dorsiflexion of the left foot at maximal SLR result in pain increase in the back. She had MRI long time ago dictated as above. She went for MRI of the lumbar spine and results of MRI dictated as above. Unfortunately transforaminal epidural steroid injection L5- S1 on the left side did not result in a good improvement of the pain. I offered patient conservative treatment. I offered her methocarbamol instead of her cyclobenzaprine and tizanidine in rather elevated doses of 750 mg. I also offered her to obtain over the counter magnesium glycinate intake it twice a day. No new appointment is necessary. I will continue with follow-up of this patient. Medications: New methocarbamol 750 mg PO TID 30 days PRN 90 tabs 8RF Muscle spasms Discontinued tizanidine Discontinued Reason: Doctor's Order 2 mg PO TID 30 days PRN 90 tabs 7RF muscle spasticity cyclobenzaprine Discontinued Reason: Doctor's Order 5 mg PO BID 30 days PRN 30 tabs 5RF for muscle spasm Coding Level of Care Code Est Pt Level 3 (99981) Diagnoses Spondylosis of lumbar spine M47.816 Left hip pain M25.552 Sacroiliac joint pain M53.3 Muscle spasm M62.838 Disc degeneration, lumbar M51.36 Radiculopathy, lumbar region M54.16
[2023-04-12 14:09] VITALS: BP 140/90; PULSE 102; RESP 16; O2SAT 95; BMI 48.1
== END 2023-04-12 14:10 | disposition home or self-care (01) ==
PROVIDERS: PCP Internal Medicine; Visit Provider Anesthesiology
DX: M47.816 Spondylosis without myelopathy or radiculopathy, lumbar region (principal); M25.552 Pain in left hip; M53.3 Sacrococcygeal disorders, not elsewhere classified; M62.838 Other muscle spasm; M51.36 Other intervertebral disc degeneration, lumbar region; M54.16 Radiculopathy, lumbar region
CPT/HCPCS: 99213

== ENCOUNTER → 2023-04-12 13:50 | Outpatient (BNVA) | payer OTHER, SELFPAY | PROVIDERS: PCP Internal Medicine; Visit Provider Anesthesiology | DX: M47.816 Spondylosis without myelopathy or radiculopathy, lumbar region (principal); M25.552 Pain in left hip; M53.3 Sacrococcygeal disorders, not elsewhere classified; M62.838 Other muscle spasm; M51.36 Other intervertebral disc degeneration, lumbar region; M54.16 Radiculopathy, lumbar region | CPT/HCPCS: 99212 ==

== ENCOUNTER 2023-08-25 08:29 | Outpatient (AMB) | payer OTHER, SELFPAY ==
--- NOTE | 2023-08-25 09:00 | MHC.OFFVIS ---
Vital Signs 08/25/23 09:23 Height 5 ft Weight 246 lb 2 oz BMI 48.1 BP 138/96 H Blood Pressure Location Lt radial Position Sitting Respiration 14 Pulse 92 Pulse Source Pulse Oximeter Pulse Oximetry (%) 95 Oxygen Delivery Method Room Air Intake Visit Reasons: discuss pain Intake Note: Patient comes in to discuss medication option and pain in lower back. Reports pain 09/24. Allergies No Known Allergies [No Known Allergies*] Allergy (Verified 08/25/23 09:25) HPI Comments Details: Ms. Tejal Goldstein is back in my office with continued complain on pain mostly on the right side of the lower back with spastic sensation in the lower back and radiation of the pain up until the level of the right-sided chest. Multiple injections were tried for this patient. Medial branches were moderately successful however because of her obesity radiofrequency ablation would be very difficult. Transforaminal epidural steroid injections and high doses of steroids resulted in no pain improvement. NSAIDs resulted in no pain improvement. Physical therapy applied multiple times resulted in no improvement. Patient tried multiple different medications to help her pain: She tried cyclobenzaprine which helps her pain moderately however she could not continue it chronically in combination with her psychiatric medications, she tried methocarbamol which did not help her pain. She tried high doses of the ibuprofen which helped her pain moderately but it is not feasible to continue this high doses of the NSAIDs. She was told to lose weight and she lost almost 55 lb and she states nevertheless that her pain is not affected by the weight loss. We tried sprint PNS for this patient and although the device gave her moderate pain relief, the electrode unfortunately was fractured and the stimulation was lost. We discussed the situation at hands. I offered her to try baclofen instead of methocarbamol. I also explained to her chronic opioid therapy but noted that the balance of the risks and benefits of chronic opioid therapy would not be favorable for her. She is morbidly obese and was diagnosed with obstructive sleep apnea in the past. She is also taking multiple medications which can interact with opioids. We discussed pain pump Intrathecal drug delivery system today. She has psychologist and psychiatrist. If psychologist and psychiatrist will be able to give us clearance for the procedure we can start trailing her with non opioid medications such as baclofen, bupivacaine, clonidine. Prior: very pleasant Latvian-speaking morbidly obese female who is back in my office after therapeutic transforaminal L5-S1 epidural steroid injection. Patient reported only 2 days of pain relief after the injection. She also stated that she was treated with steroid taper before the treatment with epidural steroid injection. This is very dangerous and very high doses of steroids yet those approaches did not help her pain. Due to severe morbid obesity of the neuromodulation could be cumbersome for this patient. In the past she had multiple injections and radiofrequency ablation at [facility]. She tried sprint PNS here and due to very high BMI she fractured her lead. This will be very difficult case to treat. I offered her conservative treatment. I prescribed her methocarbamol 750 mg t.i.d. to help her spastic sensations. I also recommended her to obtain htiy-aas-xumyode magnesium glycinate and take it twice a day to help her spastic sensation in the left lower extremity. Treatment of this condition for the patient would have to be very carefully planned, ideally she may be better off losing at least 30% of her weight. She was a subject of multiple injections at [facility] and radiofrequency ablation at the [facility] which resulted at 8 months of the pain relief.? She came to this office and she received sprint PNS attempted stimulation which resulted at fracture of the stimulating cable.? The customer success representative the [employer] because of the severe obesity of this patient could not guarantee that the repeating lozano of the procedure would not result in another fracture of the device.? She was asking me what can be offered to her today.? I recommended her most importantly to work on her weight loss.? She is currently engaged with bariatric program.? On 02/03/2022 she received therapeutic medial branch block L3-L4 does ramus L5.? She reported about 50% pain improvement, she reported better mobility and better activities of daily living.? [facility] Medical History Morbid obesity Diabetes Asthma Hyperlipidemia Hypertension Kidney stones Surgical History S/P placement of nerve stimulator Hx of lithotripsy Hx of section Hx of colonoscopy Family History Mother Asthma Diabetes Hypertension Breast cancer Hypercholesteremia Hypothyroid Father Diabetes Hypercholesteremia Hypertension Heart abnormality Gangrene associated with diabetes mellitus FHx: cancer of prostate Sister Hypothyroid Diabetes Anemia Social History Household Members: Spouse Housing: Apartment Do you presently have visiting nurse or other home services: No Alcohol intake: never Patient Tobacco Use Status: Never used Tobacco Second Hand Smoke Exposure: No Advance Directives Date on File: 07/01/21 service: No Review of Systems Const All systems reviewed & are unremarkable except as noted in HPI and below Physical Exam Vital Signs: Last Vital Signs Pulse 92 08/25/23 09:23 Resp 14 08/25/23 09:23 BP 138/96 H 08/25/23 09:23 Pulse Ox 95 08/25/23 09:23 Oxygen Delivery Method Room Air 08/25/23 09:23 BMI result Body Mass Index 48.1 Const General: healthy appearing and no acute distress Resp Effort & Inspection: normal respiratory effort Auscultation: clear to auscultation bilaterally Cardio Rate: regular rate Rhythm: regular rhythm GI Auscultation: normal bowel sounds Back/Spine/Pelvis Other: Tenderness on palpation in paraspinal left and midline spinal region of the lumbar spine. SLR is positive on the left. Lassegue test is positive on the left as well. Extrem General: Yes normal to inspection Assessment & Plan Assessment & Plan (1) Spondylosis of lumbar spine: Code(s): M47.816 - Spondylosis without myelopathy or radiculopathy, lumbar region Category: Medical (2) Left hip pain: Code(s): M25.552 - Pain in left hip Category: Medical (3) Sacroiliac joint pain: Code(s): M53.3 - Sacrococcygeal disorders, not elsewhere classified Category: Medical (4) Muscle spasm: Code(s): M62.838 - Other muscle spasm Category: Medical (5) Disc degeneration, lumbar: Code(s): M51.36 - Other intervertebral disc degeneration, lumbar region Category: Medical (6) Radiculopathy, lumbar region: Code(s): M54.16 - Radiculopathy, lumbar region Category: Medical Plan Sprint stimulation was not successful for this patient. Her stimulating electrode was fractured and removed few days after insertion. Unfortunately the [employer] customer success representative cannot guarantee that this would not happen if patient would go for repeat of the procedure. Unfortunately I cannot offer her RFA because the longest needles here I am afraid will not be long enough to reach the target. Therapeutic medial branch block L3-L4 does ramus L5 resulted in 50% pain improvement which was performed on 02/05/2022. However following therapeutic injection performed in 07/14/2022 resulted in no pain improvement. Transforaminal epidural steroid injections resulted in no pain improvement. Multiple sessions of physical therapy resulted in no improvement. Multiple medications discussed as above resulted in no improvement. Pain pump was discussed today. Baclofen seem to be appropriate medication maybe in combination with bupivacaine. She needs to go for the psychological evaluation. If this will be provided by her psychiatrist physician or her psychologist they would be most beneficial and would not require us to send her to [facility] where she would have to pay up to 100 dollars of co-pay. Once we have the clearance from psychiatry can start scheduling her for pain pump trials. We will start with bupivacaine. If it is not effective we will switch to baclofen trial.. To see if there is no side effects on baclofen I would start her orally on baclofen 10 mg t.i.d.. I explained to the patient that if baclofen makes her dizzy sleepy or drowsy, I recommend to take 1-1/2-2 pills at night, and split the last daily dose by half during the daytime. Medications: New baclofen 10 mg PO TID 90 tabs 6RF 30 days Discontinued methocarbamol Discontinued Reason: Doctor's Order 750 mg PO TID 30 days PRN 90 tabs 8RF Muscle spasms Patient Instructions: I here by testify that I spent 38 minutes in conversation with this patient as well as planning her care and organizing this note. Lindsay Goldstein our airframe technical officer who is certified machine stripper cutter helped us to maintain this conversation in Latvian. Coding Level of Care Code Est Pt Level 4 (13898) Diagnoses Spondylosis of lumbar spine M47.816 Left hip pain M25.552 Sacroiliac joint pain M53.3 Muscle spasm M62.838 Disc degeneration, lumbar M51.36 Radiculopathy, lumbar region M54.16
[2023-08-25 09:23] VITALS: BP 138/96; PULSE 92; RESP 14; O2SAT 95; BMI 48.1
== END 2023-08-25 09:55 | disposition home or self-care (01) ==
PROVIDERS: PCP Internal Medicine; Visit Provider Anesthesiology
DX: M47.816 Spondylosis without myelopathy or radiculopathy, lumbar region (principal); M25.552 Pain in left hip; M53.3 Sacrococcygeal disorders, not elsewhere classified; M62.838 Other muscle spasm; M51.36 Other intervertebral disc degeneration, lumbar region; M54.16 Radiculopathy, lumbar region
CPT/HCPCS: 99214

== ENCOUNTER → 2023-08-25 08:29 | Outpatient (BNVA) | payer OTHER, SELFPAY | PROVIDERS: PCP Internal Medicine; Visit Provider Anesthesiology | DX: M47.26 Other spondylosis with radiculopathy, lumbar region (principal); M25.552 Pain in left hip; M53.3 Sacrococcygeal disorders, not elsewhere classified; M62.838 Other muscle spasm; M51.36 Other intervertebral disc degeneration, lumbar region | CPT/HCPCS: 99212 ==

== ENCOUNTER 2024-01-19 11:17 | Outpatient (AMB) | payer OTHER, SELFPAY ==
[2024-01-19 11:26] VITALS: BP 136/86; PULSE 79; RESP 17; O2SAT 95; BMI 45.7
--- NOTE | 2024-01-19 11:26 | MHC.OFFVIS ---
Vital Signs 01/19/24 11:26 Height 5 ft Weight 234 lb 4 oz BMI 45.7 BP 136/86 Blood Pressure Location Lt brachial Position Sitting Respiration 17 Pulse 79 Pulse Source Pulse Oximeter Pulse Oximetry (%) 95 Oxygen Delivery Method Room Air Intake Visit Reasons: Discuss Medication Intake Note: Patient comes in to discuss medication. She is accompanied by LEOBARDO Pro. Reports pain 10/10. Bearing Machine Operator Required: Yes Bearing Machine Operator Services: Bearing Machine Operator Offered & Declined Bearing Machine Operator Name: LEOBARDO Pro Allergies No Known Allergies [No Known Allergies*] Allergy (Verified 01/19/24 11:28) HPI Comments Details: Ms. Tejal Goldstein is back in my office to discuss further treatment. Sprint stimulation was not successful for this patient. Her stimulating electrode was fractured and removed few days after insertion. The procedure is not recommended to repeat by [employer] player services representative due to high body mass. Unfortunately I cannot offer her RFA because the longest needles here I am afraid will not be long enough to reach the target. Therapeutic medial branch block L3-L4 does ramus L5 done on 02/05/2022 resulted in 50% pain improvement . However following therapeutic injection performed in 07/14/2022 resulted in no pain improvement. Transforaminal epidural steroid injections resulted in no pain improvement. Multiple sessions of physical therapy resulted in no improvement. Multiple medications including NSAIDs resulted in no improvement. Pain pump was discussed. Baclofen seem to be appropriate medication maybe in combination with bupivacaine. We still awaiting for psychological evaluation from her own psychologist or psychiatrist because she can not afford the payment of 100 dollars co-pay to [facility]. The patient received today again the formulation of the statement the psychologist need to submit to us to allow us to do pain pump trial. [facility] Medical History Morbid obesity Diabetes Asthma Hyperlipidemia Hypertension Kidney stones Surgical History S/P placement of nerve stimulator Hx of lithotripsy Hx of section Hx of colonoscopy Family History Mother Asthma Diabetes Hypertension Breast cancer Hypercholesteremia Hypothyroid Father Diabetes Hypercholesteremia Hypertension Heart abnormality Gangrene associated with diabetes mellitus FHx: cancer of prostate Sister Hypothyroid Diabetes Anemia Social History Household Members: Spouse Housing: Apartment Do you presently have visiting nurse or other home services: No Alcohol intake: never Patient Tobacco Use Status: Never used Tobacco Second Hand Smoke Exposure: No Advance Directives Date on File: 07/01/21 service: No Review of Systems Const All systems reviewed & are unremarkable except as noted in HPI and below Physical Exam Vital Signs: Last Vital Signs Pulse 79 01/19/24 11:26 Resp 17 01/19/24 11:26 BP 136/86 01/19/24 11:26 Pulse Ox 95 01/19/24 11:26 Oxygen Delivery Method Room Air 01/19/24 11:26 BMI result Body Mass Index 45.7 Const General: healthy appearing and no acute distress Resp Effort & Inspection: normal respiratory effort Auscultation: clear to auscultation bilaterally Cardio Rate: regular rate Rhythm: regular rhythm GI Auscultation: normal bowel sounds Back/Spine/Pelvis Other: Tenderness on palpation in paraspinal left and midline spinal region of the lumbar spine. SLR is positive on the left. Lassegue test is positive on the left as well. Extrem General: Yes normal to inspection Assessment & Plan Assessment & Plan (1) Spondylosis of lumbar spine: Code(s): M47.816 - Spondylosis without myelopathy or radiculopathy, lumbar region Category: Medical (2) Left hip pain: Code(s): M25.552 - Pain in left hip Category: Medical (3) Sacroiliac joint pain: Code(s): M53.3 - Sacrococcygeal disorders, not elsewhere classified Category: Medical (4) Muscle spasm: Code(s): M62.838 - Other muscle spasm Category: Medical (5) Disc degeneration, lumbar: Code(s): M51.36 - Other intervertebral disc degeneration, lumbar region Category: Medical (6) Radiculopathy, lumbar region: Code(s): M54.16 - Radiculopathy, lumbar region Category: Medical Plan Sprint stimulation was not successful for this patient. Her stimulating electrode was fractured and removed few days after insertion. Unfortunately the [employer] player services representative cannot guarantee that this would not happen if patient would go for repeat of the procedure. Unfortunately I cannot offer her RFA because the longest needles here I am afraid will not be long enough to reach the target. Therapeutic medial branch block L3-L4 does ramus L5 resulted in 50% pain improvement which was performed on 02/05/2022. However following therapeutic injection performed in 07/14/2022 resulted in no pain improvement. Transforaminal epidural steroid injections resulted in no pain improvement. Multiple sessions of physical therapy resulted in no improvement. Multiple medications discussed as above resulted in no improvement. Pain pump was discussed. Baclofen seem to be appropriate medication maybe in combination with bupivacaine. She still did not go for psychological evaluation. She relies on her own psychologist/psychiatrist to perform psychological evaluation. If it will receive the information from her psychologist about approval we will do a trial of a pain pump with bupivacaine. If this is not effective with switch to baclofen trial. She is stating that baclofen oral which I prescribed her last time was effective for her for a while but now it stopped ineffectiveness. I decided to increase the dose of the baclofen making it 20 mg TID. Medications: New baclofen 20 mg PO TID 30 days PRN 90 tabs 8RF Spasticity Discontinued baclofen Discontinued Reason: Doctor's Order 10 mg PO TID 30 days 90 tabs 6RF Coding Level of Care Code Est Pt Level 3 (64824) Diagnoses Spondylosis of lumbar spine M47.816 Left hip pain M25.552 Sacroiliac joint pain M53.3 Muscle spasm M62.838 Disc degeneration, lumbar M51.36 Radiculopathy, lumbar region M54.16
== END 2024-01-19 11:42 | disposition home or self-care (01) ==
PROVIDERS: PCP Internal Medicine; Visit Provider Anesthesiology
DX: M47.816 Spondylosis without myelopathy or radiculopathy, lumbar region (principal); M25.552 Pain in left hip; M53.3 Sacrococcygeal disorders, not elsewhere classified; M62.838 Other muscle spasm; M51.369 Other intervertebral disc degeneration, lumbar region without mention of lumbar back pain or lower extremity pain; M54.16 Radiculopathy, lumbar region
CPT/HCPCS: 99213

== ENCOUNTER → 2024-01-19 11:17 | Outpatient (BNVA) | payer OTHER, SELFPAY | PROVIDERS: PCP Internal Medicine; Visit Provider Anesthesiology | DX: M47.816 Spondylosis without myelopathy or radiculopathy, lumbar region (principal); M25.552 Pain in left hip; M53.3 Sacrococcygeal disorders, not elsewhere classified; M62.838 Other muscle spasm; M51.360 Other intervertebral disc degeneration, lumbar region with discogenic back pain only; M54.16 Radiculopathy, lumbar region | CPT/HCPCS: 99212 ==

== ENCOUNTER 2024-08-24 09:42 | Outpatient (AMB) | payer OTHER, SELFPAY ==
[2024-08-24 09:49] VITALS: BP 145/83; PULSE 66; RESP 18; O2SAT 98
--- NOTE | 2024-08-24 09:49 | MHC.OFFVIS ---
Vital Signs 08/24/24 09:49 Weight 240 lb BP 145/83 H Blood Pressure Location Lt brachial Position Sitting Respiration 18 Pulse 66 Pulse Source Pulse Oximeter Pulse Oximetry (%) 98 Oxygen Delivery Method Room Air Intake Visit Reasons: Follow Up/Discuss Pain Pump Allergies No Known Allergies (No Known Allergies*) Allergy (Verified 08/24/24 09:48) Do you need a note to return to daycare/school/sports/work: No HPI Comments Details: Ms. Tejal Goldstein is back in my office to discuss further treatment. Unfortunately psychological evaluation was not properly performed for this patient. It looks like that the primary care office re-fax to us the paperwork she was submitted for bariatric surgery program. We need to receive proper formulation letter from [facility]. We will recommend the patient to go to [facility] facility to receive this evaluation.([facility] have walking option for the patient.) Sprint stimulation was not successful for this patient. Her stimulating electrode was fractured and removed few days after insertion. The procedure is not recommended to repeat by [employer] personal banking representative due to high body mass. Unfortunately I cannot offer her RFA because the longest needles here I am afraid will not be long enough to reach the target. Therapeutic medial branch block L3-L4 does ramus L5 done on 02/05/2022 resulted in 50% pain improvement . However following therapeutic injection performed in 07/14/2022 resulted in no pain improvement. Transforaminal epidural steroid injections resulted in no pain improvement. Multiple sessions of physical therapy resulted in no improvement. Multiple medications including NSAIDs resulted in no improvement. Pain pump was discussed. Baclofen seem to be appropriate medication maybe in combination with bupivacaine. We still awaiting for psychological evaluation from her own psychologist or psychiatrist because she can not afford the payment of 100 dollars co-pay to [facility]. The patient received today again the formulation of the statement the psychologist need to submit to us to allow us to do pain pump trial. [facility] Medical History Morbid obesity Diabetes Asthma Hyperlipidemia Hypertension Kidney stones Surgical History S/P placement of nerve stimulator Hx of lithotripsy Hx of section Hx of colonoscopy Family History Mother Asthma Diabetes Hypertension Breast cancer Hypercholesteremia Hypothyroid Father Diabetes Hypercholesteremia Hypertension Heart abnormality Gangrene associated with diabetes mellitus FHx: cancer of prostate Sister Hypothyroid Diabetes Anemia Social History Household Members: Spouse Housing: Apartment Do you presently have visiting nurse or other home services: No Alcohol intake: never Patient Tobacco Use Status: Never used Tobacco Second Hand Smoke Exposure: No Advance Directives Date on File: 07/01/21 service: No Review of Systems Const All systems reviewed & are unremarkable except as noted in HPI and below Physical Exam Vital Signs: Last Vital Signs Pulse 66 08/24/24 09:49 Resp 18 08/24/24 09:49 BP 145/83 H 08/24/24 09:49 Pulse Ox 98 08/24/24 09:49 Oxygen Delivery Method Room Air 08/24/24 09:49 Const General: healthy appearing and no acute distress Resp Effort & Inspection: normal respiratory effort Auscultation: clear to auscultation bilaterally Cardio Rate: regular rate Rhythm: regular rhythm GI Auscultation: normal bowel sounds Back/Spine/Pelvis Other: Tenderness on palpation in paraspinal left and midline spinal region of the lumbar spine. SLR is positive on the left. Lassegue test is positive on the left as well. Extrem General: Yes normal to inspection Assessment & Plan Assessment & Plan (1) Spondylosis of lumbar spine: Code(s): M47.816 - Spondylosis without myelopathy or radiculopathy, lumbar region Category: Medical (2) Left hip pain: Code(s): M25.552 - Pain in left hip Category: Medical (3) Sacroiliac joint pain: Code(s): M53.3 - Sacrococcygeal disorders, not elsewhere classified Category: Medical (4) Muscle spasm: Code(s): M62.838 - Other muscle spasm Category: Medical (5) Disc degeneration, lumbar: Code(s): M51.36 - Other intervertebral disc degeneration, lumbar region Category: Medical (6) Radiculopathy, lumbar region: Code(s): M54.16 - Radiculopathy, lumbar region Category: Medical Plan Sprint stimulation was not successful for this patient. Her stimulating electrode was fractured and removed few days after insertion. Unfortunately the [employer] personal banking representative cannot guarantee that this would not happen if patient would go for repeat of the procedure. Unfortunately I cannot offer her RFA because the longest needles here I am afraid will not be long enough to reach the target. Therapeutic medial branch block L3-L4 does ramus L5 resulted in 50% pain improvement which was performed on 02/05/2022. However following therapeutic injection performed in 07/14/2022 resulted in no pain improvement. Transforaminal epidural steroid injections resulted in no pain improvement. Multiple sessions of physical therapy resulted in no improvement. Multiple medications discussed as above resulted in no improvement. Pain pump was discussed. Baclofen seem to be appropriate medication maybe in combination with bupivacaine. She still did not go for psychological evaluation. She relies on her own psychologist/psychiatrist to perform psychological evaluation. If it will receive the information from her psychologist about approval we will do a trial of a pain pump with bupivacaine. If this is not effective with switch to baclofen trial. I recommend her to continue baclofen 20 mg t.i.d.. Coding Level of Care Code Est Pt Level 3 (08866) Diagnoses Spondylosis of lumbar spine M47.816 Left hip pain M25.552 Sacroiliac joint pain M53.3 Muscle spasm M62.838 Disc degeneration, lumbar M51.36 Radiculopathy, lumbar region M54.16
--- OUTSIDE RECORDS SUMMARY | 2024-08-24 10:13 | XMS_ITS | Clinical Summary ---
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 retrieval were complete. Estimated blood loss was minimal. A 7 mm polyp was found in the transverse colon. The polyp was sessile. The polyp was removed with a cold snare. Resection and retrieval were complete. Estimated blood loss was minimal. The exam was otherwise without abnormality on direct and retroflexion views. Procedure Code(s): --- Professional --- 16796, Colonoscopy, flexible; with removal of tumor(s), polyp(s), or other lesion(s) by snare technique [id number], 59, Colonoscopy, flexible; with biopsy, single or multiple Diagnosis Code(s): --- Professional --- D12.3, Benign neoplasm of transverse colon (hepatic flexure or splenic flexure) D12.5, Benign neoplasm of sigmoid colon K64.9, Unspecified hemorrhoids Z12.11, Encounter for screening for malignant neoplasm of colon CPT copyright 2020 [employer]. All rights reserved. The codes documented in this report are preliminary and upon medical biller/coder review may be revised to meet current compliance requirements. JOSH Arce DO 02/17/2024 1:18:44 PM This report has been signed electronically.Josh Arce DO Number of Addenda: 0 Note Initiated On: 02/17/2024 12:23 PM Scope Withdrawal Time: 0 hours 12 minutes 15 seconds Scope In: 1:00:04 PM Scope Out: 1:16:41 PM Endoscopy Department at - [address] [place] [id number] Procedure Note Josh Arce DO - 02/17/2024 GI Patient Name: Sam Goldstein Procedure Date: 02/17/2024 12:23 PM Date of : 1970 Age: 53 Gender: Female Note Status: Finalized Attending MD: Josh Arce DO, [id number] Procedure Date No Time: 02/17/2024 Procedure: Colonoscopy Indications: Screening for colorectal malignant neoplasm Providers: Josh Arce DO Referring MD: Leonie arzola MD Medicines: Monitored Anesthesia Care Complications: No immediate complications. Estimated blood loss: Minimal. Estimated Blood Loss: Estimated blood loss was minimal. Procedure: Pre-Anesthesia Assessment: - - Prior to the procedure, a History and Physicalwas performed, and patient medications and allergieswere reviewed. The patient is competent. The risks and benefits of the procedure and the sedation optionsand risks were discussed with the patient. Allquestions were answered and informed consent was obtained. Patient identification and proposed procedure were verified by the physician, the nurse, the anesthesiologist, the presales consultant and thetechnician in the pre-procedure area in the endoscopy suite. Mental Status Examination: alert and oriented.Airway Examination: normal oropharyngeal airway and neck mobility. Respiratory Examination: clear to auscultation. CV Examination: normal. Prophylactic Antibiotics: The patient does not requireprophylactic antibiotics. Prior Anticoagulants: The patient has taken no anticoagulant or antiplatelet agents. ASA Grade Assessment: II - A patient with severesystemic disease. After reviewing the risks and benefits,the patient was deemed in satisfactory condition to undergo the procedure. The anesthesia plan was touse monitored anesthesia care (MAC). Immediately priorto administration of medications, the patient was re-assessed for adequacy to receive sedatives. The heart rate, respiratory rate, oxygen saturations, blood pressure, adequacy of pulmonary ventilation,and response to care were monitored throughout the procedure. The physical status of the patient was re-assessed after the procedure. After I obtained informed consent, the scope was passed under direct vision. Throughout theprocedure, the patient's blood pressure, pulse, and oxygen saturations were monitored continuously. TheOlympus Pediatric Colonoscope was introduced through theanus and advanced to the cecum, identified byappendiceal orifice and ileocecal valve. The colonoscopy was performed without difficulty. The patient tolerated the procedure well. The quality of the bowel preparation was good. Findings: Hemorrhoids were found on perianal exam. A 3 mm polyp was found in the sigmoid colon. Thepolyp was sessile. The polyp was removed with a jumbocold forceps. Resection and retrieval were complete. Estimated blood loss was minimal. A 7 mm polyp was found in the transverse colon. The polyp was sessile. The polyp was removed with acold snare. Resection and retrieval were complete. Estimated blood loss was minimal. The exam was otherwise without abnormality ondirect and retroflexion views. Procedure Code(s): --- Professional --- 25157, Colonoscopy, flexible; with removal of tumor(s), polyp(s), or other lesion(s) by snare technique [id number], 59, Colonoscopy, flexible; with biopsy,single or multiple Diagnosis Code(s): --- Professional --- D12.3, Benign neoplasm of transverse colon (hepatic flexure or splenic flexure) D12.5, Benign neoplasm of sigmoid colon K64.9, Unspecified hemorrhoids Z12.11, Encounter for screening for malignantneoplasm of colon CPT copyright 2020 [employer]. All rights reserved. The codes documented in this report are preliminary and upon medical biller/coder reviewmay be revised to meet current compliance requirements. JOSH Arce DO 02/17/2024 1:18:44 PM This report has been signed electronically.Josh Arce DO Number of Addenda: 0 Note Initiated On: 02/17/2024 12:23 PM Scope Withdrawal Time: 0 hours 12 minutes 15 seconds Scope In: 1:00:04 PM Scope Out: 1:16:41 PM Endoscopy Department at - [address] [place] [phone] IMPRESSION: - Hemorrhoids found on perianal exam. - One 3 mm polyp in the sigmoid colon, removed witha jumbo cold forceps. Resected and retrieved. - One 7 mm polyp in the transverse colon, removedwith a cold snare. Resected and retrieved. - The examination was otherwise normal on directand retroflexion views. Recommendation: - - Discharge patient to home. - High fiber diet. - Continue present medications. - Await pathology results. - Repeat colonoscopy for surveillance based on pathology results. Toñito Johnson MD GI~PROCEDURE ORDERABLES Final Re sult * Lipid panel (10/11/2023) Pathologist [facility] LDL/HDL Ratio 4 0 - 4 Triglycerides 145 0 - 150 mg/dL Cholesterol 150 0 - 200 mg/dL HDL 40 >=40 mg/dL LDL Cholesterol 81 0 - 100 mg/dL Blood Venous blood specimen / Unknown Result [facility] Historical Provider LAB BLOOD ORDERABLES Priscilla l Result * Diabetes Foot Exam (09/10/2023) Pathologist [facility] Diabetes: Annual Foot Exam Abstracted Historical Provider HEALTH MAINTENANCE Final Result * Urine Albumin Creatinine Ratio (05/06/2023) Pathologist [facility] Urine Albumin Creatinine Ratio Abstracted Historical Provider HEALTH MAINTENANCE Final Result * SUNSHINE SCREENING DIGITAL (04/15/2023 12:46 PM EST) Anatomical Region Laterality Modality Mammography 04/15/2023 8:21 AM EST Narrative 04/15/2023 12:46 PM EST [facility] Diagnostic Imaging Department [address] [place] [id number] Patient: SAM GOLDSTEIN /Age/Sex: 1970 - 52 - F Unit#: [id number] Location/Status: SPDIMAM/REG CLI Mnemonic/Ordering Site: [facility] Ordering Physician: LEONIE BEAL Sunshine Screening Digital - 04/15/23 - 0854 Report Status:Signed EXAM: [facility] Screening Digital EXAM DATE AND TIME: 04/15/2023 8:55 AM HISTORY: Screening. Mother had breast carcinoma at age 74. Patient's uncle also had breast carcinoma. COMPARISON: , 07/28/19, 08/15/13 TECHNIQUE: Bilateral digital breast tomosynthesis was performed in the CC and MLO projections. Computer aided detection with Lookwider 3D 3.1 was employed. TISSUE DENSITY: a. The breasts are almost entirely fatty. FINDINGS: No suspicious masses, grouped microcalcifications, or areas of architectural distortion are seen. The skin and vascularity are unremarkable. IMPRESSION: Stable mammographic appearance of the breasts. No evidence of malignancy is seen. A negative mammogram in the presence of a clinically suspicious palpable abnormality does not preclude the possibility of malignancy or alter the indications for biopsy. BI-RADS: Category 1: Negative RECOMMENDATION(S): 1: Routine screening mammogram BILATERAL in 1 year. Dictating Physician: LIN HERNANDEZ MD Electronically Signed by: LIN HERNANDEZ MD Dic Date/Time: 04/15/23 1245 Sign date/Time: 04/15/23 1246 Procedure Note Lin Hernandez MD - 10/04/2023 [facility] Diagnostic Imaging Department [address] [place] [address] [id number] Patient: SAM GOLDSTEIN /Age/Sex: 1970 - 52 - F Unit#: [id number] Location/Status: SPDIMAM/REG CLI Mnemonic/Ordering Site: [facility] Ordering Physician: LEONIE BEAL [facility] Screening Digital - 04/15/23 - 0854 Report Status:Signed EXAM: [facility] Screening Digital EXAM DATE AND TIME: 04/15/2023 8:55 AM HISTORY: Screening. Mother had breast carcinoma at age 74. Patient'suncle also had breast carcinoma. COMPARISON: , 07/28/19, 08/15/13 TECHNIQUE: Bilateral digital breast tomosynthesis was performed in the CCand MLO projections. Computer aided detection with Lookwider 3D 3.1was employed. TISSUE DENSITY: a. The breasts are almost entirely fatty. FINDINGS: No suspicious masses, grouped microcalcifications, or areas ofarchitectural distortion are seen. The skin and vascularity are unremarkable. IMPRESSION: Stable mammographic appearance of the breasts. No evidence of malignancyis seen. A negative mammogram in the presence of a clinically suspicious palpable abnormality does not preclude the possibility of malignancy or alter the indications for biopsy. BI-RADS: Category 1: Negative RECOMMENDATION(S): 1: Routine screening mammogram BILATERAL in 1 year. Dictating Physician: LIN HERNANDEZ MD Electronically Signed by: LIN HERNANDEZ MD Dic Date/Time: 04/15/23 1245 Sign date/Time: 04/15/23 1246 Leonie Beal MD IM BI PROCEDURES Final Result * Hepatitis C Screening (02/11/2022) Hepatitis C Screening Abstracted us Historical Provider HEALTH MAINTENANCE Final Result from Last 3 Months or Most Recently Relevant to Health Maintenance Insurance [facility] MEDICARE Member Subscriber Plan / Payer (Ef fective 2016-Present) Name:SAM GOLDSTEIN Relation to Subscriber:Self Name:Sam Goldstein Payer ID:[id number] Group ID:[id number] Type:Not on file Address: [place] [address] [address] [id number] Advance Directives Documents on File Type Date Recorded Patient Screen Maker Expl anation Advance Directives and Living Will 05/19/2024 10:59 AM Inocencia Mistry Health Care Proxy * Full Code - Default (Latest Code Status on File) Date Activated Date Inactivated Comments 05/17/2024 7:32 AM 05/19/2024 3:14 PM This is order is used when code status has not been discussed with the patient, or code status is otherwise unknown/unconfirmed To update the patient's code status, place a code status order. Do not modify or discontinue any currently active code status orders. Healthcare Agents on File Name Relationship Healthcare Agent Relationshi p Communication Inocencia Mistry Friend First [facility] Health C are Agent Vivek Mistry Second Alternate Health Care Agent Care Teams Fuse Cup Expander Relationship Specialty Start Date End Date Leonie Beal MD [address] [place] [id number] PCP - General Internal Medicine 02/14/24
== END 2024-08-24 10:10 | disposition home or self-care (01) ==
LOC: HO.PMC 09:42
PROVIDERS: PCP Internal Medicine; Visit Provider Anesthesiology
DX: M47.816 Spondylosis without myelopathy or radiculopathy, lumbar region (principal); M25.552 Pain in left hip; M53.3 Sacrococcygeal disorders, not elsewhere classified; M62.838 Other muscle spasm; M51.369 Other intervertebral disc degeneration, lumbar region without mention of lumbar back pain or lower extremity pain; M54.16 Radiculopathy, lumbar region
CPT/HCPCS: 99213

== ENCOUNTER → 2024-08-24 09:42 | Outpatient (BNVA) | payer OTHER, SELFPAY | PROVIDERS: PCP Internal Medicine; Visit Provider Anesthesiology | DX: M47.816 Spondylosis without myelopathy or radiculopathy, lumbar region (principal); M25.552 Pain in left hip; M53.3 Sacrococcygeal disorders, not elsewhere classified; M62.838 Other muscle spasm; M51.369 Other intervertebral disc degeneration, lumbar region without mention of lumbar back pain or lower extremity pain; M54.16 Radiculopathy, lumbar region | CPT/HCPCS: 99212 ==

== ENCOUNTER 2024-11-30 15:27 | Outpatient (AMB) | payer OTHER, SELFPAY ==
--- NOTE | 2024-11-30 15:37 | A.OFFVIS_ITS ---
Vital Signs 11/30/24 15:38 Height 5 ft Weight 192 lb BMI 37.5 BP 183/87 H Blood Pressure Location Lt brachial Position Sitting Respiration 16 Pulse 86 Pulse Source Pulse Oximeter Pulse Oximetry (%) 95 Oxygen Delivery Method Room Air Intake Visit Reasons: Back Pain Assistant Banquet Manager Required: No Accompanied by: Daughter Allergies No Known Allergies (No Known Allergies*) Allergy (Verified 11/30/24 15:46) HPI Comments Details: Ms. Tejal Goldstein is back in my office to discuss further treatment. In the past she had diagnostic medial branch block which resulted in more than 6 hours of 100% pain improvement. Because of her morbid obesity we decided to proceed with sprint PNS, however patient was not able to tolerate the stimulation, she fractured her electrode and later on it was removed. I consulted sprint PNS specialist and they would not guarantee with her shear body mass it would not be possible to fracture the electrode again. This time patient came to my office and she appears to lose a lot of weight here. Her BMI now is 37.5 which is only moderate obesity. I believe I can try radiofrequency ablation of the medial branches L 3, L4 dorsal ramus L5 bilateral for this patient now. In the order to proceed for RFA I need to perform diagnostic 2. Medial branches L3, L4, dorsal ramus L5 bilateral Prior: Sprint stimulation was not successful for this patient. Her stimulating electrode was fractured and removed few days after insertion. The procedure is not recommended to repeat by sprint sales representative sales manager due to high body mass. Transforaminal epidural steroid injections resulted in no pain improvement. Multiple sessions of physical therapy resulted in no improvement. Multiple medications including NSAIDs resulted in no improvement. Pain pump was discussed. Baclofen seem to be appropriate medication maybe in combination with bupivacaine. The patient received today again the formulation of the statement the psychologist need to submit to us to allow us to do pain pump trial. [facility] Medical History Morbid obesity Diabetes Asthma Hyperlipidemia Hypertension Kidney stones Surgical History S/P placement of nerve stimulator Hx of lithotripsy Hx of section Hx of colonoscopy Family History Mother Asthma Diabetes Hypertension Breast cancer Hypercholesteremia Hypothyroid Father Diabetes Hypercholesteremia Hypertension Heart abnormality Gangrene associated with diabetes mellitus FHx: cancer of prostate Sister Hypothyroid Diabetes Anemia Social History Household Members: Spouse Housing: Apartment Do you presently have visiting nurse or other home services: No Alcohol intake: never Patient Tobacco Use Status: Never used Tobacco Second Hand Smoke Exposure: No Advance Directives Date on File: 07/01/21 service: No Review of Systems Const All systems reviewed & are unremarkable except as noted in HPI and below Physical Exam Vital Signs: Last Vital Signs Pulse 86 11/30/24 15:38 Resp 16 11/30/24 15:38 BP 183/87 H 11/30/24 15:38 Pulse Ox 95 11/30/24 15:38 Oxygen Delivery Method Room Air 11/30/24 15:38 BMI result Body Mass Index 37.5 Const General: healthy appearing and no acute distress Resp Effort & Inspection: normal respiratory effort Auscultation: clear to auscultation bilaterally Cardio Rate: regular rate Rhythm: regular rhythm GI Auscultation: normal bowel sounds Back/Spine/Pelvis Other: Tenderness on palpation in paraspinal left and midline spinal region of the lumbar spine. SLR is positive on the left. Lassegue test is positive on the left as well. Extrem General: Yes normal to inspection Assessment & Plan Assessment & Plan (1) Spondylosis of lumbar spine: Code(s): M47.816 - Spondylosis without myelopathy or radiculopathy, lumbar region Category: Medical (2) Left hip pain: Code(s): M25.552 - Pain in left hip Category: Medical (3) Sacroiliac joint pain: Code(s): M53.3 - Sacrococcygeal disorders, not elsewhere classified Category: Medical (4) Muscle spasm: Code(s): M62.838 - Other muscle spasm Category: Medical (5) Disc degeneration, lumbar: Code(s): M51.36 - Other intervertebral disc degeneration, lumbar region Category: Medical (6) Radiculopathy, lumbar region: Code(s): M54.16 - Radiculopathy, lumbar region Category: Medical Plan Sprint stimulation was not successful for this patient. Her stimulating electrode was fractured and removed few days after insertion. Unfortunately the sprint sales representative sales manager cannot guarantee that this would not happen if patient would go for repeat of the procedure. Therapeutic medial branch block L3-L4 does ramus L5 resulted in 50% pain improvement which was performed on 02/05/2022. Diagnostic medial branch block resulted in 100% pain improvement for the 5 hours after the procedure. Transforaminal epidural steroid injections resulted in no pain improvement. Multiple sessions of physical therapy resulted in no improvement. Multiple medications discussed as above resulted in no improvement. Pain pump was continued to be contemplated for this patient, however there is difficulty obtaining psychological evaluation for this patient. At the same time she lost a lot of weight and now I can contemplate radiofrequency ablation of L3, L4, dorsal ramus L5 bilateral medial branches. To prepare the patient for this procedure I need to perform diagnostic 2. Medial branch block with bupivacaine and epinephrine. I will schedule this patient for the procedure as soon as possible. We will evaluate this patient few days after the procedure. Coding Level of Care Code Est Pt Level 3 (99767) Diagnoses Spondylosis of lumbar spine M47.816 Left hip pain M25.552 Sacroiliac joint pain M53.3 Muscle spasm M62.838 Disc degeneration, lumbar M51.36 Radiculopathy, lumbar region M54.16
[2024-11-30 15:38] VITALS: BP 183/87; PULSE 86; RESP 16; O2SAT 95; BMI 37.5
--- OUTSIDE RECORDS SUMMARY | 2024-11-30 19:17 | XMS_ITS | Encounter Summary ---
Author Organization [facility] Address [address] [place] [address] Care Team Providers Care Truck Technician Name Role Phone Paulina Beal MD Primary Care Prov ider Reason for Visit * Reason Onset Date Comments Fitting for DME 11/30/2024 Encounter Details Date Type Department Care Team (Late st Contact Info) Description 11/30/2024 Telephone Adult Medicine [address] [phone] Paulina Beal MD [address] [place] [address] Social History Tobacco Use Types Packs/Day Years Used Date Smoking Tobacco: Never Smokeless Tobacco: Never Alcohol Use Standard Drinks/Week Comments No 0 [...] care for your loved ones. For example, housekeeper child care or elderly care for an older adult? [...] Date Recorded What is your living situation? Unrecognized valu e 06/12/2024 Interpersonal Safety Answer Date Record ed Physical Abuse Unrecognized value 05/17/2024 Verbal Abuse Unrecognized value 05/17/2024 Comments No Sex and Gender Information Value Date Recorded Sex Assigned at Female 03/18/2024 7:11 PM EST Legal Sex Female 4:32 AM EST Gender Identity Female 03/18/2024 7:11 PM EST Sexual Orientation Straight 03/18/2024 7: 11 PM EST documented as of this encounter Progress Notes * Jarad Mclaughlin MA - 11/30/2024 10:23 AM EDT Orders hand faxed. scanned * Jarad Mclaughlin MA - 11/30/2024 9:55 AM EDT PCP requesting walker documented in this encounter Plan of Treatment Upcoming Encounters Date Type Department Care Team (Late st Contact Info) Description 03/20/2025 1:15 PM EST Office Visit Adult Medicine [address] [phone] Paulina Beal MD [address] [place] [address] documented as of this encounter Visit Diagnoses Diagnosis Chronic lumbar radiculopathy- Primary Osteoarthritis, unspecified osteoarthritis type, unspecified site documented in this encounter Orders General Supply Count Last Ordered Date First Or dered Date WALKER 1 11/30/2024 documented in this encounter Additional Health Concerns Assessment Noted Time PHQ-9 Depression Total Score: 0 07/05/19 25 10:29 AM EDT documented as of this encounter Care Teams Truck Technician Relationship Specialty Start Date End Date Paulina Beal MD [address] [place] [address] PCP - General Internal Medicine 02/14/24 documented as of this encounter
--- OUTSIDE RECORDS SUMMARY | 2024-11-30 19:18 | XMS_ITS | Clinical Summary ---
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 the liver measures 19.6 cm. This is between 1 and 2 standard deviations above the mean expected. No suspicious focal liver lesion. BILIARY TRACT: There are clips in the expected region of the gallbladder. There is no biliary dilation. SPLEEN: The spleen measures 12.3 cm. No suspicious abnormality. PANCREAS: No suspicious abnormality. ADRENAL GLANDS: No suspicious abnormality. KIDNEYS: There are bilateral renal calculi. The largest on the right measures 0.7 cm and is 13.0 cm from the skin. The largest on the left measures 0.6 cm and is 14.2 cm from the skin. There is a partially exophytic 1.8 cm round low attenuating lesion arising from the ventral mid right kidney similar to previous. Additional small renal masses demonstrated on the previous study are less well characterized. There is no ureteral dilation. No definite opaque ureteral calculus. URINARY BLADDER: The bladder is empty and not well evaluated. PELVIC VISCERA: The uterus is not demonstrated and it is likely surgically absent. There is no suspicious adnexal mass or collection. GASTROINTESTINAL TRACT: No colonic wall thickening. No localized fat stranding. There has been a bariatric procedure. No evidence of high-grade small bowel obstruction. ABDOMINAL WALL: No significant hernia is appreciated. LYMPHOVASCULAR STRUCTURES AND FLUID: There is no abdominal aortic aneurysm. There are no measurably enlarged abdominal or pelvic lymph nodes. There is no free intraperitoneal fluid. VISUALIZED LOWER CHEST: No suspicious abnormality. MUSCULOSKELETAL: No acute or suspicious osseous abnormality. Procedure Note Francis Westfall MD - 10/15/2024 EXAMINATION: CT ABDOMEN/PELVIS WITHOUT IV CONTRAST CLINICAL INFORMATION: Flank pain. Urinary calculus suspected. COMPARISON: Portions of a previous CT 03/18/24 TECHNIQUE: Multidetector CT. Helical examination of the abdomen and pelvis. Imaging performed without IV contrast. Reformatting in the coronal and sagittal planes. DLP: 1162 mGy-cm Dose optimization was performed including the use of low-dose iterativereconstruction technique with automatic exposure control based on patientsize. Type of contrast: None Volume of IV contrast: None Volume of contrast discarded: 0 mL FINDINGS: LIVER: The right lobe of the liver measures 19.6 cm. This is between 1 and2 standard deviations above the mean expected. No suspicious focal liverlesion. BILIARY TRACT: There are clips in the expected region of the gallbladder.There is no biliary dilation. SPLEEN: The spleen measures 12.3 cm. No suspicious abnormality. PANCREAS: No suspicious abnormality. ADRENAL GLANDS: No suspicious abnormality. KIDNEYS: There are bilateral renal calculi. The largest on the rightmeasures 0.7 cm and is 13.0 cm from the skin. The largest on the leftmeasures 0.6 cm and is 14.2 cm from the skin. There is a partially exophytic 1.8 cm round low attenuating lesion arisingfrom the ventral mid right kidney similar to previous. Additional smallrenal masses demonstrated on the previous study are less wellcharacterized. There is no ureteral dilation. No definite opaque ureteral calculus. URINARY BLADDER: The bladder is empty and not well evaluated. PELVIC VISCERA: The uterus is not demonstrated and it is likelysurgically absent. There is no suspicious adnexal mass or collection. GASTROINTESTINAL TRACT: No colonic wall thickening. No localized fatstranding. There has been a bariatric procedure. No evidence of high-grade smallbowel obstruction. ABDOMINAL WALL: No significant hernia is appreciated. LYMPHOVASCULAR STRUCTURES AND FLUID: There is no abdominal aorticaneurysm. There are no measurably enlarged abdominal or pelvic lymphnodes. There is no free intraperitoneal fluid. VISUALIZED LOWER CHEST: No suspicious abnormality. MUSCULOSKELETAL: No acute or suspicious osseous abnormality. IMPRESSION: There are bilateral renal calculi. No dilation of the ureter or opaque ureteral calculus demonstrated. Previous cholecystectomy. Previous bariatric procedure. -------- FINAL REPORT -------- Dictated By: Francis Westfall Dictated Date: 10/15/2024 13:24 ET Assigned Physician: Francis Westfall Reviewed and Electronically Signed By: Francis Westfall Signed Date: 10/15/2024 13:34 ET Workstation ID: [id number] Transcribed By: Self Edit Transcribed Date: 10/15/2024 13:24 ET Yolanda Jenkins MD [facility] [place] PROCEDURES Final Result * (ABNORMAL) Urinalysis with reflex microscopic and culture (10/15/2024 11:34 AM EDT) Specific Halls Urine 1.021 1.003 - 1.030 LAB URINALYSIS - AUTOMATED METHOD 10/15/2024 1:14 PM EDT [facility] pH, Urine 5.5 5.0 - 8.0 pH LAB URINALYSIS - AUTOMATED METHOD 10/15/2024 1:14 PM [facility] Leukocytes, Urine Large(A) Negative LAB URINALYSIS - AUTOMATED METHOD 10/15/2024 1:14 PM [facility] Nitrite, Urine Negative Negative LAB URINALYSIS - AUTOMATED METHOD 10/15/2024 1:14 PM [facility] Protein, Urine 30(A) <=Trace mg/dL LAB URINALYSIS - AUTOMATED METHOD 10/15/2024 1:14 PM [facility] Glucose, Urine Negative Negative mg/dL LAB URINALYSIS - AUTOMATED METHOD 10/15/2024 1:14 PM [facility] Ketones, Urine Negative Negative mg/dL LAB URINALYSIS - AUTOMATED METHOD 10/15/2024 1:14 PM [facility] Urobilinogen, Urine 1.0 0.2 - 1.0 mg/dL LAB URINALYSIS - AUTOMATED METHOD 10/15/2024 1:14 PM [facility] Bilirubin, Urine Negative Negative LAB URINALYSIS - AUTOMATED METHOD 10/15/2024 1:14 PM [facility] Blood, Urine Large(A) Negative LAB URINALYSIS - AUTOMATED METHOD 10/15/2024 1:14 PM [facility] RBC, Urine 3 0 - 4 /HPF LAB URINALYSIS - AUTOMATED METHOD 10/15/2024 1:14 PM [facility] WBC, Urine 225.6(H) 0 - 4 /HPF LAB URINALYSIS - AUTOMATED METHOD 10/15/2024 1:14 PM [facility] Squamous Epithelial, Urine 11 0 - 60 /LPF LAB URINALYSIS - AUTOMATED METHOD 10/15/2024 1:14 PM [facility] Bacteria, Urine Few(A) Negative /HPF LAB URINALYSIS - AUTOMATED METHOD 10/15/2024 1:14 PM [facility] Hyaline Casts, Urine 0.4 0 - 3 /LPF LAB URINALYSIS - AUTOMATED METHOD 10/15/2024 1:14 PM EDT [facility] Urine Urine specimen obtained by clean catch procedure / Unknown Non-blood Collection / Unknown 10/15/2024 11:34 AM EDT 10/15/2024 12:09 PM EDT us Yolanda Jenkins MD LAB URINE ORDERABLES Final Res ult Performing Organization Address [facility] Co de Phone Number [facility] [address] [place] [address], [place] [phone] * Isaacs urine culture tube (10/15/2024 11:34 AM EDT) Only the most recent of2 resultswithin the time period is included. Extra Tube Hold for add-ons. 10/15/2024 2:01 PM EDT [facility] Comment:Auto resulted. Urine Urine specimen obtained by clean catch procedure / Unknown Non-blood Collection / Unknown 10/15/2024 11:34 AM EDT 10/15/2024 12:09 PM EDT us Yolanda Jenkins MD LAB URINE ORDERABLES Final Res ult Performing Organization Address [facility] de Phone Number [facility] [address] [place] [address], [place] [phone] * (ABNORMAL) Culture urine (10/15/2024 11:34 AM EDT) Culture, Urine 50,000-100,000 CFU/mL Citrobacter koseri(A) KATERINA 10/17/2024 8:52 AM EDT [facility] Comment: This is an edited result. Previous organism was Gram negative bacilli on 10/16/2024 at 1040 EDT. Urine Urine specimen obtained by clean catch procedure / Unknown Non-blood Collection / Unknown 10/15/2024 11:34 AM EDT 10/15/2024 1:14 PM EDT Narrative Organism Antibiotic Method Susceptibility Citrobacter koseri Amoxicillin/Clavulanate KATERINA 8 ug/ml: Susceptible Citrobacter koseri Piperacillin/Tazobactam KATERINA <=4 ug/ml: Susceptible Citrobacter koseri Cefoxitin KATERINA <=4 ug/ml: Susceptible Citrobacter koseri Ceftazidime KATERINA <=0.5 ug/ml: Susceptible Citrobacter koseri Ceftriaxone KATERINA <=0.25 ug/ml: Susceptible Citrobacter koseri Cefepime KATERINA <=0.12 ug/ml: Susceptible Citrobacter koseri Meropenem KATERINA <=0.25 ug/ml: Susceptible Citrobacter koseri Amikacin KATERINA <=1 ug/ml: Susceptible Citrobacter koseri Gentamicin KATERINA <=1 ug/ml: Susceptible Citrobacter koseri Ciprofloxacin KATERINA <=0.06 ug/ml: Susceptible Citrobacter koseri Levofloxacin KATERINA <=0.12 ug/ml: Susceptible Citrobacter koseri Nitrofurantoin KATERINA 32 ug/ml: Susceptible Citrobacter koseri Trimethoprim/Sulfamethoxazole KATERINA <=20 ug/ml: Susceptible us Yolanda Jenkins MD LAB MICROBIOLOGY - GENERAL ORD ERABLES Final Result [facility] [address] [place] [address], * (ABNORMAL) CBC auto differential (10/15/2024 11:31 AM EDT) WBC 12.1(H) 4.8 - 10.8 K/mcL LAB HEMETOLOGY METHOD 10/15/2024 11:48 AM EDT [facility] RBC 4.90(H) 3.80 - 4.80 M/mcL LAB HEMETOLOGY METHOD 10/15/2024 11:48 AM EDT [facility] Hemoglobin 13.8 11.5 - 16.0 g/dL LAB HEMETOLOGY METHOD 10/15/2024 11:48 AM EDT [facility] Hematocrit 42.8 35.0 - 47.0 % LAB HEMETOLOGY METHOD 10/15/2024 11:48 AM [facility] MCV 87.2 79.0 - 98.0 FL LAB HEMETOLOGY METHOD 10/15/2024 11:48 AM [facility] MCH 28.1 27.0 - 32.0 pcg LAB HEMETOLOGY METHOD 10/15/2024 11:48 AM [facility] MCHC 32.2 32.0 - 37.0 g/dL LAB HEMETOLOGY METHOD 10/15/2024 11:48 AM [facility] RDW 13.7 11.0 - 15.0 % LAB HEMETOLOGY METHOD 10/15/2024 11:48 AM [facility] Platelets 296 130 - 400 K/mcL LAB HEMETOLOGY METHOD 10/15/2024 11:48 AM [facility] MPV 10.8 7.0 - 11.0 FL LAB HEMETOLOGY METHOD 10/15/2024 11:48 AM [facility] NRBC 0.0 <1.0 % LAB HEMETOLOGY METHOD 10/15/2024 11:48 AM [facility] NRBC Absolute 0.00 <0.10 K/mcL LAB HEMETOLOGY METHOD 10/15/2024 11:48 AM [facility] Neutrophils Relative 68.4 % LAB HEMETOLOGY METHOD 10/15/2024 11:48 AM [facility] Lymphocytes Relative 23.0 % LAB HEMETOLOGY METHOD 10/15/2024 11:48 AM [facility] Monocytes Relative 5.2 % LAB HEMETOLOGY METHOD 10/15/2024 11:48 AM [facility] Eosinophils Relative 2.6 % LAB HEMETOLOGY METHOD 10/15/2024 11:48 AM [facility] Basophils Relative 0.5 % LAB HEMETOLOGY METHOD 10/15/2024 11:48 AM EDT [facility] Immature Granulocytes Relative 0.3 % LAB HEMETOLOGY METHOD 10/15/2024 11:48 AM EDT [facility] Neutrophils Absolute 8.29(H) 1.50 - 7.00 K/mcL LAB HEMETOLOGY METHOD 10/15/2024 11:48 AM EDT [facility] Lymphocytes Absolute 2.79 1.00 - 5.00 K/mcL LAB HEMETOLOGY METHOD 10/15/2024 11:48 AM EDT [facility] Monocytes Absolute 0.63 0.20 - 1.00 K/mcL LAB HEMETOLOGY METHOD 10/15/2024 11:48 AM EDT [facility] Eosinophils Absolute 0.32 0.00 - 0.50 K/mcL LAB HEMETOLOGY METHOD 10/15/2024 11:48 AM EDT [facility] Basophils Absolute 0.06 0.00 - 0.20 K/mcL LAB HEMETOLOGY METHOD 10/15/2024 11:48 AM EDT [facility] Immature Granulocytes Absolute 0.04(H) 0.00 - 0.03 K/mcL LAB HEMETOLOGY METHOD 10/15/2024 11:48 AM EDT [facility] Blood Venous blood specimen / Unknown Venipuncture / Unknown 10/15/2024 11:31 AM EDT 10/15/2024 11:38 AM EDT us Yolanda Jenkins MD LAB BLOOD ORDERABLES Final Res ult [facility] [address] [place] [address], * (ABNORMAL) Comprehensive metabolic panel (10/15/2024 11:31 AM EDT) Only the most recent of2 resultswithin the time period is included. [facility] Signature Sodium 140 133 - 145 mmol/L LAB CHEMISTRY METHOD 10/15/2024 12:06 PM [facility] Potassium 3.6 3.5 - 5.5 mmol/L LAB CHEMISTRY METHOD 10/15/2024 12:06 PM [facility] Chloride 107 96 - 110 mmol/L LAB CHEMISTRY METHOD 10/15/2024 12:06 PM [facility] CO2 28 21 - 32 mmol/L LAB CHEMISTRY METHOD 10/15/2024 12:06 PM [facility] Anion Gap 5 3 - 11 LAB CHEMISTRY METHOD 10/15/2024 12:06 PM [facility] Glucose 137(H) 70 - 100 mg/dL LAB CHEMISTRY METHOD 10/15/2024 12:06 PM [facility] BUN 9 5 - 25 mg/dL LAB CHEMISTRY METHOD 10/15/2024 12:06 PM [facility] Creatinine 0.78 0.50 - 1.10 mg/dL LAB CHEMISTRY METHOD 10/15/2024 12:06 PM [facility] eGFR 89 >=60 mL/min/1. 73m2 LAB CHEMISTRY METHOD 10/15/2024 12:06 PM [facility] Comment:Calculation based on the Chronic Kidney Disease Epidemiology Collaboration (CKD-EPI) equation refit without adjustment for race. BUN/Creatinine Ratio 11.5 LAB CHEMISTRY METHOD 10/15/2024 12:06 PM [facility] Calcium 9.4 8.5 - 10.5 mg/dL LAB CHEMISTRY METHOD 10/15/2024 12:06 PM [facility] AST (SGOT) 22 10 - 42 unit/L LAB CHEMISTRY METHOD 10/15/2024 12:06 PM [facility] ALT (SGPT) 29 10 - 60 unit/L LAB CHEMISTRY METHOD 10/15/2024 12:06 PM [facility] Alkaline Phosphatase 168(H) 42 - 121 unit/L LAB CHEMISTRY METHOD 10/15/2024 12:06 PM EDT [facility] Total Protein 7.0 6.0 - 8.0 g/dL LAB CHEMISTRY METHOD 10/15/2024 12:06 PM EDT [facility] Albumin 3.8 3.2 - 5.0 g/dL LAB CHEMISTRY METHOD 10/15/2024 12:06 PM EDT [facility] Total Bilirubin 0.5 0.0 - 1.4 mg/dL LAB CHEMISTRY METHOD 10/15/2024 12:06 PM EDT [facility] Blood Venous blood specimen / Unknown Venipuncture / Unknown 10/15/2024 11:31 AM EDT 10/15/2024 11:38 AM EDT us Yolanda Jenkins MD LAB BLOOD ORDERABLES Final Res ult [facility] [address] [place] [address], [place] [phone] * (ABNORMAL) Microalbumin creatinine urine ratio (09/18/2024 8:47 AM EDT) Creatinine, Urine 200.0 mg/dL LAB CHEMISTRY METHOD 09/18/2024 10:40 AM EDT [facility] Microalb, Ur 98.0(H) 0.0 - 29.0 mg/L LAB CHEMISTRY METHOD 09/18/2024 10:40 AM EDT [facility] Microalb/Crea t Ratio 49(H) <30 mg/g creat LAB CHEMISTRY METHOD 09/18/2024 10:40 AM EDT [facility] Urine Urine specimen obtained by clean catch procedure / Unknown Non-blood Collection / Unknown 09/18/2024 8:47 AM EDT 09/18/2024 8:47 AM EDT us Leonie Beal MD LAB URINE ORDERABL ES Final Result [facility] [address] [place] [address], [place] [phone] * (ABNORMAL) Lipid panel with reflex to direct LDL (09/18/2024 8:32 AM EDT) Cholesterol 143 0 - 200 mg/dL LAB CHEMISTRY METHOD 09/18/2024 10:12 AM EDT [facility] Triglycerides 159(H) 0 - 150 mg/dL LAB CHEMISTRY METHOD 09/18/2024 10:12 AM EDT [facility] HDL 44 >=40 mg/dL LAB CHEMISTRY METHOD 09/18/2024 10:12 AM EDT [facility] LDL Calculated 67 0 - 100 mg/dL LAB CHEMISTRY METHOD 09/18/2024 10:12 AM EDT [facility] VLDL Cholesterol Claude 31.8 mg/dL LAB CHEMISTRY METHOD 09/18/2024 10:12 AM EDT [facility] Non HDL Chol. (LDL+VLDL) 99 <145 mg/dL LAB CHEMISTRY METHOD 09/18/2024 10:12 AM EDT [facility] Chol/HDL Ratio 3.3 0.0 - 4.4 LAB CHEMISTRY METHOD 09/18/2024 10:12 AM EDT [facility] Blood Venous blood specimen / Unknown Venipuncture / Unknown 09/18/2024 8:32 AM EDT 09/18/2024 8:32 AM EDT Leonie Beal MD LAB BLOOD ORDERABL ES Final Result [facility] [address] [place] [address], [place] [phone] * Iron and TIBC (09/18/2024 8:32 AM EDT) Iron 69 40 - 150 mcg/dL LAB CHEMISTRY METHOD 09/18/2024 10:12 AM EDT [facility] TIBC 306 250 - 450 mcg/dL LAB CHEMISTRY METHOD 09/18/2024 10:12 AM EDT [facility] Iron Saturation 23 15 - 50 % LAB CHEMISTRY METHOD 09/18/2024 10:12 AM EDT [facility] Blood Venous blood specimen / Unknown Venipuncture / Unknown 09/18/2024 8:32 AM EDT 09/18/2024 8:32 AM EDT Kailey OCASIO LAB BLOOD ORDERABLES Final R esult Performing Organization Address City/[facility]/ZIP Co de Phone Number [facility] [address] [place] [address], [place] [phone] * Copper, serum (09/18/2024 8:32 AM EDT) Copper 1533 810 - 1990 ug/L 09/21/2024 8:37 AM EDT [facility] Comment: Copper values may be elevated to twice the normal levels in . Elevated results may be due to sample collected in a non-certified trace element-free tube. This test was developed and the performance characteristics determined by [facility]. It has not been cleared or approved by the FDA. The laboratory is regulated under CLIA as qualified to perform high-complexity testing. This test is used for patient testing purposes. It should not be regarded as investigational or for research. Test performed at [facility], [address] [place] [address] Yuni Beckwith MD, PhD - Vacuum System Tester Blood Venous blood specimen / Unknown Venipuncture / Unknown 09/18/2024 8:32 AM EDT 09/18/2024 8:32 AM EDT Kaiely OCASIO LAB BLOOD ORDERABLES Final R esult [facility] [address] [place] [address] * Zinc (09/18/2024 8:32 AM EDT) Zinc 90 60 - 130 ug/dL 09/20/2024 10:15 AM EDT [facility] Comment: Elevated results may be due to sample collected in a non-certified trace element-free tube. This test was developed and the performance characteristics determined by [facility]. It has not been cleared or approved by the FDA. The laboratory is regulated under CLIA as qualified to perform high-complexity testing. This test is used for patient testing purposes. It should not be regarded as investigational or for research. Test performed at [facility], [address] [place] [address] Yuni Beckwith MD, PhD - Vacuum System Tester Blood Venous blood specimen / Unknown Venipuncture / Unknown 09/18/2024 8:32 AM EDT 09/18/2024 8:32 AM EDT Kailey OCASIO LAB BLOOD ORDERABLES Final R esult [facility] [address] [place] [address] * Vitamin A (09/18/2024 8:32 AM EDT) Vitamin A 53 38 - 106 ug/dL 09/21/2024 5:55 AM EDT [facility] Comment: This test was developed and the performance characteristics determined by [facility]. It has not been cleared or approved by the FDA. The laboratory is regulated under CLIA as qualified to perform high-complexity testing. This test is used for patient testing purposes. It should not be regarded as investigational or for research. Test performed at [facility], [address] , [place] [address] Yuni Beckwith MD, PhD - Vacuum System Tester Blood Venous blood specimen / Unknown Venipuncture / Unknown 09/18/2024 8:32 AM EDT 09/18/2024 8:32 AM EDT Kailey OCASIO LAB BLOOD ORDERABLES Final R esult Performing Organization Address [facility]/ZIP Co de Phone Number [facility] [address] [place] [address] * Selenium serum (09/18/2024 8:32 AM EDT) Selenium 111 63 - 160 mcg/L 09/24/2024 10:50 PM EDT [facility] Comment: This test was developed and its analytical performance characteristics have been determined by [employer] [place], [place]. It has not been cleared or approved by the U.S. Food and Drug Administration. This assay has been validated pursuant to the CLIA regulations and is used for clinical purposes. Test Performed by [facility], [employer] [facility], [address] [place] [address] Ernesto Nguyen M.D., Ph.D., Director of Laboratories , CLIA [id number] Blood Venous blood specimen / Unknown Venipuncture / Unknown 09/18/2024 8:32 AM EDT 09/18/2024 8:32 AM EDT Kailey OCAS[facility] LAB BLOOD ORDERABLES Final R esult Performing Organization Address [facility]/ZIP Co de Phone Number [facility] [address] [place] [address] * Vitamin D 25 hydroxy (09/18/2024 8:32 AM EDT) Vit D, 25-Hydroxy 31.6 30.0 - 80.0 ng/mL LAB CHEMISTRY METHOD 09/18/2024 11:07 AM EDT [facility] Blood Venous blood specimen / Unknown Venipuncture / Unknown 09/18/2024 8:32 AM EDT 09/18/2024 8:32 AM EDT Miguel Munoz MD LAB BLOOD ORDERABLES Final Res ult [facility] [facility] [address] [place] [address], [place] [phone] * Uric acid (09/18/2024 8:32 AM EDT) Uric Acid 3.6 3.1 - 7.8 mg/dL LAB CHEMISTRY METHOD 09/18/2024 10:12 AM EDT [facility] Blood Venous blood specimen / Unknown Venipuncture / Unknown 09/18/2024 8:32 AM EDT 09/18/2024 8:32 AM EDT Miguel Munoz MD LAB BLOOD ORDERABLES Final Res ult Performing Organization Address [facility]/ZIP Co de Phone Number [facility] [address] [place] [address], [place] [phone] * Vitamin B1 (09/18/2024 8:32 AM EDT) Pathologist [facility] Vitamin B1 Whole Blood 97 38 - 122 ug/L 09/22/2024 10:51 AM EDT [facility] Comment: This test was developed and the performance characteristics determined by [facility]. It has not been cleared or approved by the FDA. The laboratory is regulated under CLIA as qualified to perform high-complexity testing. This test is used for patient testing purposes. It should not be regarded as investigational or for research. Test performed at [facility], [address] , [place] [address] Yuni Beckwith MD, PhD - Vacuum System Tester Blood Venous blood specimen / Unknown Venipuncture / Unknown 09/18/2024 8:32 AM EDT 09/18/2024 8:32 AM EDT Kailey [facility]AS[facility] LAB BLOOD ORDERABLES Final R esult [facility] [address] [place] [address] * Vitamin B6 (09/18/2024 8:32 AM EDT) Vitamin B6 (Pyridoxine) Level 23 5 - 50 ug/L 09/21/2024 7:38 AM EDT [facility] Comment: This test was developed and the performance characteristics determined by [facility]. It has not been cleared or approved by the FDA. The laboratory is regulated under CLIA as qualified to perform high-complexity testing. This test is used for patient testing purposes. It should not be regarded as investigational or for research. Test performed at [facility], [address] , [place] [address] Yuni Beckwith MD, PhD - Vacuum System Tester Blood Venous blood specimen / Unknown Venipuncture / Unknown 09/18/2024 8:32 AM EDT 09/18/2024 8:32 AM EDT us Ka[facility] LAB BLOOD ORDERABLES Final R esult [facility] [address] [place] [address] * Parathyroid hormone intact (09/18/2024 8:32 AM EDT) Pathologist [facility] PTH 55.4 18.5 - 88.0 pcg/mL LAB CHEMISTRY METHOD 09/18/2024 11:08 AM EDT [facility] Blood Venous blood specimen / Unknown Venipuncture / Unknown 09/18/2024 8:32 AM EDT 09/18/2024 8:32 AM EDT Miguel Munoz MD LAB BLOOD ORDERABLES Final Res ult [facility] [address] [place] [address], * (ABNORMAL) Hemoglobin A1c (09/18/2024 8:32 AM EDT) [facility] Hemoglobin A1C 7.3(H) <6.5 % LAB CHEMISTRY METHOD 09/18/2024 11:29 AM EDT [facility] Mean Bld Glu Estim. 163 mg/dL LAB CHEMISTRY METHOD 09/18/2024 11:29 AM EDT [facility] Blood Venous blood specimen / Unknown Venipuncture / Unknown 09/18/2024 8:32 AM EDT 09/18/2024 8:32 AM EDT Leonie Beal MD LAB BLOOD ORDERABL ES Final Result [facility] [address] [place] [address], [place] [phone] * Folate (09/18/2024 8:32 AM EDT) [facility] Folate 12.5 2.8 - 17.0 ng/ml LAB CHEMISTRY METHOD 09/18/2024 10:34 AM EDT [facility] Blood Venous blood specimen / Unknown Venipuncture / Unknown 09/18/2024 8:32 AM EDT 09/18/2024 8:32 AM EDT us Kailey OCASIO LAB BLOOD ORDERABLES Final R esult [facility] [address] [place] [address], [place] [phone] * Vitamin B12 (09/18/2024 8:32 AM EDT) [facility] Vitamin B-12 501 250 - 900 pcg/mL LAB CHEMISTRY METHOD 09/18/2024 10:34 AM EDT [facility] Blood Venous blood specimen / Unknown Venipuncture / Unknown 09/18/2024 8:32 AM EDT 09/18/2024 8:32 AM EDT Kailey OCASIO LAB BLOOD ORDERABLES Final R esult [facility] [address] [place] [address], [place] [phone] * External Diabetic Retina Eye Exam Report (07/04/2024) Anatomical Region Laterality Modality Ultrasound Provider [facility] US PROCEDURES Final Result * COLONOSCOPY Anesthesia - MAC; [facility] ENDOSCOPY (02/17/2024 1:17 PM EST) Anatomical Region [...] pathology results. Narrative 02/17/2024 1:18 PM EST [facility] Patient Name: Sam Goldstein Procedure Date: 02/17/2024 12:23 PM Date of : 1970 Age: 53 Gender: Female Note Status: Finalized Attending MD: Josh Arce DO, [id number] Procedure Date No Time: 02/17/2024 Procedure: Colonoscopy [...] the physician, the nurse, the anesthesiologist, the tire mounter and the drafting technician in the pre-procedure area in the [...] retroflexion views. Procedure Code(s): --- Professional --- 53648, Colonoscopy, flexible; with removal of tumor(s), polyp(s), or other lesion(s) by snare technique 62062, 59, Colonoscopy, flexible; with biopsy, single or multiple Diagnosis Code(s): --- Professional --- D12.3, Benign neoplasm of transverse colon (hepatic flexure or splenic flexure) D12.5, Benign neoplasm of sigmoid colon K64.9, Unspecified hemorrhoids Z12.11, Encounter for screening for malignant neoplasm of colon CPT copyright 2020 [employer]. All rights reserved. The codes documented in this report are preliminary and upon product support engineer review may be revised to meet current compliance requirements. JOSH Arce DO 02/17/2024 1:18:44 PM This report has been signed electronically.Josh Arce DO Number of Addenda: 0 Note Initiated On: 02/17/2024 12:23 PM Scope Withdrawal Time: 0 hours 12 minutes 15 seconds Scope In: 1:00:04 PM Scope Out: 1:16:41 PM Endoscopy Department at [facility] - [address] [place] [phone] Procedure Note Josh Arce DO - 02/17/2024 [facility] Patient Name: Sam Goldstein Procedure Date: 02/17/2024 12:23 PM Date of : 1970 Age: 53 Gender: Female Note Status: Finalized Attending MD: Josh Arce DO, [id number] Procedure Date No Time: 02/17/2024 Procedure: Colonoscopy [...] the physician, the nurse, the anesthesiologist, the tire mounter and thetechnician in the pre-procedure area in [...] retroflexion views. Procedure Code(s): --- Professional --- 14597, Colonoscopy, flexible; with removal of tumor(s), polyp(s), or other lesion(s) by snare technique 17685, 59, Colonoscopy, flexible; with biopsy,single or multiple Diagnosis Code(s): --- Professional --- D12.3, Benign neoplasm of transverse colon (hepatic flexure or splenic flexure) D12.5, Benign neoplasm of sigmoid colon K64.9, Unspecified hemorrhoids Z12.11, Encounter for screening for malignantneoplasm of colon CPT copyright 2020 [employer]. All rights reserved. The codes documented in this report are preliminary and upon product support engineer reviewmay be revised to meet current compliance requirements. JOSH Arce DO 02/17/2024 1:18:44 PM This report has been signed electronically.Josh Arce DO Number of Addenda: 0 Note Initiated On: 02/17/2024 12:23 PM Scope Withdrawal Time: 0 hours 12 minutes 15 seconds Scope In: 1:00:04 PM Scope Out: 1:16:41 PM Endoscopy Department at [facility] - [address] [place] [phone] IMPRESSION: - Hemorrhoids found on perianal exam. [...] MD GI~PROCEDURE ORDERABLES Final Re sult * Diabetes Foot Exam (09/10/2023) Diabetes: Annual Foot Exam Abstracted Historical Provider HEALTH MAINTENANCE Final Result * SUNSHINE SCREENING DIGITAL (04/15/2023 12:46 PM EST) Anatomical Region Laterality Modality Mammography 04/15/2023 8:21 AM EST Narrative 04/15/2023 12:46 PM EST [facility] Diagnostic Imaging Department [address] [place] [id number] Patient: SAM GOLDSTEIN /Age/Sex: 1970 - 52 - F Unit#: [id number] Location/Status: SPDIMAM/REG CLI Mnemonic[facility] Physician: LEONIE BEAL [facility] Screening Digital - 04/15/23 - 54 Report Status:Signed EXAM: [facility] Screening Digital EXAM DATE AND TIME: 04/15/2023 8:55 AM HISTORY: Screening. Mother had breast carcinoma at age 74. Patient's uncle also had breast carcinoma. COMPARISON: , 07/28/19, 08/15/13 TECHNIQUE: Bilateral digital breast tomosynthesis was performed in the CC and MLO projections. Computer aided detection with [employer] 3D 3.1 was employed. TISSUE DENSITY: a. [...] [facility] Diagnostic Imaging Department [address] [place] [address] Patient: SAM GOLDSTEIN /Age/Sex: 1970 - 52 - F Unit#: [id number] Location/Status: [facility] CLI Mnemonic/Ordering Site: [facility] Ordering Physician: LEONIE BEAL [facility] Screening Digital - 04/15/23 - 0854 Report Status:Signed EXAM: [facility] Screening Digital EXAM DATE AND TIME: 04/15/2023 8:55 AM HISTORY: Screening. Mother had breast carcinoma at age 74. Patient'suncle also had breast carcinoma. COMPARISON: , 07/28/19, 08/15/13 TECHNIQUE: Bilateral digital breast tomosynthesis was performed in the CCand MLO projections. Computer aided detection with [employer] 3D 3.1was employed. TISSUE DENSITY: a. The [...] Sign date/Time: 04/15/23 1246 Leonie Beal MD IMG BI PROCEDURES Final Result * Hepatitis C Screening (02/11/2022) Hepatitis C Screening Abstracted us Historical Provider HEALTH MAINTENANCE Final Result from Last 3 Months or Most Recently Relevant to Health Maintenance Insurance [facility] MEDIC[facility] Member Subscriber Plan / Payer (Ef fective 2016-Present) Name:SAM GOLDSTEIN Relation to Subscriber:Self Name:Sam Goldstein Payer ID:[id number] Group ID:[id number] Type:Not on file Address: [place] [address] [address] [id number] Advance Directives Documents on File Type Date Recorded Patient Supervisor Coil Winding Expl anation Advance Directives and Living Will [...] Agents on File Name Relationship [facility] Inocencia Mistry Friend First Alternate Health C are Agent Vivek Mistry Second Alternate Health Care Agent Care 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
== END 2024-11-30 16:01 | disposition home or self-care (01) ==
LOC: HO.PMC 15:28
PROVIDERS: PCP Internal Medicine; Visit Provider Anesthesiology
DX: M47.816 Spondylosis without myelopathy or radiculopathy, lumbar region (principal); M25.552 Pain in left hip; M53.3 Sacrococcygeal disorders, not elsewhere classified; M62.838 Other muscle spasm; M51.369 Other intervertebral disc degeneration, lumbar region without mention of lumbar back pain or lower extremity pain; M54.16 Radiculopathy, lumbar region
CPT/HCPCS: 99214

== ENCOUNTER → 2024-11-30 15:27 | Outpatient (BNVA) | payer OTHER, SELFPAY | PROVIDERS: PCP Internal Medicine; Visit Provider Anesthesiology | DX: M47.816 Spondylosis without myelopathy or radiculopathy, lumbar region (principal); M25.552 Pain in left hip; M53.3 Sacrococcygeal disorders, not elsewhere classified; M62.838 Other muscle spasm; M51.369 Other intervertebral disc degeneration, lumbar region without mention of lumbar back pain or lower extremity pain; M54.16 Radiculopathy, lumbar region | CPT/HCPCS: 99212 ==

== ENCOUNTER 2025-01-09 06:21 | Outpatient (REF) | payer OTHER, SELFPAY ==
--- NOTE | ~2025-01-09 | FL_ITS ---
EXAMINATION: FL GUIDANCE ONLY HISTORY: M47.816 - Spondylosis without myelopathy or radiculopathy, lumbar region COMPARISON: None available. TECHNIQUE: Fluoroscopy time: 39 seconds. Cumulative Dose: 10.00 mGy. DAP: 2099.60 mGycm2 Images: 13. FINDINGS: Fluoroscopic spot films of the lumbar spine demonstrate needles and contrast material in the regions of the bilateral L3-4, L4-5, and L5-S1 facet joints. FL/FL guidance in treatment room IMPRESSION: Fluoroscopy during procedure. Please see procedure report for additional information. Electronically signed by: Bruno Clark MD 01/09/2025 01:09 PM NOAH
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
== END 2025-01-09 06:22 | disposition home or self-care (01) ==
LOC: CF 06:21
PROVIDERS: Visit Provider Anesthesiology
DX: M47.816 Spondylosis without myelopathy or radiculopathy, lumbar region (principal)
CPT/HCPCS: 64493; 64494; J2003; Q9967

== ENCOUNTER 2025-01-09 12:06 | Outpatient (AMB) | payer OTHER, SELFPAY ==
[2025-01-09 12:10] VITALS: BP 134/86; PULSE 80; RESP 16; O2SAT 94; BMI 37.5
--- NOTE | 2025-01-09 12:10 | A.OFFVIS_ITS ---
Vital Signs 01/09/25 12:10 01/09/25 12:39 Height 5 ft Weight 192 lb BMI 37.5 BP 134/86 134/86 Blood Pressure Location Lt brachial Lt brachial Position Sitting Sitting Respiration 16 16 Pulse 80 68 Pulse Source Pulse Oximeter Pulse Oximeter Pulse Oximetry (%) 94 96 Oxygen Delivery Method Room Air Room Air Intake Visit Reasons: Bilateral Diagnostic L3-L4 DR L5 MBB/ Bupi & Epi Allergies No Known Allergies (No Known Allergies*) Allergy (Verified 11/30/24 15:46) PFSH Medical History Morbid obesity Diabetes Asthma Hyperlipidemia Hypertension Kidney stones Surgical History S/P placement of nerve stimulator Hx of lithotripsy Hx of section Hx of colonoscopy Family History Mother Asthma Diabetes Hypertension Breast cancer Hypercholesteremia Hypothyroid Father Diabetes Hypercholesteremia Hypertension Heart abnormality Gangrene associated with diabetes mellitus FHx: cancer of prostate Sister Hypothyroid Diabetes Anemia Social History Household Members: Spouse Housing: Apartment Do you presently have visiting nurse or other home services: No Alcohol intake: never Patient Tobacco Use Status: Never used Tobacco Second Hand Smoke Exposure: No Advance Directives Date on File: 07/01/21 service: No Physical Exam Vital Signs: Last Vital Signs Pulse 68 01/09/25 12:39 Resp 16 01/09/25 12:39 BP 134/86 01/09/25 12:39 Pulse Ox 96 01/09/25 12:39 Oxygen Delivery Method Room Air 01/09/25 12:39 BMI result Body Mass Index 37.5 Assessment & Plan Assessment & Plan (1) Spondylosis of lumbar spine: Code(s): M47.816 - Spondylosis without myelopathy or radiculopathy, lumbar region Category: Medical Plan Diagnostic medial branch block L3,L4 dorsal ramus L5 bilateral.? ? ?Informed consent was explained to the patient. All questions were explained and? answered.? The patient was taken inside the operating room where he was positioned prone on the operating table. Time-out was performed delineating correct site, side, the nature of the p rocedure, patient's allergy, . All operating room staff was participating in OR time-out procedure. ? ? The lower back was prepped with ChloraPrep and draped with sterile utility towels.? C-arm was brought over the operating field and sq picture of L4-, L5 vertebra and S1 AREA were delineated on the screen.? Point of interest were delineated as confluence of superior articular process of L4 and L5 vertebra bilaterally with corresponding transverse processes as well as confluence of the sacral alae bilaterally with superior articular process of S1.? The projection of the point of interest to the skin were injected with the small amount of local anesthetic lidocaine 2% mixed with ropivacaine 0.5% 1-1 approximately 1 cc.? After that 22 gauge 5 inch spinal needle was driven sequentially to the points of interest in tunnel vision fashion. After needles gently contacted the bone at the point of interests the needle was injected with small amount of the contrast.? The injection of the con trast did not demonstrate any intravascular or intrathecal spread of the contrast.? After that injection of the? ropivacaine 0.5%-1cc was performed at each needle location.?After that the needles were removed and Bandaids were applied Orders: Orders FL guidance in treatment room 01/09/25 M47.816 - Spondylosis without myelopathy or radiculopathy, lumbar region Coding Level of Care Code Procedure Only Diagnoses Spondylosis of lumbar spine M47.816
[2025-01-09 12:39] VITALS: BP 134/86; PULSE 68; RESP 16; O2SAT 96
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
--- OUTSIDE RECORDS SUMMARY | 2025-01-09 15:49 | XMS_ITS | Clinical Summary ---
[facility] Address [address] [address] Care Team Providers Care Top Stop Attacher Name Role Phone Unavailable Primary Care Provider Unavailabl e Social History Tobacco Use Types Packs/Day Years Used Date Smoking Tobacco: Never Assessed Comments Unknown Sex and Gender Information Value Date Recorded Sex Assigned at Not on file Legal Sex Female 1:36 PM EDT Gender Identity Not on file Sexual Orientation Not on file Plan of Treatment Health Maintenance Due Date Last Done Comments Breast Cancer Screening 1970 Hepatitis B Vaccine (1 of 3 - 19+ 3-dose series) 04/24 Colorectal Cancer Screening: Annual FOBT 2017 Colorectal Cancer Screening: Colonoscopy 2017 Colorectal Cancer Screening: Sigmoidoscopy 2017 Pneumococcal Vaccine: 50+ Years (1 of 1 - PCV) 019 Influenza Vaccine (#1) 2024
== END 2025-01-09 12:41 | disposition home or self-care (01) ==
LOC: HO.PMCPRC 12:06
PROVIDERS: PCP Internal Medicine; Visit Provider Anesthesiology
DX: M47.816 Spondylosis without myelopathy or radiculopathy, lumbar region (principal)
CPT/HCPCS: 64493; 64494

== ENCOUNTER 2025-01-25 11:18 | Outpatient (AMB) | payer OTHER, SELFPAY ==
[2025-01-25 11:27] VITALS: BP 161/79; PULSE 80; RESP 16; O2SAT 95; BMI 37.7
--- NOTE | 2025-01-25 11:27 | A.OFFVIS_ITS ---
Vital Signs 01/25/25 11:27 Height 5 ft Weight 193 lb BMI 37.7 BP 161/79 H Blood Pressure Location Rt brachial Position Sitting Respiration 16 Pulse 80 Pulse Source Pulse Oximeter Pulse Oximetry (%) 95 Oxygen Delivery Method Room Air Intake Visit Reasons: S/P Bilateral Diagnostic L3-L4 DR L5 MBB Converter Operator Required: Yes Converter Operator Language: Principal Android Developer Services: Converter Operator Present Converter Operator Name: Ghada EstradaJAMSHID north Information Interpreted: non-clinical & clinical Accompanied by: Self / Same As Patient Allergies No Known Allergies (No Known Allergies*) Allergy (Verified 01/25/25 11:34) HPI Comments Details: Ms. Tejal Goldstein is back in my office after diagnostic medial branch block 2. To prepare her for radiofrequency ablation of the lumbar medial branches L3-L4 L5. Unfortunately this time diagnostic procedure resulted only in 2 hours of pain relief. After that she reported increasing pain on the right side and she stated that there were still no pain on the left side. This is therefore not an indication for radiofrequency ablation. The patient is very interested in exploration of the peripheral nerve stimulation of the lumbar spine. She had a trial of sprint PNS in the past and reported very good pain relief for the 1st few days after the trial however unfortunately she fractured her lead and the procedure was aborted. She wants to consider implantation of the Curonix PNS at L5 bilateral position. She needs to get psychological evaluation. She brought us the handwritten note from her psychologist however we need a printout version from the same office to schedule her for the implantation. As soon as the proper version of the psychological evaluation will be available for us we will schedule her for the procedure. Prior: Sprint stimulation was not successful for this patient. Her stimulating electrode was fractured and removed few days after insertion. The procedure is not recommended to repeat by sprint specialty sales representative due to high body mass. Transforaminal epidural steroid injections resulted in no pain improvement. Multiple sessions of physical therapy resulted in no improvement. Multiple medications including NSAIDs resulted in no improvement. Pain pump was discussed. Baclofen seem to be appropriate medication maybe in combination with bupivacaine. The patient received today again the formulation of the statement the psychologist need to submit to us to allow us to do pain pump trial. [facility] Medical History Morbid obesity Diabetes Asthma Hyperlipidemia Hypertension Kidney stones Surgical History S/P placement of nerve stimulator Hx of lithotripsy Hx of section Hx of colonoscopy Family History Mother Asthma Diabetes Hypertension Breast cancer Hypercholesteremia Hypothyroid Father Diabetes Hypercholesteremia Hypertension Heart abnormality Gangrene associated with diabetes mellitus FHx: cancer of prostate Sister Hypothyroid Diabetes Anemia Social History Household Members: Spouse Housing: Apartment Do you presently have visiting nurse or other home services: No Alcohol intake: never Patient Tobacco Use Status: Never used Tobacco Second Hand Smoke Exposure: No Advance Directives Date on File: 07/01/21 service: No Review of Systems Const All systems reviewed & are unremarkable except as noted in HPI and below Physical Exam Vital Signs: Last Vital Signs Pulse 80 01/25/25 11:27 Resp 16 01/25/25 11:27 BP 161/79 H 01/25/25 11:27 Pulse Ox 95 01/25/25 11:27 Oxygen Delivery Method Room Air 01/25/25 11:27 BMI result Body Mass Index 37.7 Const General: healthy appearing and no acute distress Resp Effort & Inspection: normal respiratory effort Auscultation: clear to auscultation bilaterally Cardio Rate: regular rate Rhythm: regular rhythm GI Auscultation: normal bowel sounds Back/Spine/Pelvis Other: Tenderness on palpation in paraspinal left and midline spinal region of the lumbar spine. SLR is positive on the left. Lassegue test is positive on the left as well. Extrem General: Yes normal to inspection Assessment & Plan Assessment & Plan (1) Spondylosis of lumbar spine: Code(s): M47.816 - Spondylosis without myelopathy or radiculopathy, lumbar region Category: Medical (2) Left hip pain: Code(s): M25.552 - Pain in left hip Category: Medical (3) Sacroiliac joint pain: Code(s): M53.3 - Sacrococcygeal disorders, not elsewhere classified Category: Medical (4) Muscle spasm: Code(s): M62.838 - Other muscle spasm Category: Medical (5) Disc degeneration, lumbar: Code(s): M51.36 - Other intervertebral disc degeneration, lumbar region Category: Medical (6) Radiculopathy, lumbar region: Code(s): M54.16 - Radiculopathy, lumbar region Category: Medical Plan Transforaminal epidural steroid injections resulted in no pain improvement. Multiple sessions of physical therapy resulted in no improvement. Multiple medications discussed as above resulted in no improvement. Pain pump was continued to be contemplated for this patient, medial branch block diagnostic L3-L4 dorsal ramus L5 was successful for alleviate her pain for 6 hours 100%. After that she had sprint stimulation of the medial branches however unfortunately after few days of 80% pain improvement she fractured her lead and the procedure needs to be aborted. She is working on psychological evaluation. See as above. As soon as we obtain psychological evaluation we will schedule her for the procedure of Curonix PNS bilateral stimulation at L5. Diagnostic number 2 Medial branch block resulted in equivocal outcome with right sided pain would be relieved only for 2 hours. Therefore the RFA would not be a good option for this patient. Coding Level of Care Code Est Pt Level 3 (10916) Diagnoses Spondylosis of lumbar spine M47.816 Left hip pain M25.552 Sacroiliac joint pain M53.3 Muscle spasm M62.838 Disc degeneration, lumbar M51.36 Radiculopathy, lumbar region M54.16
== END 2025-01-25 11:46 | disposition home or self-care (01) ==
LOC: HO.PMC 11:18
PROVIDERS: PCP Internal Medicine; Visit Provider Anesthesiology
DX: M47.816 Spondylosis without myelopathy or radiculopathy, lumbar region (principal); M25.552 Pain in left hip; M53.3 Sacrococcygeal disorders, not elsewhere classified; M62.838 Other muscle spasm; M51.369 Other intervertebral disc degeneration, lumbar region without mention of lumbar back pain or lower extremity pain; M54.16 Radiculopathy, lumbar region
CPT/HCPCS: 99213

== ENCOUNTER → 2025-01-25 11:18 | Outpatient (BNVA) | payer OTHER, SELFPAY | PROVIDERS: PCP Internal Medicine; Visit Provider Anesthesiology | DX: M47.816 Spondylosis without myelopathy or radiculopathy, lumbar region (principal); M25.552 Pain in left hip; M53.3 Sacrococcygeal disorders, not elsewhere classified; M62.838 Other muscle spasm; M51.369 Other intervertebral disc degeneration, lumbar region without mention of lumbar back pain or lower extremity pain | CPT/HCPCS: 99212 ==

== ENCOUNTER 2025-02-01 15:05 | Outpatient (AMB) | payer OTHER, SELFPAY ==
[2025-02-01 15:26] VITALS: BP 157/84; PULSE 79; RESP 16; O2SAT 95; BMI 35.7
--- NOTE | 2025-02-01 15:26 | MHC.OFFVIS ---
Vital Signs 02/01/25 15:26 Height 5 ft Weight 183 lb BMI 35.7 BP 157/84 H Blood Pressure Location Rt brachial Position Sitting Respiration 16 Pulse 79 Pulse Source Pulse Oximeter Pulse Oximetry (%) 95 Oxygen Delivery Method Room Air Intake Visit Reasons: Discuss Medication Options Glass Products Inspector Required: Yes Glass Products Inspector Language: Physician Office Rep Services: Glass Products Inspector Present Glass Products Inspector Name: Nikita [id number] Information Interpreted: non-clinical & clinical Accompanied by: Self / Same As Patient Allergies No Known Allergies (No Known Allergies*) Allergy (Verified 02/01/25 15:29) HPI Comments Details: Ms. Tejal Goldstein is back in my office to report the results of the baclofen medication. She reports that 20 mg of baclofen do not help her. She is taking 3 times a day this medication and she is not feeling any improvement. I decided to stop baclofen and start her on tizanidine. She is not taking any beta-blockers. I will prescribe her 4 mg of tizanidine 3 times a day. I explained to her that if her tizanidine make her dizzy or sleepy to take 1-1/2 pill at night. The rest of the dose she can not divide in half a pills during the daytime. Patient expressed understanding. We are waiting for her psychological evaluation to be delivered to us and then we will schedule her for permanent implantation of Curonix PNS in bilateral L5 positioned. Prior: diagnostic medial branch block 2 to prepare her for radiofrequency ablation of the lumbar medial branches L3-L4 L5. Unfortunately this time diagnostic procedure resulted only in 2 hours of pain relief. After that she reported increasing pain on the right side and she stated that there were still no pain on the left side. This is therefore not an indication for radiofrequency ablation. The patient is very interested in exploration of the peripheral nerve stimulation of the lumbar spine. She had a trial of sprint PNS in the past and reported very good pain relief for the 1st few days after the trial however unfortunately she fractured her lead and the procedure was aborted. She wants to consider implantation of the Curonix PNS at L5 bilateral position. She needs to get psychological evaluation. She brought us the handwritten note from her psychologist however we need a printout version from the same office to schedule her for the implantation. As soon as the proper version of the psychological evaluation will be available for us we will schedule her for the procedure. Prior: On the sprint stimulation she reported excellent pain relief until she fractured her electrodes.. Her stimulating electrode was fractured and removed few days after insertion. The procedure is not recommended to repeat by [employer] services sales representative due to high body mass. Transforaminal epidural steroid injections resulted in no pain improvement. Multiple sessions of physical therapy resulted in no improvement. Multiple medications including NSAIDs resulted in no improvement. Pain pump was discussed. Baclofen seem to be appropriate medication maybe in combination with bupivacaine. The patient received today again the formulation of the statement the psychologist need to submit to us to allow us to do pain pump trial. [facility] Medical History Morbid obesity Diabetes Asthma Hyperlipidemia Hypertension Kidney stones Surgical History S/P placement of nerve stimulator Hx of lithotripsy Hx of section Hx of colonoscopy Family History Mother Asthma Diabetes Hypertension Breast cancer Hypercholesteremia Hypothyroid Father Diabetes Hypercholesteremia Hypertension Heart abnormality Gangrene associated with diabetes mellitus FHx: cancer of prostate Sister Hypothyroid Diabetes Anemia Social History Household Members: Spouse Housing: Apartment Do you presently have visiting nurse or other home services: No Alcohol intake: never Patient Tobacco Use Status: Never used Tobacco Second Hand Smoke Exposure: No Advance Directives Date on File: 07/01/21 service: No Review of Systems Const All systems reviewed & are unremarkable except as noted in HPI and below Physical Exam Vital Signs: Last Vital Signs Pulse 79 02/01/25 15:26 Resp 16 02/01/25 15:26 BP 157/84 H 02/01/25 15:26 Pulse Ox 95 02/01/25 15:26 Oxygen Delivery Method Room Air 02/01/25 15:26 BMI result Body Mass Index 35.7 Const General: healthy appearing and no acute distress Resp Effort & Inspection: normal respiratory effort Auscultation: clear to auscultation bilaterally Cardio Rate: regular rate Rhythm: regular rhythm GI Auscultation: normal bowel sounds Back/Spine/Pelvis Other: Tenderness on palpation in paraspinal left and midline spinal region of the lumbar spine. SLR is positive on the left. Lassegue test is positive on the left as well. Extrem General: Yes normal to inspection Assessment & Plan Assessment & Plan (1) Spondylosis of lumbar spine: Code(s): M47.816 - Spondylosis without myelopathy or radiculopathy, lumbar region Category: Medical (2) Left hip pain: Code(s): M25.552 - Pain in left hip Category: Medical (3) Sacroiliac joint pain: Code(s): M53.3 - Sacrococcygeal disorders, not elsewhere classified Category: Medical (4) Muscle spasm: Code(s): M62.838 - Other muscle spasm Category: Medical (5) Disc degeneration, lumbar: Code(s): M51.36 - Other intervertebral disc degeneration, lumbar region Category: Medical (6) Radiculopathy, lumbar region: Code(s): M54.16 - Radiculopathy, lumbar region Category: Medical Plan Transforaminal epidural steroid injections resulted in no pain improvement. Multiple sessions of physical therapy resulted in no improvement. Multiple medications discussed as above resulted in no improvement. Pain pump was continued to be contemplated for this patient, medial branch block diagnostic L3-L4 dorsal ramus L5 was successful for alleviate her pain for 6 hours 100%. After that she had sprint stimulation of the medial branches however unfortunately after few days of 85% pain improvement she fractured her lead and the procedure needs to be aborted. She is working on psychological evaluation. See as above. As soon as we obtain psychological evaluation we will schedule her for the procedure of Curonix PNS bilateral stimulation at L5. Diagnostic number 2 Medial branch block resulted in equivocal outcome with right sided pain would be relieved only for 2 hours. Therefore the RFA would not be a good option for this patient. We are waiting for this patient's psychiatrist to provide us psychiatric clearance for the implantable device procedure. Last time we receive clearance written on the prescription page. We need formal page with psychiatric evaluation to allow us to go for the procedure. Medications: New tizanidine 4 mg PO Q8H PRN 90 tabs 8RF muscle spasticity 30 days Discontinued allopurinol Discontinued Reason: Doctor's Order 100 mg PO DAILY 90 days 90 tabs 1RF N20.0 - Calculus of kidney baclofen Discontinued Reason: Doctor's Order 20 mg PO TID 30 days PRN 90 tabs 8RF Spasticity Coding Level of Care Code Est Pt Level 3 (12220) Diagnoses Spondylosis of lumbar spine M47.816 Left hip pain M25.552 Sacroiliac joint pain M53.3 Muscle spasm M62.838 Disc degeneration, lumbar M51.36 Radiculopathy, lumbar region M54.16
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
--- OUTSIDE RECORDS SUMMARY | 2025-02-01 19:09 | XMS_ITS | Clinical Summary ---
Author Organization [facility] Address [address] [address] Care Team Providers Care Go Cart Mechanic Name Role Phone Unavailable Primary Care Provider [...]
== END 2025-02-01 15:49 | disposition home or self-care (01) ==
LOC: HO.PMC 15:05
PROVIDERS: PCP Internal Medicine; Visit Provider Anesthesiology
DX: M47.816 Spondylosis without myelopathy or radiculopathy, lumbar region (principal); M25.552 Pain in left hip; M53.3 Sacrococcygeal disorders, not elsewhere classified; M62.838 Other muscle spasm; M51.369 Other intervertebral disc degeneration, lumbar region without mention of lumbar back pain or lower extremity pain; M54.16 Radiculopathy, lumbar region
CPT/HCPCS: 99214

== ENCOUNTER → 2025-02-01 15:05 | Outpatient (BNVA) | payer OTHER, SELFPAY | PROVIDERS: PCP Internal Medicine; Visit Provider Anesthesiology | DX: M47.816 Spondylosis without myelopathy or radiculopathy, lumbar region (principal); M25.552 Pain in left hip; M53.3 Sacrococcygeal disorders, not elsewhere classified; M62.838 Other muscle spasm; M51.369 Other intervertebral disc degeneration, lumbar region without mention of lumbar back pain or lower extremity pain; M54.16 Radiculopathy, lumbar region | CPT/HCPCS: 99212 ==